=== PATIENT | female | born 1935 | race Caucasian/White ===

== ENCOUNTER 2016-05-24 10:44 | Outpatient (RCR) | payer MEDICARE ==
--- OUTSIDE RECORDS SUMMARY | 2016-04-25 13:09 | XMS REPORT | Continuity of Care Document ---
Author Author [facility] Organization [facility] Address Unknown Phone Unavailable Allergies Active Description Code Type Severity Reaction Onset Reported/Identified Relationship to Patient Clinical Status Yes benazepril HCl [id number] Drug Allergy Unknown COUGH 05/15/2012 Yes Cephalexin Monohydrate [id number] Drug Allergy Unknown RASH 05/15/2012 Yes hydrochlorothiazide [id number] Drug Allergy Unknown ITCHING 05/15/2012 Yes irbesartan [id number] Drug Allergy Unknown RASH 05/15/2012 Yes pantoprazole sodium [id number] Drug Allergy Unknown N/V 05/15/2012 Yes sulfamethoxazole [id number] Drug Allergy Unknown RASH 05/15/2012 Yes trimethoprim [id number] Drug Allergy Unknown RASH 05/15/2012 Medications Problems Date Dx Coded Attending Type Code Diagnosis Diagnosed By 05/20/2012 Ot 244.9 05/20/2012 Ot 250.00 05/20/2012 Ot 272.0 05/20/2012 Ot 300.00 05/20/2012 Ot 311 05/20/2012 Ot 401.9 05/20/2012 Ot 493.90 05/20/2012 Ot 530.81 05/20/2012 Ot 564.1 05/20/2012 Ot 724.3 05/20/2012 Ot 729.1 05/20/2012 Ot 824.8 05/20/2012 Ot E000.8 05/20/2012 Ot E849.0 05/20/2012 Ot E927.0 05/20/2012 Ot V57.1 05/20/2012 Ot V57.21 10/24/2012 ELLI ALMONTE MD Ot 724.3 10/24/2012 ELLI ALMONTE MD Ot V57.1 05/22/2013 IZABELLA MENSAH APRN Ot 599.0 05/22/2013 IZABELLA MENSAH APRN Ot 790.29 05/22/2013 IZAEBLLA MENSAH APRN Ot E849.0 05/22/2013 IZABELLA MENSAH APRN Ot E932.0 09/17/2013 ADONIS MAY Ot 722.4 09/17/2013 ADONIS MAY Ot V57.1 11/12/2014 Ot V76.12 11/12/2014 Ot V76.12 11/12/2014 Ot 824.8 11/12/2014 Ot E000.8 11/12/2014 Ot E849.0 11/12/2014 Ot E888.9 11/12/2014 Ot 824.8 11/12/2014 Ot E000.8 11/12/2014 Ot E928.9 11/12/2014 Ot V72.63 11/12/2014 Ot V72.81 11/12/2014 Ot V74.8 11/12/2014 TROY OSBORN DO Ot 724.02 11/12/2014 TROY OSBORN DO Ot 726.5 12/13/2014 ELLI ALMONTE MD Ot Z12.31 01/04/2015 ELLI ALMONTE MD Ot Z12.31 Procedures Results Encounters ACCT No. Visit Date/Time Discharge Status Pt. Type Provider Facility Loc./Unit Complaint [id number] 12/09/2014 10:32:00 2014 23:59:59 CLS Outpatient ELLI ALMONTE MD [facility] RAD [id number] 08/20/2013 12:56:00 2013 14:41:00 DIS Outpatient ADONIS MAY [facility] REHAB [id number] 05/22/2013 20:30:00 2013 21:55:00 DIS Emergency IZABELLA MENSAH APRN [facility] ER [id number] 05/14/2013 13:29:00 2013 23:59:59 CLS Outpatient TROY OSBORN DO [facility] RAD [id number] 08/26/2012 11:15:00 2012 11:22:00 DIS Outpatient ELLI ALMONTE MD [facility] REHAB [id number] 04/25/2016 14:40:00 PEN Preadmit ELLI ALMONTE MD [facility] REHAB PERIPHERAL NEUROPATHY;DECONDITIONING;FALLS [id number] 11/12/2014 15:26:00 Document Registration [id number] 05/19/2012 08:09:00 Document Registration [id number] 05/15/2012 13:59:00 Document Registration [id number] 06/28/2011 13:49:00 Document Registration [id number] 05/18/2010 10:49:00 Document Registration
[~2016-05-24 10:44] MED LIST: ALBU8.5H2 IH; AMLO5TAB2 PO; ASP81TEC PO; ATEN25TA PO; CETI10TA17 PO; ESCT10T PO; FURO40TA4 PO; GLIM1TAB PO; LOPE2TAB17 PO; LOSA50TA6 PO; LVT.05T PO; METF500T8 PO; NITR-65 PO; OMEG1CAP51 PO; PROBIOTIC1 EACH PO; RABE20TA PO; [UNRECOGNIZED DRUG - OTHER] PO
== END 2016-05-24 11:13 | disposition home or self-care (01) ==
PROVIDERS: ATTEND Internal Medicine
DX: E11.40 Type 2 diabetes mellitus with diabetic neuropathy, unspecified (principal); R27.9 Unspecified lack of coordination; R29.6 Repeated falls

== ENCOUNTER 2016-07-06 12:22 | Emergency (ER) | payer MEDICARE ==
[~2016-07-06] VITALS: Ht 157.5 cm; Wt 86.2 kg
--- NOTE | 2016-07-06 12:40 | ED Cough/URI ---
General Stated Complaint: SOA,COUGH Source: patient Exam Limitations: no limitations History of Present Illness Time seen by provider: 12:39 Initial Comments Brought to ER by hospital staff from the cafeteria where she was noted to be coughing quite dramatically and there was concern for an asthma attack. Patient has a history of asthma but is not on medication for that any longer. She denies feeling short of breath at this time is no longer coughing. She states that she's been having these episodes more frequently over the past few weeks. No fevers or chills. Timing/Duration: just prior to arrival Severity/Quality: dry cough Associated Symptoms: denies symptoms Allergies and Home Medications Allergies Coded Allergies: Cephalexin Monohydrate (Unverified Allergy, RASH, 05/15/12) Sulfamethoxazole (Unverified Allergy, RASH, 05/15/12) benazepril HCl (Unverified Allergy, COUGH, 05/15/12) hydrochlorothiazide (Unverified Allergy, ITCHING, 05/15/12) irbesartan (Unverified Allergy, RASH, 05/15/12) pantoprazole sodium (Unverified Allergy, N/V, 05/15/12) trimethoprim (Unverified Allergy, RASH, 05/15/12) Home Medications Amlodipine Besylate 5 Mg Tablet, 5 MG PO HS, (Reported) Aspirin 81 Mg Tabec, 81 MG PO HS, (Reported) Atenolol 25 Mg Tablet, 25 MG PO DAILY, (Reported) Benzonatate 100 Mg Capsule, 100 MG PO TID PRN for COUGH, #14 Prescribed by: IZABELLA MENSAH on 07/06/16 1331 Escitalopram Oxalate 10 Mg Tablet, 1 EACH PO DAILY, (Reported) Furosemide 40 Mg Tablet, 40 MG PO DAILY, (Reported) Glimepiride 1 Mg Tablet, 0.5 MG PO BID, (Reported) TAKES 1/2 TAB OF 1 MG BEFORE BREAKFAST AND BEFORE SUPPER Lactobacillus Rhamnosus Gg 1 Each Capsule, 1 TAB PO DAILY, (Reported) Levothyroxine Sodium 50 Mcg Tablet, 50 MCG PO DAILY, (Reported) Loperamide Hcl 2 Mg Tablet, 4 MG PO DAILY PRN, (Reported) PRN DIARRHEA Losartan Potassium 50 Mg Tablet, 50 MG PO DAILY, (Reported) Metformin Hcl 500 Mg Tab.sr.24h, 500 MG PO BID WITH MEALS, (Reported) [place]-3 Fatty Acids/Fish Oil 1 Each Capsule, 1,000 MG PO BID, (Reported) Rabeprazole Sodium 20 Mg Tablet.dr, 20 MG PO DAILY, (Reported) [Mult-Betic] , 2 TAB PO DAILY, (Reported) OTC MULTIVITAMIN WITH MINERALS Constitutional: see HPI, No chills, No fever EENTM: see HPI Respiratory: see HPI, cough Cardiovascular: no symptoms reported Genitourinary: no symptoms reported Musculoskeletal: no symptoms reported Skin: no symptoms reported Psychiatric/Neurological: No Symptoms Reported Past Aloxjvy-Cpdffc-Ceuzoc Hx Patient Social History Recent Foreign Travel: No Contact w/Someone Who Travel: No Immunizations Up To Date Date of Pneumonia Vaccine: Nov 18, 2009 Date of Influenza Vaccine: Oct 20, 2011 Surgeries HX Surgeries: Yes Respiratory Hx Respiratory Disorders: Yes Cardiovascular Hx Cardiac Disorders: Yes Neurological Hx Neurological Disorders: Yes (SCIATICA, FIBROMYALGIA) Reproductive System Hx Reproductive Disorders: No Genitourinary Hx Genitourinary Disorders: No Gastrointestinal Hx Gastrointestinal Disorders: Yes Musculoskeletal Hx Musculoskeletal Disorders: Yes (ARTHITIS) Endocrine Hx Endocrine Disorders: Yes HEENT HX ENT Disorders: No Blood Transfusions Hx Blood Disorders: No Physical Exam Vital Signs Vital Sign - Last 12Hours 07/06/16 13:00 Temp 98.2 Pulse 80 Resp 13 B/P (MAP) 180/90 Pulse Ox 95 Capillary Refill : General Appearance: WD/WN, no apparent distress Eyes: Bilateral Eye EOMI, Bilateral Eye Normal Inspection, Bilateral Eye PERRL HEENT: PERRL/EOMI, normal ENT inspection Neck: non-tender, full range of motion Respiratory: normal breath sounds, no respiratory distress, no accessory muscle use, No decreased breath sounds, No accessory muscle use, other (good air movement with no wheezing) Cardiovascular: regular rate, rhythm Gastrointestinal: normal bowel sounds, non tender, soft Extremities: normal range of motion, non-tender Neurologic/Psychiatric: alert, normal mood/affect, oriented x 3 Skin: normal color, warm/dry Progress/Results/Core Measures Results/Orders Lab Results Laboratory Tests Test 07/06/16 13:10 Range/Units White Blood Count 6.8 4.3-11.0 10^3/uL Red Blood Count 4.92 4.35-5.85 10^6/uL Hemoglobin 13.4 11.5-16.0 G/DL Hematocrit 40 35-52 % Mean Corpuscular Volume 82 80-99 FL Mean Corpuscular Hemoglobin 27 25-34 PG Mean Corpuscular Hemoglobin Concent 33 32-36 G/DL Red Cell Distribution Width 13.8 10.0-14.5 % Platelet Count 242 130-400 10^3/uL Mean Platelet Volume 9.9 7.4-10.4 FL Neutrophils (%) (Auto) 71 42-75 % Lymphocytes (%) (Auto) 19 12-44 % Monocytes (%) (Auto) 9 0-12 % Eosinophils (%) (Auto) 2 0-10 % Basophils (%) (Auto) 1 0-10 % Neutrophils # (Auto) 4.8 1.8-7.8 X 10^3 Lymphocytes # (Auto) 1.3 1.0-4.0 X 10^3 Monocytes # (Auto) 0.6 0.0-1.0 X 10^3 Eosinophils # (Auto) 0.1 0.0-0.3 10^3/uL Basophils # (Auto) 0.1 0.0-0.1 10^3/uL Sodium Level 139 135-145 MMOL/L Potassium Level 4.2 3.6-5.0 MMOL/L Chloride Level 107 98-107 MMOL/L Carbon Dioxide Level 22 21-32 MMOL/L Anion Gap 10 5-14 MMOL/L Blood Urea Nitrogen 8 7-18 MG/DL Creatinine 0.81 0.60-1.30 MG/DL Estimat Glomerular Filtration Rate > 60 BUN/Creatinine Ratio 10 Glucose Level 231 H 70-105 MG/DL Calcium Level 9.1 8.5-10.1 MG/DL Total Bilirubin 0.5 0.1-1.0 MG/DL Aspartate Amino Transf (AST/SGOT) 25 5-34 U/L Alanine Aminotransferase (ALT/SGPT) 21 0-55 U/L Alkaline Phosphatase 86 40-136 U/L Total Protein 6.6 6.4-8.2 G/DL Albumin 4.0 3.2-4.5 G/DL My Orders Orders - IZABELLA MENSAH APRN Saline Lock/Iv-Start (07/06/16 12:29) Ekg Tracing (07/06/16 12:29) Cbc With Automated Diff (07/06/16 12:29) Comprehensive Metabolic Panel (07/06/16 12:29) Chest Pa/Lat (2 View) (07/06/16 12:29) Vital Signs/I&O Vital Sign - Last 12Hours 07/06/16 13:00 Temp 98.2 Pulse 80 Resp 13 B/P (MAP) 180/90 Pulse Ox 95 Departure Impression Impression: Primary Impression: Cough Disposition: HOME, SELF-CARE Condition: Stable Departure-Patient Inst. Decision time for Depature: 13:30 Referrals: ELLI ALMONTE MD (PCP/Family) Primary Care Physician Patient Instructions: Cough, Adult (DC) Add. Discharge Instructions: 1. Follow-up with your regular doctor next week 2. Return to ER for any concerns 3. Medication as directed Scripts Benzonatate (Tessalon Perle) 100 Mg Capsule 100 MG PO TID Y for COUGH, #14 CAP Prov: IZABELLA MENSAH APRN 07/06/16 Copy Copies To 1: ELLI ALMONTE MD, PETER J APRN July 06, 2016 12:40
[2016-07-06 13:18] LABS: BASOPHILS # (AUTO) 0.1 10^3/uL (0.0-0.1); BASOPHILS % (AUTO) 1 % (0-10); EOSINOPHILS # (AUTO) 0.1 10^3/uL (0.0-0.3); EOSINOPHILS % (AUTO) 2 % (0-10); LYMPHOCYTES # (AUTO) 1.3 X 10^3 (1.0-4.0); LYMPHOCYTES % (AUTO) 19 % (12-44); MEAN CORPUSCULAR HEMOGLOBIN 27 PG (25-34); MEAN CORPUSCULAR HGB CONC 33 G/DL (32-36); MEAN CORPUSCULAR VOLUME 82 FL (80-99); MEAN PLATELET VOLUME 9.9 FL (7.4-10.4); MONOCYTES # (AUTO) 0.6 X 10^3 (0.0-1.0); MONOCYTES % (AUTO) 9 % (0-12); NEUTROPHILS # (AUTO) 4.8 X 10^3 (1.8-7.8); NEUTROPHILS % (AUTO) 71 % (42-75); PLATELET COUNT 242 10^3/uL (130-400); RED BLOOD COUNT 4.92 10^6/uL (4.35-5.85); RED CELL DISTRIBUTION WIDTH 13.8 % (10.0-14.5); WHITE BLOOD COUNT 6.8 10^3/uL (4.3-11.0)
[2016-07-06] MEDS ORDERED: BENZ-13 PO (13:31)
[2016-07-06 13:35] LABS: ALANINE AMINOTRANSFERASE 21 U/L (0-55); ANION GAP 10 MMOL/L (5-14); ASPARTATE AMINO TRANSFERASE 25 U/L (5-34); BILIRUBIN,TOTAL 0.5 MG/DL (0.1-1.0); BLOOD UREA NITROGEN 8 MG/DL (7-18); BUN/CREATININE RATIO 10; CALCIUM 9.1 MG/DL (8.5-10.1); CARBON DIOXIDE 22 MMOL/L (21-32); CHLORIDE 107 MMOL/L (98-107); CREATININE SERUM 0.81 MG/DL (0.60-1.30); GFR ESTIMATED > 60; GLUCOSE 231 MG/DL (70-105); POTASSIUM 4.2 MMOL/L (3.6-5.0); SODIUM 139 MMOL/L (135-145); TOTAL PROTEIN 6.6 G/DL (6.4-8.2)
--- NOTE | 2016-07-06 13:36 | Diagnostic Imaging Report ---
INDICATION: Coughing fit after eating. FINDINGS: PA and lateral views show the lungs to be well-aerated and clear. No infiltrates to suggest aspiration. No radiopaque foreign bodies. The heart is not enlarged. There is no pulmonary edema. Hilar adenopathy. No pneumothorax or pleural effusion. IMPRESSION: Normal PA and lateral chest. Dictated by: Dictated on workstation # [id number]
[2016-07-06 14:07] VITALS: BP 164/69
== END 2016-07-06 14:10 | disposition home or self-care (01) ==
LOC: EDUNIT# 12:22 → ER 12:24
DX: R05 Cough (principal); E11.9 Type 2 diabetes mellitus without complications; J45.909 Unspecified asthma, uncomplicated; Z79.82 Long term (current) use of aspirin; Z79.899 Other long term (current) drug therapy
CPT/HCPCS: 36415; 71020; 80053; 85025; 93005

== ENCOUNTER 2016-08-15 17:07 | Observation (INO) | payer MEDICARE ==
[~2016-08-15] VITALS: Ht 157.5 cm; Wt 86.2 kg
[~2016-08-15 17:07] MED LIST changes: +BENZ-13 PO
--- OUTSIDE RECORDS SUMMARY | 2016-08-15 17:13 | XMS REPORT | Continuity of Care Document ---
Author Author [facility] Organization [facility] Address Unknown Phone Unavailable Allergies Active Description Code Type Severity Reaction Onset Reported/Identified Relationship to Patient Clinical Status Yes benazepril HCl [id number] Drug Allergy Unknown COUGH 05/15/2012 Yes Cephalexin Monohydrate [id number] Drug Allergy Unknown RASH 05/15/2012 Yes hydrochlorothiazide [id number] Drug Allergy Unknown ITCHING 05/15/2012 Yes irbesartan [id number] Drug Allergy Unknown RASH 05/15/2012 Yes pantoprazole sodium [id number] Drug Allergy Unknown N/V 05/15/2012 Yes sulfamethoxazole [id number] Drug Allergy Unknown RASH 05/15/2012 Yes trimethoprim [id number] Drug Allergy Unknown RASH 05/15/2012 Medications Problems [...] 05/22/2013 IZABELLA MENSAH APRN Ot 790.29 05/22/2013 IZABELLA MENSAH APRN Ot E849.0 05/22/2013 IZABELLA MENSAH APRN Ot E932.0 09/17/2013 ADONIS MAY Ot 722.4 09/17/2013 ADONIS MAY Ot V57.1 11/12/2014 Ot V76.12 11/12/2014 Ot V76.12 11/12/2014 Ot 824.8 11/12/2014 Ot E000.8 11/12/2014 Ot E849.0 11/12/2014 Ot E888.9 11/12/2014 Ot 824.8 11/12/2014 Ot E000.8 11/12/2014 Ot E928.9 11/12/2014 Ot V72.63 11/12/2014 Ot V72.81 11/12/2014 Ot V74.8 11/12/2014 ANURAG DO, TROY F Ot 724.02 11/12/2014 ANURAG DO, TROY F Ot 726.5 12/13/2014 ELLI ALMONTE MD Ot Z12.31 01/04/2015 ELLI ALMONTE MD Ot Z12.31 05/01/2016 ELLI ALMONTE MD Ot E11.40 TYPE 2 DIABETES MELLITUS WITH DIABETIC N 05/01/2016 ELLI ALMONTE MD Ot R27.9 UNSPECIFIED LACK OF COORDINATION 05/01/2016 ELLI ALMONTE MD Ot R29.6 REPEATED FALLS 05/24/2016 ELLI ALMONTE MD Ot E11.40 TYPE 2 DIABETES MELLITUS WITH DIABETIC N 05/24/2016 ELLI ALMONTE MD Ot R27.9 UNSPECIFIED LACK OF COORDINATION 05/24/2016 ELLI ALMONTE MD Ot R29.6 REPEATED FALLS 07/06/2016 IZABELLA MENSAH APRN Ot E11.9 TYPE 2 DIABETES MELLITUS WITHOUT COMPLIC 07/06/2016 IZABELLA MENSAH APRN Ot J45.909 UNSPECIFIED ASTHMA, UNCOMPLICATED 07/06/2016 IZABELLA MENSAH APRN Ot R05 COUGH 07/06/2016 IZABELLA MENSAH APRN Ot Z79.82 [employer] (CURRENT) USE OF ASPIRIN 07/06/2016 IZABELLA MENSAH APRN Ot Z79.899 OTHER ASSISTED (CURRENT) DRUG THERAPY 07/09/2016 IZABELLA MENSAH APRN Ot E11.9 TYPE 2 DIABETES MELLITUS WITHOUT COMPLIC 07/09/2016 IZABELLA MENSAH APRN Ot J45.909 UNSPECIFIED ASTHMA, UNCOMPLICATED 07/09/2016 IZABELLA MENSAH APRN Ot R05 COUGH 07/09/2016 IZABELLA MENSAH APRN Ot Z79.82 [employer] (CURRENT) USE OF ASPIRIN 07/09/2016 IZABELLA MENSAH APRN Ot Z79.899 OTHER EN[employer]ANT (CURRENT) DRUG THERAPY 07/12/2016 IZABELLA MENSAH APRN Ot E11.9 TYPE 2 DIABETES MELLITUS WITHOUT COMPLIC 07/12/2016 IZABELLA MENSAH APRN Ot J45.909 UNSPECIFIED ASTHMA, UNCOMPLICATED 07/12/2016 IZABELLA MENSAH APRN Ot R05 COUGH 07/12/2016 IZABELLA MENSAH APRN Ot Z79.82 ASSISTED (CURRENT) USE OF ASPIRIN 07/12/2016 IZABELLA MENSAH APRN Ot Z79.899 OTHER ASSISTED (CURRENT) DRUG THERAPY Procedures Results Test Result Range Complete blood count (CBC) with automated white blood cell (WBC) differential - 07/06/16 13:10 Blood leukocytes automated count (number/volume) 6.8 10*3/ uL 4.3-11.0 Blood erythrocytes automated count (number/volume) 4.92 10*6 /uL 4.35-5.85 Venous blood hemoglobin measurement (mass/volume) 13.4 g/dL 11.5-16.0 Blood hematocrit (volume fraction) 40 % 35-52 Automated erythrocyte mean corpuscular volume 82 [foz_us] 80-99 Automated erythrocyte mean corpuscular hemoglobin (mass per erythrocyte) 27 pg 25-34 Automated erythrocyte mean corpuscular hemoglobin concentration measurement ( mass/volume) 33 g/dL 32-36 Automated erythrocyte distribution width ratio 13.8 % 10.0-14.5 Automated blood platelet count (count/volume) 242 10*3/uL 130-400 Automated blood platelet mean volume measurement 9.9 [foz_us ] 7.4-10.4 Automated blood neutrophils/100 leukocytes 71 % 42-75 Automated blood lymphocytes/100 leukocytes 19 % 12-44 Blood monocytes/100 leukocytes 9 % 0-12 Automated blood eosinophils/100 leukocytes 2 % 0-10 Automated blood basophils/100 leukocytes 1 % 0-10 Blood neutrophils automated count (number/volume) 4.8 10*3 1.8-7.8 Blood lymphocytes automated count (number/volume) 1.3 10*3 1.0-4.0 Blood monocytes automated count (number/volume) 0.6 10*3 0.0-1.0 Automated eosinophil count 0.1 10*3/uL 0.0-0.3 Automated blood basophil count (count/volume) 0.1 10*3/uL 0.0-0.1 Comprehensive metabolic panel - 07/06/16 13:10 Serum or plasma sodium measurement (moles/volume) 139 mmol/ L 135-145 Serum or plasma potassium measurement (moles/volume) 4.2 mmol/L 3.6-5.0 Serum or plasma chloride measurement (moles/volume) 107 mmol /L 98-107 Carbon dioxide 22 mmol/L 21-32 Serum or plasma anion gap determination (moles/volume) 10 mmol/L 5-14 Serum or plasma urea nitrogen measurement (mass/volume) 8 mg /dL 7-18 Serum or plasma creatinine measurement (mass/volume) 0.81 mg /dL 0.60-1.30 Serum or plasma urea nitrogen/creatinine mass ratio 10 NRG Serum or plasma creatinine measurement with calculation of estimated glomerular filtration rate > NRG Serum or plasma glucose measurement (mass/volume) 231 mg/dL 70-105 Serum or plasma calcium measurement (mass/volume) 9.1 mg/dL 8.5-10.1 Serum or plasma total bilirubin measurement (mass/volume) 0.5 mg/dL 0.1-1.0 Serum or plasma alkaline phosphatase measurement (enzymatic activity/volume) 86 U/L 40-136 Serum or plasma aspartate aminotransferase measurement (enzymatic activity/ volume) 25 U/L 5-34 Serum or plasma alanine aminotransferase measurement (enzymatic activity/volume ) 21 U/L 0-55 Serum or plasma protein measurement (mass/volume) 6.6 g/dL 6.4-8.2 Serum or plasma albumin measurement (mass/volume) 4.0 g/dL 3.2-4.5 Encounters ACCT No. Visit Date/Time Discharge Status Pt. Type Provider Facility Loc./Unit Complaint [id number] 07/06/2016 12:24:00 2016 14:10:00 DIS Emergency IZABELLA MENSAH APRN [facility] ER SOA,COUGH [id number] 05/24/2016 10:44:00 2016 11:13:00 DIS Outpatient ELLI ALMONTE MD [facility] REHAB PERIPHERAL NEUROPATHY;DECONDITIONING; FALLS [id number] 12/09/2014 10:32:00 2014 23:59:59 CLS Outpatient ELLI ALMONTE MD [facility] RAD [id number] 08/20/2013 12:56:00 2013 14:41:00 DIS Outpatient ADONIS MAY [facility] REHAB [id number] 05/22/2013 20:30:00 2013 21:55:00 DIS Emergency IZABELLA MENSAH APRN [facility] ER [id number] 05/14/2013 13:29:00 2013 23:59:59 CLS Outpatient TROY OSBORN DO [facility] RAD [id number] 08/26/2012 11:15:00 2012 11:22:00 DIS Outpatient ELLI ALMONTE MD [facility] REHAB [id number] 11/12/2014 15:26:00 Document Registration [id number] 05/19/2012 08:09:00 Document Registration [id number] 05/15/2012 13:59:00 Document Registration [id number] 06/28/2011 13:49:00 Document Registration [id number] 05/18/2010 10:49:00 Document Registration
[2016-08-15] MEDS ORDERED: INSU100I29 SC (17:17)
[2016-08-15] MEDS ORDERED: SAXA5TAB PO (17:17)
[2016-08-15] MEDS ORDERED: ASPIRIN 81 MG CHEW (CHILDREN'S ASA) PO ONE (17:30)
--- NOTE | 2016-08-15 17:36 | ED Chest Pain ---
General Chief Complaint: Chest Pain Stated Complaint: SOB/UPPER ABD PAIN/JAW PAIN Nursing Triage Note: Patient reports bilateral chest pain starting while she was moving a bicycle. patient reports pain went into bilateral jaw with SOA. patient reports she has had a intermittent cough for the past couple months Nursing Sepsis Screen: No Definite Risk Source: patient Exam Limitations: no limitations (CRISTINE YANCEY MD) History of Present Illness Time seen by provider: 17:22 Initial Comments Here with acute onset of chest discomfort starting at 1630. She describes the discomfort as pain to the lower chest wall upper abdomen as well as pain to the jaw bilaterally. This was associated with dizziness and lightheadedness and sweating. This lasted about 20 minutes and then resolved. Ultimately she came to ER for further evaluation. Overall she states that she feels better now but still has some stomach discomfort. She did have shortness of breath earlier but that has mostly resolved now. 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 NTG SL LOGGING RAFTER LABORER: No Associated Symptoms: abdominal pain, No back pain, diaphoresis, dizziness, No fever/chills, No nausea/vomiting, shortness of breath, weakness (CRISTINE YANCEY MD) Allergies and Home Medications Allergies Coded Allergies: Cephalexin Monohydrate (Unverified Allergy, Unknown, RASH, 08/15/16) benazepril HCl (Unverified Allergy, Unknown, COUGH, 08/15/16) hydrochlorothiazide (Unverified Allergy, Unknown, ITCHING, 08/15/16) irbesartan (Unverified Allergy, Unknown, RASH, 08/15/16) pantoprazole sodium (Unverified Allergy, Unknown, N/V, 08/15/16) sulfamethoxazole (Unverified Allergy, Unknown, RASH, 08/15/16) trimethoprim (Unverified Allergy, Unknown, RASH, 08/15/16) Home Medications Amlodipine Besylate 5 Mg Tablet, 5 MG PO HS, (Reported) Aspirin 81 Mg Tabec, 81 MG PO HS, (Reported) Atenolol 25 Mg Tablet, 25 MG PO DAILY, (Reported) Escitalopram Oxalate 10 Mg Tablet, 1 EACH PO DAILY, (Reported) Furosemide 40 Mg Tablet, 40 MG PO DAILY, (Reported) Glimepiride 1 Mg Tablet, 0.5 MG PO BID, (Reported) TAKES 1/2 TAB OF 1 MG BEFORE BREAKFAST AND BEFORE SUPPER Insulin Detemir 100 Unit/1 Ml Insuln.pen, #15 (Reported) Lactobacillus Rhamnosus Gg 1 Each Capsule, 1 TAB PO DAILY, (Reported) Levothyroxine Sodium 50 Mcg Tablet, 50 MCG PO DAILY, (Reported) Loperamide Hcl 2 Mg Tablet, 4 MG PO DAILY PRN, (Reported) PRN DIARRHEA Losartan Potassium 50 Mg Tablet, 50 MG PO DAILY, (Reported) Metformin Hcl 500 Mg Tab.sr.24h, 500 MG PO BID WITH MEALS, (Reported) Escalon-3 Fatty Acids/Fish Oil 1 Each Capsule, 1,000 MG PO BID, (Reported) Rabeprazole Sodium 20 Mg Tablet.dr, 20 MG PO DAILY, (Reported) Saxagliptin HCl 5 Mg Tablet, #30 (Reported) [Mult-Betic] , 2 TAB PO DAILY, (Reported) OTC MULTIVITAMIN WITH MINERALS Review of Systems Constitutional: see HPI, No chills, No fever EENTM: No Symptoms Reported Respiratory: No Symptoms Reported, Denies Cough, Shortness of Air Cardiovascular: See HPI, Chest Pain, Denies Edema Gastrointestinal: No Symptoms Reported, Denies Abdominal Pain, Denies Nausea, Denies Vomiting Genitourinary: No Symptoms Reported Musculoskeletal: no symptoms reported Skin: no symptoms reported Psychiatric/Neurological: No Symptoms Reported (CRISTINE YANCEY MD) All Other Systems Reviewed Negative Unless Noted: Yes (CRISTINE YANCEY MD) Past Wsmwbsq-Gmxfnm-Swhilj Hx Patient Social History Alcohol Use: Denies Use Recreational Drug Use: No Smoking Status: Never a Smoker Recent Foreign Travel: No Contact w/Someone Who Travel: No Recent Infectious Disease Expo: No Recent Hopitalizations: No (CRISTINE YANCEY MD) Immunizations Up To Date Date of Pneumonia Vaccine: Nov 18, 2009 Date of Influenza Vaccine: Oct 20, 2011 (CRISTINE YANCEY MD) Surgeries HX Surgeries: Yes Surgeries: Appendectomy, Hysterectomy (CRISTINE YANCEY MD) Respiratory Hx Respiratory Disorders: Yes (CRISTINE YANCEY MD) Cardiovascular Hx Cardiac Disorders: Yes Cardiac Disorders: High Cholesterol, Hypertension (CRISTINE YANCEY MD) Neurological Hx Neurological Disorders: Yes (SCIATICA, FIBROMYALGIA) (CRISTINE YANCEY MD) Reproductive System Hx Reproductive Disorders: No (CRISTINE YANCEY MD) Genitourinary Hx Genitourinary Disorders: No (CRISTINE YANCEY MD) Gastrointestinal Hx Gastrointestinal Disorders: Yes Gastrointestinal Disorders: Gastroesophageal Reflux (CRISTINE YANCEY MD) Musculoskeletal Hx Musculoskeletal Disorders: Yes (ARTHITIS) Musculoskeletal Disorders: Arthritis (CRISTINE YANCEY MD) Endocrine Hx Endocrine Disorders: Yes (CRISTINE YANCEY MD) HEENT HX ENT Disorders: No (CRISTINE YANCEY MD) Psychosocial Behavioral Health Disorders: Depression (CRISTINE YANCEY MD) Blood Transfusions Hx Blood Disorders: No (CRISTINE YANCEY MD) Reviewed Nursing Assessment Reviewed/Agree w Nursing PMH: Yes (CRISTINE YANCEY MD) Physical Exam Vital Signs Vital Sign - Last 12Hours (JANETH VILLA MD) Vital Signs Capillary Refill : Less Than 3 Seconds (CRISTINE YANCEY MD) General Appearance: No Apparent Distress, WD/WN HEENT: PERRL/EOMI, Pharynx Normal Neck: Non Tender, Supple Respiratory: Lungs Clear, Normal Breath Sounds Cardiovascular: Regular Rate, Rhythm, No Murmur Gastrointestinal: Non Tender, Soft Extremity: Normal Inspection, Non Tender, No Calf Tenderness Neurologic/Psychiatric: Alert, Oriented x3, No Motor/Sensory Deficits Skin: Normal Color, Warm/Dry (CRISTINE YANCEY MD) Progress/Results/Core Measures Results/Orders Lab Results Laboratory Tests Test 08/15/16 17:20 Range/Units White Blood Count 7.6 4.3-11.0 10^3/uL Red Blood Count 4.67 4.35-5.85 10^6/uL Hemoglobin 12.7 11.5-16.0 G/DL Hematocrit 37 35-52 % Mean Corpuscular Volume 79 L 80-99 FL Mean Corpuscular Hemoglobin 27 25-34 PG Mean Corpuscular Hemoglobin Concent 34 32-36 G/DL Red Cell Distribution Width 13.9 10.0-14.5 % Platelet Count 270 130-400 10^3/uL Mean Platelet Volume 9.9 7.4-10.4 FL Neutrophils (%) (Auto) 65 42-75 % Lymphocytes (%) (Auto) 22 12-44 % Monocytes (%) (Auto) 11 0-12 % Eosinophils (%) (Auto) 2 0-10 % Basophils (%) (Auto) 1 0-10 % Neutrophils # (Auto) 5.0 1.8-7.8 X 10^3 Lymphocytes # (Auto) 1.7 1.0-4.0 X 10^3 Monocytes # (Auto) 0.9 0.0-1.0 X 10^3 Eosinophils # (Auto) 0.1 0.0-0.3 10^3/uL Basophils # (Auto) 0.0 0.0-0.1 10^3/uL Prothrombin Time 12.2 12.2-14.7 SEC INR Comment 0.9 0.8-1.4 Activated Partial Thromboplast Time 24 24-35 SEC D-Dimer 0.82 H 0.00-0.49 UG/ML Sodium Level 141 135-145 MMOL/L Potassium Level 3.4 L 3.6-5.0 MMOL/L Chloride Level 105 98-107 MMOL/L Carbon Dioxide Level 26 21-32 MMOL/L Anion Gap 10 5-14 MMOL/L Blood Urea Nitrogen 13 7-18 MG/DL Creatinine 0.82 0.60-1.30 MG/DL Estimat Glomerular Filtration Rate > 60 BUN/Creatinine Ratio 16 Glucose Level 205 H 70-105 MG/DL Calcium Level 9.1 8.5-10.1 MG/DL Magnesium Level 1.7 L 1.8-2.4 MG/DL Total Bilirubin 0.4 0.1-1.0 MG/DL Aspartate Amino Transf (AST/SGOT) 19 5-34 U/L Alanine Aminotransferase (ALT/SGPT) 21 0-55 U/L Alkaline Phosphatase 88 40-136 U/L Myoglobin 31.9 10.0-92.0 NG/ML Troponin I < 0.30 <0.30 NG/ML B-Type Natriuretic Peptide 106.0 H <100.0 PG/ML Total Protein 6.7 6.4-8.2 GM/DL Albumin 3.9 3.2-4.5 GM/DL Amylase Level 41 25-125 U/L Lipase 41 8-78 U/L (JANETH VILLA MD) My Orders Orders - JANETH VILLA MD Ct Angio Chest W (08/15/16 18:21) Ns Iv 500 Ml (Sodium Chloride 0.9%) (08/15/16 18:22) Iohexol Injection (Omnipaque 350 Mg/Ml 1 (08/15/16 18:45) Ns (Ivpb) (Sodium Chloride 0.9% Ivpb Bag (08/15/16 18:45) Nitroglycerin Ointment (Nitrobid Ointme (08/15/16 20:15) Enoxaparin Injection (Lovenox Injection) (08/15/16 20:15) (JANETH VILLA MD) Medications Given in ED Current Medications Medications Dose Ordered Sig/Alisa Route Start Time Stop Time Status Last Admin Dose Admin Aspirin 324 mg ONCE ONCE PO 08/15/16 17:30 08/15/16 17:31 DC 08/15/16 17:21 324 MG Iohexol 150 ml ONCE ONCE IV 08/15/16 18:45 08/15/16 18:50 DC 08/15/16 18:54 125 ML Sodium Chloride 100 ml ONCE ONCE IV 08/15/16 18:45 08/15/16 18:50 DC 08/15/16 18:54 80 ML Sodium Chloride 500 ml @ 0 mls/hr Q0M ONCE IV 08/15/16 18:22 08/15/16 18:23 DC 08/15/16 19:16 0 MLS/HR (JANETH VILLA MD) Vital Signs/I&O Vital Sign - Last 12Hours 08/15/16 08/15/16 17:14 17:14 Temp 98.2 Pulse 72 Resp 18 B/P (MAP) 156/70 Pulse Ox 96 O2 Delivery Nasal Cannula Room Air O2 Flow Rate 2.00 (JANETH VILLA MD) Blood Pressure Mean: 98 Progress Note : Progress Note Seen and evaluated. IV, labs, EKG and chest x-ray ordered. ASA 324 mg by mouth given. No nitros patient's jaw pain has resolved. She does have some mild stomach achiness but does not describe it as a pain. 1733: I did discuss the case with Dr. Lopez. We will await labs. (CRISTINE YANCEY MD) Progress Note #1: Time: 18:34 Progress Note Care of this patient was assumed from Dr. Yancey at 18:15. Patient denies any further chest pain but does have a little aching in the right jaw. EKG demonstrated new left bundle branch block. D-dimer was mildly elevated and CT angiogram was ordered. Patient was reexamined and found to have lungs clear to auscultation bilaterally. Heart was regular rate and rhythm without murmur. Lower extremities were mildly edematous and tender equal bilaterally. Progress Note #2: Time: 19:34 Progress Note Patient denies any further chest pain since admission to the ER. She does still feel a little short of breath. CT angiogram was negative. She reports some mild recurrence of bilateral jaw pain with exertion that has now gone again. Plan is for admission. This was discussed with patient. CODE STATUS was discussed with patient. She wishes to be a full code at this time but does not want prolonged life support. (JANETH VILLA MD) ECG Initial ECG Impression Date: Aug 15, 2016 Initial ECG Impression Time: 17:13 Initial ECG Rate: 79 Initial ECG Rhythm: Normal Sinus Comment Sinus rhythm with new onset left bundle branch block. Premature a truck complex. Leftward axis. Change from previous of 07/06/16 which was normal sinus rhythm. No evidence of ST elevation NH for concerning for lung bundle branch block. Interpreted by me. (CRISTINE YANCEY MD) Diagnostic Imaging Diagonstic Imaging: Xray Plain Films/CT/US/NM/MRI: chest Comments [facility], [facility]. [place], [place] NAME: BELLA FREEDMAN [facility] REC#: [id number] PT STATUS: REG ER : 1935 PHYSICIAN: CRISTINE YANCEY MD ADMIT DATE: 08/15/16/ER Draft Date of Exam:08/15/16 CHEST 1 VIEW, AP/PA ONLY INDICATION: Chest pain with EKG changes. COMPARISON: 07/06/16. EXAMINATION: Single view of the chest was obtained. FINDINGS: There is minimal atelectasis in the left lung base. Otherwise, visible lungs are clear. Posterior lower lobes are poorly evaluated by portable radiography. No pleural effusion or pneumothorax. Heart is normal in size. Normal pulmonary vasculature. IMPRESSION: No acute cardiopulmonary process by portable radiography. Dictated on workstation # [id number] Dict: 08/15/161734 Trans: 08/15/161736 [facility] [id number] Interpreted by: NOVA AU MD Electronically signed by: (CRISTINE YANCEY MD) Diagonstic Imaging: CT Plain Films/CT/US/NM/MRI: chest Comments CT angiogram of the chest viewed by me and report reviewed. See report below: NAME: BELLA FREEDMAN REC#: [id number] PT STATUS: REG ER : 1935 PHYSICIAN: JANETH VILLA MD ADMIT DATE: 08/15/16/ER Draft Date of Exam:08/15/16 CT ANGIO CHEST W PROCEDURE: CT angiography of the chest with contrast. TECHNIQUE: Multiple contiguous axial images were obtained through the chest after uneventful bolus administration of intravenous contrast. Reconstructed CTA MIP acquisitions were also performed. INDICATION: Chest pain. COMPARISON: Comparison is made with prior radiographs from earlier in the same day. FINDINGS: There is adequate opacification demonstrated of the pulmonary arterial system. There is no filling defect evident within the pulmonary arteries to suggest embolism. There are mild atherosclerotic calcifications within the thoracic aorta. There is no aneurysm or dissection. Heart size is within normal limits. There is no pericardial effusion. No pathologically enlarged mediastinal or hilar lymph nodes are demonstrated. The lungs demonstrate some mild dependent atelectasis and are otherwise clear. There are no focal pulmonary infiltrates. There is no consolidation, effusion or pneumothorax. There is a small nodule within the right middle lobe which measures 8 mm. Soft tissues at the base of the neck unremarkable. There is a small hiatal hernia. The visualized portion of the upper abdomen demonstrates no acute or suspicious process. There are mild multilevel degenerative endplate changes present throughout the thoracic spine. Vertebral body heights are maintained. Alignment is normal. There is no acute or suspicious osseous abnormality. IMPRESSION: 1. No CT angiographic evidence of pulmonary embolism. 2. Aortic atherosclerosis without dissection or aneurysm. 3. No focal pulmonary infiltrate, consolidation or effusion demonstrated. There is no pneumothorax. 4. 8 mm noncalcified right middle lobe pulmonary nodule. 5. No acute process within the upper abdomen. 6. Degenerative features within the spine without suspicious or acute osseous abnormality. Dictated on workstation # [id number] Dict: 08/15/161905 Trans: 08/15/161915 [id number] Interpreted by: LELA ARORA MD (JANETH VILLA MD) Departure Communication Time/Spoke to Admitting Phy: 19:45 Communication This case was reviewed with Dr. Fish. She agrees with admission and cardiac consultation. Per discussion, we will hold medications that could cause hypoglycemia with her being nothing by mouth after midnight. Sliding scale insulin will be ordered as an alternative. Time/Spoke to Consulting Physi: 19:40 Communication/Consulting Case was again reviewed with Dr. Lopez. He would like her to be nothing by mouth after midnight in preparation for studies. He also requested a nitroglycerin patch, Lovenox, and aspirin. (JANETH VILLA MD) Impression Impression: Primary Impression: Chest pain Qualified Codes: R07.9 - Chest pain, unspecified Additional Impression: New onset left bundle branch block (LBBB) Disposition: ADMITTED INPATIENT Condition: Improved Decision to Admit Reason: Admit from ER (General) Decision to Admit/Date: Aug 15, 2016 Time/Decision to Admit Time: 18:00 (JANETH VILLA MD) Departure-Patient Inst. Referrals: ELLI ALMONTE MD (PCP/Family) Primary Care Physician CRISTINE YANCEY MD Aug 15, 2016 17:35 JANETH VILLA MD Aug 15, 2016 18:36
[2016-08-15 17:45] LABS: BASOPHILS % (AUTO) 1 % (0-10); EOSINOPHILS # (AUTO) 0.1 10^3/uL (0.0-0.3); EOSINOPHILS % (AUTO) 2 % (0-10); LYMPHOCYTES # (AUTO) 1.7 X 10^3 (1.0-4.0); LYMPHOCYTES % (AUTO) 22 % (12-44); MEAN CORPUSCULAR HEMOGLOBIN 27 PG (25-34); MEAN CORPUSCULAR HGB CONC 34 G/DL (32-36); MEAN CORPUSCULAR VOLUME 79 FL (80-99); MEAN PLATELET VOLUME 9.9 FL (7.4-10.4); MONOCYTES # (AUTO) 0.9 X 10^3 (0.0-1.0); MONOCYTES % (AUTO) 11 % (0-12); NEUTROPHILS % (AUTO) 65 % (42-75); PLATELET COUNT 270 10^3/uL (130-400); RED BLOOD COUNT 4.67 10^6/uL (4.35-5.85); RED CELL DISTRIBUTION WIDTH 13.9 % (10.0-14.5); WHITE BLOOD COUNT 7.6 10^3/uL (4.3-11.0)
[2016-08-15 17:56] LABS: INR 0.9 (0.8-1.4); PROTHROMBIN TIME PATIENT 12.2 SEC (12.2-14.7)
[2016-08-15 18:04] LABS: ALANINE AMINOTRANSFERASE 21 U/L (0-55); ALBUMIN 3.9 GM/DL (3.2-4.5); AMYLASE 41 U/L (25-125); ANION GAP 10 MMOL/L (5-14); ASPARTATE AMINO TRANSFERASE 19 U/L (5-34); BILIRUBIN,TOTAL 0.4 MG/DL (0.1-1.0); BLOOD UREA NITROGEN 13 MG/DL (7-18); BUN/CREATININE RATIO 16; CALCIUM 9.1 MG/DL (8.5-10.1); CARBON DIOXIDE 26 MMOL/L (21-32); CHLORIDE 105 MMOL/L (98-107); CREATININE SERUM 0.82 MG/DL (0.60-1.30); GFR ESTIMATED > 60; GLUCOSE 205 MG/DL (70-105); LIPASE 41 U/L (8-78); MAGNESIUM 1.7 MG/DL (1.8-2.4); POTASSIUM 3.4 MMOL/L (3.6-5.0); SODIUM 141 MMOL/L (135-145); TOTAL PROTEIN 6.7 GM/DL (6.4-8.2)
[2016-08-15 18:11] LABS: MYOGLOBIN SERUM 31.9 NG/ML (10.0-92.0)
[2016-08-15] MEDS ORDERED: NS IV 500 ML 500 ML IV ONE (18:22)
[2016-08-15] MEDS ORDERED: IOHEXOL 350 MG/ML 150 ML (OMNIPAQUE 350) VIAL IV ONE (18:45)
[2016-08-15] MEDS ORDERED: NS 100 ML (IVPB) BAG IV ONE (18:45)
--- NOTE | 2016-08-15 19:17 | Diagnostic Imaging Report ---
PROCEDURE: CT angiography of the chest with contrast. TECHNIQUE: Multiple contiguous axial images were obtained through the chest after uneventful bolus administration of intravenous contrast. Reconstructed CTA MIP acquisitions were also performed. INDICATION: Chest pain. COMPARISON: Comparison is made with prior radiographs from earlier in the same day. FINDINGS: There is adequate opacification demonstrated of the pulmonary arterial system. There is no filling defect evident within the pulmonary arteries to suggest embolism. There are mild atherosclerotic calcifications within the thoracic aorta. There is no aneurysm or dissection. Heart size is within normal limits. There is no pericardial effusion. No pathologically enlarged mediastinal or hilar lymph nodes are demonstrated. The lungs demonstrate some mild dependent atelectasis and are otherwise clear. There are no focal pulmonary infiltrates. There is no consolidation, effusion or pneumothorax. There is a small nodule within the right middle lobe which measures 8 mm. Soft tissues at the base of the neck unremarkable. There is a small hiatal hernia. The visualized portion of the upper abdomen demonstrates no acute or suspicious process. There are mild multilevel degenerative endplate changes present throughout the thoracic spine. Vertebral body heights are maintained. Alignment is normal. There is no acute or suspicious osseous abnormality. IMPRESSION: 1. No CT angiographic evidence of pulmonary embolism. 2. Aortic atherosclerosis without dissection or aneurysm. 3. No focal pulmonary infiltrate, consolidation or effusion demonstrated. There is no pneumothorax. 4. 8 mm noncalcified right middle lobe pulmonary nodule. 5. No acute process within the upper abdomen. 6. Degenerative features within the spine without suspicious or acute osseous abnormality. Dictated by: Dictated on workstation # [id number]
[2016-08-15] MEDS ORDERED: NITROGLYCERIN 2% OINT 1 GM UNIT DOSE PACKET TOP ONE (20:15)
[2016-08-15] MEDS ORDERED: ENOXAPARIN 80 MG/0.8 ML (LOVENOX) SYR SC ONE (20:15)
[2016-08-15 20:55] VITALS: BP 173/80
[2016-08-15 21:19] VITALS: BP 177/80
[2016-08-15 21:26] VITALS: BP 167/76
[2016-08-15] MEDS ORDERED: NITROGLYCERIN SUBLINGUAL 0.4 MG TAB (NITROSTAT) SL PRN (21:30)
[2016-08-15] MEDS ORDERED: morphine INJ 4 MG/ML 1 ML (VIAL/SYRINGE) IV PRN (21:30)
[2016-08-15] MEDS ORDERED: CATHETER FLUSH 10 ML SYR IV PRN (21:30)
[2016-08-15 22:07] VITALS: BP 176/67
[2016-08-15 22:08] VITALS: BP 167/84
[2016-08-15] MEDS: NITROGLYCERIN 2% OINT 1 GM UNIT DOSE PACKET TOP SCH (22:15)
[2016-08-15] MEDS: CATHETER FLUSH 10 ML SYR IV SCH (22:15)
[2016-08-15 23:15] VITALS: BP 132/73
[2016-08-16] VITALS (9 sets, daily range): BP systolic 127–197; BP diastolic 61–89
[2016-08-16 00:36] LABS: TROPONIN I < 0.30 NG/ML (<0.30)
[2016-08-16] MEDS ORDERED: inSUlin ASPART (NovoLOG) 1 UNIT/0.01 ML (CHARGE PER UNIT) SC SCH (06:00)
[2016-08-16] MEDS: inSUlin ASPART (NovoLOG) 1 UNIT/0.01 ML (CHARGE PER UNIT) SC SCH ×2 (06:03→12:36)
[2016-08-16] MEDS: CATHETER FLUSH 10 ML SYR IV SCH ×2 (06:09→15:50)
[2016-08-16] MEDS: NITROGLYCERIN 2% OINT 1 GM UNIT DOSE PACKET TOP SCH (06:09)
[2016-08-16 06:29] LABS: CHOLESTEROL 240 MG/DL (< 200); DIRECT LDL 176 MG/DL (1-129); TRIGLYCERIDES 207 MG/DL (<150); VLDL CHOLESTEROL 41 MG/DL (5-40)
--- NOTE | 2016-08-16 08:36 | History & Physical-Hospitalist ---
HPI History of Present Illness: Date Seen 08/16/16 Attending Physician Heydi Fish DO PCP Elli Almonte MD Referring Physician Date of Admission Aug 15, 2016 at 20:37 Home Medications & Allergies Home Medications Reviewed patient Home Medication Reconciliation Form Allergies Allergies Coded Allergies Cephalexin Monohydrate (Unverified Allergy, Unknown, RASH, 08/15/16) benazepril HCl (Unverified Allergy, Unknown, COUGH, 08/15/16) hydrochlorothiazide (Unverified Allergy, Unknown, ITCHING, 08/15/16) irbesartan (Unverified Allergy, Unknown, RASH, 08/15/16) pantoprazole sodium (Unverified Allergy, Unknown, N/V, 08/15/16) sulfamethoxazole (Unverified Allergy, Unknown, RASH, 08/15/16) trimethoprim (Unverified Allergy, Unknown, RASH, 08/15/16) Past Akavhjo-Gfgjxo-Fynnfq Hx Patient Social History Alcohol Use: Denies Use Recreational Drug Use: No Smoking Status: Never a Smoker Physical Abuse Screen: No Sexual Abuse: No Recent Foreign Travel: No Contact w/other who traveled: No Recent Hopitalizations: No Recent Infectious Disease Expo: No Immunizations Up To Date Date of Pneumonia Vaccine: Nov 18, 2009 Date of Influenza Vaccine: Oct 20, 2011 Seasonal Allergies Seasonal Allergies: No Surgeries HX Surgeries: Yes Surgeries: Appendectomy, Hysterectomy Respiratory Hx Respiratory Disorders: Yes Cardiovascular Hx Cardiovascular Disorders: Yes Cardiac Disorders: High Cholesterol, Hypertension Neurological Hx Neurological Disorders: Yes (SCIATICA, FIBROMYALGIA) Reproductive System Hx Reproductive Disorders: No Genitourinary Hx Genitourinary Disorders: No Gastrointestinal Hx Gastrointestinal Disorders: Yes Gastrointestinal Disorders: Gastroesophageal Reflux Musculoskeletal Hx Musculoskeletal Disorders: Yes (ARTHITIS) Musculoskeletal Disorders: Arthritis Endocrine Hx Endocrine Disorders: Yes HEENT HX ENT Disorders: No Psychosocial Behavioral Health Disorders: Depression Blood Transfusions Hx Blood Disorders: No Reviewed Nursing Assessment Reviewed/Agree w Nursing PMH: Yes Physical Exam Physical Exam Vital Signs Vital Sign - Last 12Hours Capillary Refill : Less Than 3 Seconds Results Results/Procedures Lab Laboratory Tests 08/15/16 17:20 Assessment/Plan Admission Diagnosis 1. Chest and jaw discomfort with shortness of breath consistent with angina pectoris. Dr. Hernandez consulted and will determine direction further workup. 2. Type II diabetes mellitus insulin requiring hold metformin continuing other medications. 3. Past history of statin intolerance to multiple statins tested secondary to complaints of myopathy with lower extremity weakness with normal CPK levels. 4. Hypertension 5. Lower extremity symptoms consistent with acquired spinal stenosis Clinical Quality Measures AMI/AHF: ASA po Prior to arrival: No DVT/VTE Risk/Contraindication: Risk Factor Score Per Nursin RFS Level Per Nursing on Admit: 3=High ELLI ALMONTE MD Aug 16, 2016 08:36
[2016-08-16] MEDS ORDERED: GLIMEPIRIDE 2 MG (AMARYL) TAB PO NR (08:50)
[2016-08-16] MEDS ORDERED: LOSARTAN 50 MG (COZAAR) TAB PO SCH (09:00)
[2016-08-16] MEDS ORDERED: ASPIRIN E.C. 325 MG (ECOTRIN) TABLET PO SCH (09:00)
[2016-08-16] MEDS ORDERED: FAMOTIDINE 20 MG (PEPCID) TABLET PO SCH (09:00)
[2016-08-16] MEDS ORDERED: ATENOLOL 25 MG (TENORMIN) TAB PO SCH (09:00)
--- OUTSIDE RECORDS SUMMARY | 2016-08-16 09:23 | XMS REPORT | Continuity of Care Document ---
Author Author [facility] Organization [facility] Address Unknown Phone Unavailable Allergies Active Description Code Type Severity Reaction Onset Reported/Identified Relationship to Patient Clinical Status Yes benazepril HCl [id number] Drug Allergy Unknown COUGH 05/15/2012 Yes Cephalexin Monohydrate [id number] Drug Allergy Unknown RASH 05/15/2012 Yes hydrochlorothiazide [id number] Drug Allergy Unknown ITCHING 05/15/2012 Yes irbesartan [id number] Drug Allergy Unknown RASH 05/15/2012 Yes pantoprazole sodium [id number] Drug Allergy Unknown N/V 05/15/2012 Yes sulfamethoxazole [id number] Drug Allergy Unknown RASH 05/15/2012 Yes trimethoprim [id number] Drug Allergy Unknown RASH 05/15/2012 Medications Problems [...] COUGH 07/06/2016 IZABELLA MENSAH APRN Ot Z79.82 COMMERCIAL LITIGATION ATTORNEY (CURRENT) USE OF ASPIRIN 07/06/2016 IZABELLA MENSAH APRN Ot Z79.899 OTHER JAIL (CURRENT) DRUG THERAPY 07/09/2016 IZABELLA MENSAH APRN Ot E11.9 TYPE 2 DIABETES MELLITUS WITHOUT COMPLIC 07/09/2016 IZABELLA MENSAH APRN Ot J45.909 UNSPECIFIED ASTHMA, UNCOMPLICATED 07/09/2016 IZABELLA MENSAH APRN Ot R05 COUGH 07/09/2016 IZABELLA MENSAH APRN Ot Z79.82 COMMERCIAL LITIGATION ATTORNEY (CURRENT) USE OF ASPIRIN 07/09/2016 IZABELLA MENSAH APRN Ot Z79.899 OTHER COMMERCIAL LITIGATION ATTORNEY (CURRENT) DRUG THERAPY 07/12/2016 IZABELLA MENSAH APRN Ot E11.9 TYPE 2 DIABETES MELLITUS WITHOUT COMPLIC 07/12/2016 IZABELLA MENSAH APRN Ot J45.909 UNSPECIFIED ASTHMA, UNCOMPLICATED 07/12/2016 IZABELLA MENSAH APRN Ot R05 COUGH 07/12/2016 IZABELLA MENSAH APRN Ot Z79.82 JAIL (CURRENT) USE OF ASPIRIN 07/12/2016 IZABELLA MENSAH APRN Ot Z79.899 OTHER JAIL (CURRENT) DRUG THERAPY Procedures Results Test Result [...] Status Pt. Type Provider Facility Loc./Unit Complaint [id number] 07/06/2016 12:24:00 2016 14:10:00 DIS Emergency IZABELLA MENSAH APRN [facility] ER SOA,COUGH [id number] 05/24/2016 10:44:00 2016 11:13:00 DIS Outpatient ELLI ALMONTE MD [facility] REHAB PERIPHERAL NEUROPATHY;DECONDITIONING; FALLS [id number] 12/09/2014 10:32:00 2014 23:59:59 CLS Outpatient ELLI ALMONTE MD [facility] RAD [id number] 08/20/2013 12:56:00 2013 14:41:00 DIS Outpatient ADONIS MAY [facility] REHAB [id number] 05/22/2013 20:30:00 2013 21:55:00 DIS Emergency IZABELLA MENSAH APRN [facility] ER [id number] 05/14/2013 13:29:00 2013 23:59:59 CLS Outpatient TROY OSBORN DO [facility] RAD [id number] 08/26/2012 11:15:00 2012 11:22:00 DIS Outpatient ELLI ALMONTE MD [facility] REHAB [id number] 11/12/2014 15:26:00 Document Registration [id number] 05/19/2012 08:09:00 Document Registration [id number] 05/15/2012 13:59:00 Document Registration [id number] 06/28/2011 13:49:00 Document Registration [id number] 05/18/2010 10:49:00 Document Registration
[2016-08-16] MEDS ORDERED: VIT1CAPS14 PO (09:30)
[2016-08-16] MEDS ORDERED: FEXO180T84 PO (09:30)
[2016-08-16] MEDS ORDERED: LEVO1CAP11 PO (09:30)
[2016-08-16] MEDS ORDERED: TR1C15 TOP (09:30)
--- NOTE | 2016-08-16 09:56 | Consultation-Cardiology ---
HPI-Cardiology Cardiology Consultation Date of Consultation 08/16/16 Date of Admission Time Seen by Provider: 08:40 Indication: Chest pain HPI Patient is an 81 y/o female with history of HTN, HLP, DM. Has history of statin intolerance. Presented to the ER yesterday with complaints of chest pain while moving a bicycle. Reports bilat chest pain with radiation to bilateral jaw. Associated dyspnea and diaphoresis. Denies any nausea or vomiting. States episode lasted approx 20min. Denies any active CP at this time. C/o cough with increased shortness of breath over the last week. No other complaints at this time. Mrs. Hughes is 81 years old lady with history of hypertension, hyperlipidemia and diabetes mellitus. Intolerant to statin. Presented to the emergency room with chest pain. Atypical in presentation, by my evaluation in the morning she was feeling better. I proceeded with stress test which showed no ischemia or infarction. Home Medications & Allergies Allergies: Coded Allergies: Cephalexin Monohydrate (Unverified Allergy, Unknown, RASH, 08/15/16) benazepril HCl (Unverified Allergy, Unknown, COUGH, 08/15/16) hydrochlorothiazide (Unverified Allergy, Unknown, ITCHING, 08/15/16) irbesartan (Unverified Allergy, Unknown, RASH, 08/15/16) pantoprazole sodium (Unverified Allergy, Unknown, N/V, 08/15/16) sulfamethoxazole (Unverified Allergy, Unknown, RASH, 08/15/16) trimethoprim (Unverified Allergy, Unknown, RASH, 08/15/16) Home Medication List Reviewed: Yes DPY-Vzgjnx-Ujpfhj Hx Patient Social History Alcohol Use: Denies Use Recreational Drug Use: No Smoking Status: Never a Smoker Recent Foreign Travel: No Recent Infectious Disease Expo: No Recent Hopitalizations: No Physical Abuse Screen: No Sexual Abuse: No Immunizations Up To Date Date of Pneumonia Vaccine: Nov 18, 2009 Date of Influenza Vaccine: Oct 20, 2011 Past Medical History HTN, HLP, DM Family Medical History Significant Family History: No Pertinent Family Hx Constitutional: No chills, No diaphoresis, No dizziness, No fever, No malaise, No weakness EENTM: No hearing loss, No nose pain, No throat pain, No vision loss Respiratory: No cough, dyspnea on exertion Cardiovascular: see HPI, chest pain, No edema, No Hx of Intervention, No palpitations Gastrointestinal: No abdominal pain, No constipation Genitourinary: No dysuria, No frequency Musculoskeletal: No back pain, No neck pain Skin: No lesions Psychiatric/Neurological: Denies Depressed, Denies Emotional Problems Reviewed Test Results Reviewed Test Results Lab Laboratory Tests 08/15/16 17:20: White Blood Count 7.6, Red Blood Count 4.67, Hemoglobin 12.7, Hematocrit 37, Mean Corpuscular Volume 79L, Mean Corpuscular Hemoglobin 27, Mean Corpuscular Hemoglobin Concent 34, Red Cell Distribution Width 13.9, Platelet Count 270, Mean Platelet Volume 9.9, Neutrophils (%) (Auto) 65, Lymphocytes (%) (Auto) 22, Monocytes (%) (Auto) 11, Eosinophils (%) (Auto) 2, Basophils (%) (Auto) 1, Neutrophils # (Auto) 5.0, Lymphocytes # (Auto) 1.7, Monocytes # (Auto) 0.9, Eosinophils # (Auto) 0.1, Basophils # (Auto) 0.0, Prothrombin Time 12.2, INR Comment 0.9, Activated Partial Thromboplast Time 24, D-Dimer 0.82H, Sodium Level 141, Potassium Level 3.4L, Chloride Level 105, Carbon Dioxide Level 26, Anion Gap 10, Blood Urea Nitrogen 13, Creatinine 0.82, Estimat Glomerular Filtration Rate > 60, BUN/Creatinine Ratio 16, Glucose Level 205H, Calcium Level 9.1, Magnesium Level 1.7L, Total Bilirubin 0.4, Aspartate Amino Transf ( AST/SGOT) 19, Alanine Aminotransferase (ALT/SGPT) 21, Alkaline Phosphatase 88, Myoglobin 31.9, Troponin I < 0.30, B-Type Natriuretic Peptide 106.0H, Total Protein 6.7, Albumin 3.9, Amylase Level 41, Lipase 41 08/15/16 23:44: Troponin I < 0.30 08/16/16 05:27: Glucometer 168H 08/16/16 05:31: Triglycerides Level 207H, Cholesterol Level 240H, LDL Cholesterol Direct 176H, VLDL Cholesterol 41H, HDL Cholesterol 30L ECG Impression ECG Initial ECG Rhythm: Normal Sinus Physical Exam Vital Signs Vital Sign - Last 12Hours Capillary Refill : Less Than 3 Seconds General Appearance: No Apparent Distress, WD/WN HEENT: PERRL/EOMI, TMs Normal, Normal ENT Inspection, Pharynx Normal Neck: Non Tender, Supple Respiratory: Chest Non Tender, Lungs Clear, Normal Breath Sounds, No Accessory Muscle Use Cardiovascular: Regular Rate, Rhythm, No Edema, No Gallop, No JVD, No Murmur, Normal Peripheral Pulses Gastrointestinal: No Pulsatile Mass, Non Tender, Soft Rectal: Deferred Back: No CVA Tenderness Neurologic/Psychiatric: Alert, Oriented x3, half backer II-XII Norm as Tested Skin: Normal Color, Warm/Dry A/P-Cardiology Admission Diagnosis CP HTN HLP DM Assessment/Plan CP, nonspecific etiology, atypical in presentation-cardiac enzymes are within normal limits, EKG reveals sinus rhythm with no acute ST changes. Patient has multiple risk factors for underlying coronary artery disease. We will further evaluate with Lexiscan stress test later this afternoon. 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 Continue to monitor. Diabetes mellitus-managed by primary care physician History of chronic back pain, stenosis Thank you for allowing us to participate in the management of Ms. Hughes. This is Alicia Villalba PA-C as a scribe for Dr. Lopez. This is Dr. Lopez, I have seen and evaluated the patient with Alicia, I agree with the current scribe, I interviewed the patient performed physical examination, modified the notes slightly and used Italic Font. In summary she is an 81 years old lady with history of hypertension, hyperlipidemia and diabetes mellitus, she has been intolerance to statin in the past. Admitted with chest pain, described it as jaw pain. On examination lungs were clear to auscultation bilaterally, heart is regular rate and rhythm. 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 I will arrange for follow-up as an outpatient. Clinical Quality Measures AMI/AHF: ASA po Prior to arrival: No DVT/VTE Risk/Contraindication: Risk Factor Score Per Nursin RFS Level Per Nursing on Admit: 3=High ALICIA SMITH Aug 16, 2016 9:56 am BERTRAND LOPEZ MD Aug 16, 2016 3:41 pm
[2016-08-16] MEDS ORDERED: CATHETER FLUSH 10 ML SYR IV PRN (11:00)
[2016-08-16] MEDS ORDERED: REGADENOSON 0.4 MG/5 ML SYR (LEXISCAN) IV ONE ×2 (11:50→12:45)
[2016-08-16] MEDS ORDERED: ATOR10TA PO (15:38)
[2016-08-16] MEDS ORDERED: inSUlin DETERMIR 1 UNIT/0.01 ML (LEVEMIR) CHARGE PER UNIT SQ SCH (21:00)
[2016-08-16] MEDS ORDERED: amLODIPine 5 MG (NORVASC) TAB PO SCH (21:00)
[2016-08-17] MEDS ORDERED: GLIMEPIRIDE 2 MG (AMARYL) TAB PO SCH (06:30)
--- NOTE | 2016-08-17 14:21 | STRESS TEST ---
PROCEDURE PHYSICIAN: BERTRAND KIM DATE OF PROCEDURE: 08/16/2016 LEXISCAN MYOVIEW STRESS TEST REPORT: REFERRING PHYSICIAN: Dr. Zhong BASELINE HEART RATE: 67 BASELINE BLOOD PRESSURE: 173/68 BASELINE EKG: Sinus rhythm with no ischemic changes. IN SUMMARY: The patient was injected with 10.27 mCi of technetium 99 Myoview and the resting images were obtained. Then the patient received 0.4 mg of Lexiscan followed by 31.2 mCi of technetium 99 Myoview. Throughout the test, there were no EKG changes. The resting and stress images were reviewed and compared in the short axis, horizontal long axis, and vertical long axis views. Review of the images showed breast attenuation with mild decreased uptake at the anteroapical segment, with subtle reversibility. No significant ischemia or infarction was noted. SSS is 4, SDS 1, TID value 0.98. On the gated images, the left ventricle is normal in size with normal contractility. Calculated ejection fraction 71%. IN CONCLUSION: 1. The patient tolerated Lexiscan well. 2. Baseline left bundle branch block, persisted throughout test. 3. Breast attenuation with typical female pattern. No significant ischemia or infarction on SPECT images. 4. Normal left ventricular size with normal contractility. Calculated ejection fraction 71%. Job ID: [id number] Dictated Date: 08/17/2016 10:29:32 Machine Cloth Examiner Date: 08/17/2016 14:17:43 / pinky
== END 2016-08-16 18:15 | disposition home or self-care (01) ==
LOC: EDUNIT# 17:07 → ER 17:09 → 4TH 20:37
PROVIDERS: ADMIT Internal Medicine; ATTEND Internal Medicine
DX: R07.9 Chest pain, unspecified (principal); I44.7 Left bundle-branch block, unspecified; I70.0 Atherosclerosis of aorta; I10 Essential (primary) hypertension; E11.9 Type 2 diabetes mellitus without complications; E78.5 Hyperlipidemia, unspecified; M54.5 Low back pain; R91.1 Solitary pulmonary nodule; M47.814 Spondylosis without myelopathy or radiculopathy, thoracic region; Z79.82 Long term (current) use of aspirin; Z79.899 Other long term (current) drug therapy; Z79.84 Long term (current) use of oral hypoglycemic drugs
CPT/HCPCS: 36415; 71010; 71275; 78452; 80053; 80061; 82150; 82962; 83690; 83735; 83874; 83880; 84484; 85025; 85379; 85610; 85730; 93005; 93017; 93041; 96360; 96372; G0378

== ENCOUNTER → 2018-12-16 | Outpatient (CLI) | payer MEDICARE ==
[~2018-12-16] MED LIST changes: +ATOR10TA PO; -BENZ-13 PO; +BENZ100C18 PO; +FEXO180T84 PO; +INSU100I29 SC; +LEVO1CAP11 PO; +SAXA5TAB PO; +TR1C15 TOP; +VIT1CAPS14 PO
== END ==
LOC: CARD 10:50
PROVIDERS: ATTEND Physician Assistant
DX: I07.1 Rheumatic tricuspid insufficiency (principal); I65.29 Occlusion and stenosis of unspecified carotid artery; E11.9 Type 2 diabetes mellitus without complications; K92.9 Disease of digestive system, unspecified; I10 Essential (primary) hypertension
CPT/HCPCS: 93306

== ENCOUNTER → 2019-06-19 | Outpatient (CLI) | payer MEDICARE ==
[~2019-06-19] MED LIST changes: +GADOBUTROL 15 MMOL/15 ML (GADAVIST) VIAL IV ONE
--- NOTE | 2019-06-19 15:41 | Diagnostic Imaging Report ---
PROCEDURE: MR angiography of the brain without the use of contrast. TECHNIQUE: 3D [id number] non contrast enhanced MR angiography of the head was performed. A source data was reformatted into rotating MIP projections. INDICATION: Vertigo with double vision. TIA. FINDINGS: There is rather marked atherosclerotic disease with multi segmental stenosis of the left middle cerebral artery along the M1 segment and extending into the first bifurcation. Stenosis is estimated 70-80%. The basilar artery is widely patent and supplied by both vertebral arteries. The cerebellar arteries are patent. No evidence of aneurysm. IMPRESSION: There is significant stenosis of the left middle cerebral artery involving the M1 segment and extending into the first bifurcation. Mild narrowing of the right middle cerebral artery. Posterior cerebral arteries are widely patent as are the anterior cerebral arteries. Dictated by: Dictated on workstation # [id number]
--- NOTE | 2019-06-19 15:46 | Diagnostic Imaging Report ---
PROCEDURE: MR angiography neck with and without contrast. TECHNIQUE: Pre and post contrast-enhanced MR angiography of the neck was performed. Source data was reformatted into rotating MIP projections. INDICATION: Vertigo. FINDINGS: Good enhancement is demonstrated of the carotid and vertebral arteries. The right vertebral artery is dominant. Both vertebral arteries supply the basilar artery. There is hemodynamic stenosis noted within the left internal and external carotid arteries at the bifurcation estimated 70%. The right carotid artery shows approximately 50% stenosis of the internal carotid artery with 70% stenosis of the proximal external carotid artery. The right vertebral artery is dominant and widely patent to the basilar artery. Left vertebral artery does show narrowing intracranially in a rather beaded appearance. IMPRESSION: 1. Diffuse atherosclerotic changes. There is hemodynamic stenosis at the origin of the left internal and external carotid artery estimated 70% to 80%. 2. The right external carotid artery shows stenosis estimated 70-80%. The right internal carotid artery shows stenosis estimated at 50%. 3. There is beaded high-grade stenosis of the atherosclerotic change within the left vertebral artery along the intracranial portion. The right vertebral artery is dominant and widely patent to the basilar artery. Dictated by: Dictated on workstation # [id number]
== END ==
LOC: RAD 13:09
PROVIDERS: ATTEND Internal Medicine
DX: G45.9 Transient cerebral ischemic attack, unspecified (principal); R47.01 Aphasia; H54.7 Unspecified visual loss; E11.9 Type 2 diabetes mellitus without complications; I65.23 Occlusion and stenosis of bilateral carotid arteries; I67.2 Cerebral atherosclerosis
CPT/HCPCS: 70544; 70549

== ENCOUNTER 2020-01-15 11:17 | Emergency (ER) | payer MEDICARE ==
[~2020-01-15] VITALS: Ht 160 cm; Wt 67.5 kg
[~2020-01-15 11:17] MED LIST changes: -GADOBUTROL 15 MMOL/15 ML (GADAVIST) VIAL IV ONE
--- NOTE | 2020-01-15 11:51 | ED Back Pain ---
General Chief Complaint: Trauma-Non Activation Stated Complaint: LOWER BACK PAIN Source of Information: Patient Exam Limitations: No Limitations History of Present Illness Date Seen by Provider: Jan 15, 2020 Time Seen by Provider: 11:49 Initial Comments To ER by private vehicle and ambulatory to room 3 with reports of midline low back pain after she fell while trying to get in her chair this morning. She landed on her buttock and did not hit her head. She was able to walk after this event. Location: Lumbar Spine, Paraspinous Muscles, Other (Sacrum) Timing/Duration: 1 Hour Severity: Moderate Pain/Injury Location: Back Method of Injury: Fall Modifying Factors: Worse With Movement Associated Symptoms: lower back pain Allergies and Home Medications Allergies Coded Allergies: Cephalexin Monohydrate (Unverified Allergy, Unknown, RASH, 08/15/16) benazepril HCl (Unverified Allergy, Unknown, COUGH, 08/15/16) hydrochlorothiazide (Unverified Allergy, Unknown, ITCHING, 08/15/16) irbesartan (Unverified Allergy, Unknown, RASH, 08/15/16) pantoprazole sodium (Unverified Allergy, Unknown, N/V, 08/15/16) sulfamethoxazole (Unverified Allergy, Unknown, RASH, 08/15/16) trimethoprim (Unverified Allergy, Unknown, RASH, 08/15/16) Home Medications Amlodipine Besylate 5 Mg Tablet, 5 MG PO HS, (Reported) LAST FILLED 01-13-16 Atenolol 25 Mg Tablet, 25 MG PO DAILY, (Reported) Escitalopram Oxalate 10 Mg Tablet, 10 MG PO DAILY, (Reported) Fexofenadine HCl 180 Mg Tablet, 180 MG PO HS, (Reported) Furosemide 40 Mg Tablet, 40 MG PO [id number], (Reported) Glimepiride 1 Mg Tablet, 1 MG PO DAILY, (Reported) Insulin Detemir 100 Unit/1 Ml Insuln.pen, 28 UNITS SC HS, (Reported) Lactobacillus Rhamnosus Gg 1 Each Capsule, 1 TAB PO DAILY, (Reported) Levomefolate/B6/B12/Algal Oil 1 Each Capsule, 1 CAP PO DAILY, (Reported) Levothyroxine Sodium 50 Mcg Tablet, 50 MCG PO DAILY, (Reported) Loperamide Hcl 2 Mg Tablet, PO UD PRN for DIARRHEA, (Reported) Losartan Potassium 50 Mg Tablet, 50 MG PO DAILY, (Reported) Rabeprazole Sodium 20 Mg Tablet.dr, 20 MG PO DAILY, (Reported) Saxagliptin HCl 5 Mg Tablet, 5 MG PO 1800, (Reported) Triamcinolone Acet 15 Gm Cr, TOP BID PRN for RASH, (Reported) Vit C/Arnulfo AC/Lut/Copper/Znox 1 Each Capsule, 1 CAP PO BID, (Reported) Patient Home Medication List Home Medication List Reviewed: Yes Review of Systems Constitutional: see HPI EENTM: see HPI Respiratory: no symptoms reported Cardiovascular: no symptoms reported Genitourinary: no symptoms reported Musculoskeletal: see HPI, back pain Skin: no symptoms reported Psychiatric/Neurological: No Symptoms Reported Past Qrnpiou-Czdtty-Etjanx Hx Patient Social History Recent Foreign Travel: No Contact w/Someone Who Travel: No Recent Hopitalizations: No Immunizations Up To Date Date of Pneumonia Vaccine: Nov 18, 2009 Date of Influenza Vaccine: Oct 20, 2011 Seasonal Allergies Seasonal Allergies: No Past Medical History Surgeries: Yes Appendectomy, Hysterectomy Respiratory: Yes Sleep Apnea Cardiac: Yes High Cholesterol, Hypertension Neurological: Yes (SCIATICA, FIBROMYALGIA) Reproductive Disorders: No Genitourinary: No Gastrointestinal: Yes Gastroesophageal Reflux Musculoskeletal: Yes Arthritis Endocrine: Yes HEENT: No Cancer: No Psychosocial: Yes Depression Integumentary: No Blood Disorders: No Family Medical History No Pertinent Family Hx Physical Exam Vital Signs Vital Signs - First Documented 01/15/20 11:49 Temp 36.8 Pulse 82 Resp 20 B/P (MAP) 181/68 (105) Pulse Ox 99 O2 Delivery Room Air Capillary Refill : Height, Weight, BMI Height: 5'2.00" Weight: 190lbs. 0.0oz. 86.426160mt; 34.8 BMI Method:Stated General Appearance: No Apparent Distress, WD/WN Neck: Full Range of Motion, Normal Inspection Respiratory: No Accessory Muscle Use, No Respiratory Distress Gastrointestinal: Normal Bowel Sounds, Non Tender, Soft Back: Normal Inspection, Other (Tenderness over the sacroiliac joint) Extremity: Normal Capillary Refill, Normal Inspection Neurologic/Psychiatric: Alert, Oriented x3 Skin: Normal Color, Warm/Dry Progress/Results/Core Measures Results/Orders Lab Results Laboratory Tests Test 01/15/20 13:05 Range/Units Glucometer 67 L 70-110 MG/DL My Orders Orders - IZABELLA MENSAH APRN Ct Lumbar Spine Wo (01/15/20 11:44) Pelvis (01/15/20 11:44) Vital Signs/I&O 01/15/20 11:49 Temp 36.8 Pulse 82 Resp 20 B/P (MAP) 181/68 (105) Pulse Ox 99 O2 Delivery Room Air Departure Impression Primary Impression: Fall Additional Impressions: Contusion Compression fracture of L2 Disposition: 01 HOME, SELF-CARE Condition: Stable Departure-Patient Inst. Decision time for Depature: 13:12 Referrals: ELLI ALMONTE MD (PCP/Family) Primary Care Physician Patient Instructions: Vertebral Compression Fracture (DC) Add. Discharge Instructions: 1. Pain medication as directed 2. Follow-up with Dr. Almonte next week 3. The pain medication can be constipating so if you do not already, then you should start taking a stool softener [id number] such as Colace (docusate sodium) All discharge instructions reviewed with patient and/or family. Voiced understanding. IZABELLA MENSAH APRN Jan 15, 2020 11:51
--- NOTE | 2020-01-15 12:30 | NUR ---
REPEAT TROP SENT TO LAB
--- NOTE | 2020-01-15 12:43 | Diagnostic Imaging Report ---
EXAMINATION: CT lumbar spine without contrast. TECHNIQUE: Multiple contiguous axial images were obtained through the lumbar spine without the use of intravenous contrast. Sagittal and coronal reformations were then performed. All CT scans use one or more of the following dose optimizing techniques: automated exposure control, MA and/or KvP adjustment based on a patient size and exam type, or iterative reconstruction. HISTORY: Fall COMPARISON: None available. FINDINGS: The alignment of the lumbar spine is normal. There is an acute appearing mild compression fracture of L2. No retropulsion is seen. Remaining vertebral body heights are normal. There is moderate facet arthropathy most pronounced at L4-L5 and L3-L4. There is disc height loss at L3-L4 and L5-S1. There is no spinal canal stenosis. Limited views of the abdomen and pelvis show no soft tissue abnormality. The aorta is normal. IMPRESSION: 1. Acute appearing mild compression fracture of L2 without retropulsion. Dictated by: Dictated on workstation # [id number]
--- NOTE | 2020-01-15 12:43 | Diagnostic Imaging Report ---
INDICATION: Pain, status post injury COMPARISON: None FINDINGS: A single AP view of the pelvis was performed. There is no radiographic evidence of acute fracture or dislocation. Pubic symphysis is within normal limits. SI joints are symmetric. Proximal femurs are intact, bilaterally. The femoro-acetabular joint spaces appear maintained on this single frontal view. Remainder of the bony pelvis is intact as well. No unexpected radiopaque foreign bodies are seen. Included small bowel loops are nondistended. Impression: 1. No radiographic evidence of acute fracture or dislocation of the bony pelvis. Dictated by: Dictated on workstation # [id number]
--- NOTE | 2020-01-15 13:05 | NUR ---
PTS BLOOD SUGAR 67 ON FINGER STICK. PT GIVEN JUICE, CRACKERS, AND SANDWHICH TRAY
[2020-01-15] MEDS ORDERED: TRAM-42 PO (13:13)
[2020-01-15] MEDS ORDERED: KETOROLAC 30 MG/ML VIAL IM ONE (13:15)
[2020-01-15 13:50] VITALS: BP 173/91
== END 2020-01-15 13:50 | disposition home or self-care (01) ==
LOC: EDUNIT# 11:17 → ER 11:18
DX: S32.020A Wedge compression fracture of second lumbar vertebra, initial encounter for closed fracture (principal); F32.9 Major depressive disorder, single episode, unspecified; I10 Essential (primary) hypertension; Z88.1 Allergy status to other antibiotic agents; Z88.2 Allergy status to sulfonamides; Z88.8 Allergy status to other drugs, medicaments and biological substances; W07.XXXA Fall from chair, initial encounter
CPT/HCPCS: 72131; 72170; 82962

== ENCOUNTER 2020-01-19 14:48 | Inpatient (IN) | payer MEDICARE ==
[~2020-01-19] VITALS: Ht 160 cm; Wt 67.8 kg
[~2020-01-19 14:48] MED LIST changes: +TRAM-42 PO
--- NOTE | 2020-01-19 15:01 | ED General ---
General Stated Complaint: UTI Source of Information: Patient Exam Limitations: No Limitations History of Present Illness Date Seen by Provider: Jan 19, 2020 Time Seen by Provider: 15:00 Initial Comments To ER with reports of concern for urinary tract infection. She was seen here recently for a fall while carrying out a box of cans. She landed on her buttock and complained of some low back pain. CT imaging revealed a compression deformity of L2 without retropulsion. She was sent home with Ultram which she has taken for, each time resulting in nausea. She has had some urinary incontinence and progressive general weakness with recurrent falls since discharge. Timing/Duration: 3-4 Days Severity: Moderate Associated Systoms: Nausea/Vomiting, Weakness Allergies and Home Medications Allergies Coded Allergies: Cephalexin Monohydrate (Unverified Allergy, Unknown, RASH, 08/15/16) benazepril HCl (Unverified Allergy, Unknown, COUGH, 08/15/16) hydrochlorothiazide (Unverified Allergy, Unknown, ITCHING, 08/15/16) irbesartan (Unverified Allergy, Unknown, RASH, 08/15/16) pantoprazole sodium (Unverified Allergy, Unknown, N/V, 08/15/16) sulfamethoxazole (Unverified Allergy, Unknown, RASH, 08/15/16) trimethoprim (Unverified Allergy, Unknown, RASH, 08/15/16) Home Medications Amlodipine Besylate 5 Mg Tablet, 5 MG PO HS, (Reported) LAST FILLED 01-13-16 Atenolol 25 Mg Tablet, 25 MG PO DAILY, (Reported) Escitalopram Oxalate 10 Mg Tablet, 10 MG PO DAILY, (Reported) Fexofenadine HCl 180 Mg Tablet, 180 MG PO HS, (Reported) Furosemide 40 Mg Tablet, 40 MG PO [id number], (Reported) Glimepiride 1 Mg Tablet, 1 MG PO DAILY, (Reported) Insulin Detemir 100 Unit/1 Ml Insuln.pen, 28 UNITS SC HS, (Reported) Lactobacillus Rhamnosus Gg 1 Each Capsule, 1 TAB PO DAILY, (Reported) Levomefolate/B6/B12/Algal Oil 1 Each Capsule, 1 CAP PO DAILY, (Reported) Levothyroxine Sodium 50 Mcg Tablet, 50 MCG PO DAILY, (Reported) Loperamide Hcl 2 Mg Tablet, PO UD PRN for DIARRHEA, (Reported) Losartan Potassium 50 Mg Tablet, 50 MG PO DAILY, (Reported) Rabeprazole Sodium 20 Mg Tablet.dr, 20 MG PO DAILY, (Reported) Saxagliptin HCl 5 Mg Tablet, 5 MG PO 1800, (Reported) Tramadol HCl 50 Mg Tablet, 50 MG PO Q6H PRN for PAIN-MODERATE (5-7) Prescribed by: IZABELLA MENSAH on 01/15/20 1314 Triamcinolone Acet 15 Gm Cr, TOP BID PRN for RASH, (Reported) Vit C/Arnulfo AC/Lut/Copper/Znox 1 Each Capsule, 1 CAP PO BID, (Reported) Patient Home Medication List Home Medication List Reviewed: Yes Review of Systems Review of Systems Constitutional: see HPI, malaise, weakness EENTM: see HPI Respiratory: no symptoms reported; No cough Cardiovascular: no symptoms reported Genitourinary: no symptoms reported Musculoskeletal: no symptoms reported Skin: no symptoms reported Psychiatric/Neurological: No Symptoms Reported Hematologic/Lymphatic: No Symptoms Reported Immunological/Allergic: no symptoms reported Past Cpvugkz-Ofzfqi-Jsjtat Hx Patient Social History Recent Hopitalizations: No Immunizations Up To Date Tetanus Booster (TDap): Unknown PED Vaccines UTD: Yes Date of Pneumonia Vaccine: Nov 18, 2009 Date of Influenza Vaccine: Oct 20, 2011 Seasonal Allergies Seasonal Allergies: No Past Medical History Surgeries: Yes Appendectomy, Hysterectomy, Orthopedic Respiratory: Yes Sleep Apnea Cardiac: Yes High Cholesterol, Hypertension Neurological: Yes (SCIATICA, FIBROMYALGIA) Reproductive Disorders: No Genitourinary: No Gastrointestinal: Yes Gastroesophageal Reflux Musculoskeletal: Yes Arthritis Endocrine: Yes HEENT: No Cancer: No Psychosocial: Yes Depression Integumentary: No Blood Disorders: No Family Medical History No Pertinent Family Hx Physical Exam Vital Signs Vital Signs - First Documented 01/19/20 15:00 Temp 36.1 Pulse 86 Resp 20 B/P (MAP) 136/85 (102) Pulse Ox 99 O2 Delivery Room Air Capillary Refill : Height, Weight, BMI Height: 5'2.00" Weight: 190lbs. 0.0oz. 86.350411ib; 26.00 BMI Method:Stated General Appearance: No Apparent Distress, WD/WN Eyes: Bilateral Eye Normal Inspection, Bilateral Eye PERRL, Bilateral Eye EOMI Respiratory: Normal Breath Sounds, No Accessory Muscle Use, No Respiratory Distress Cardiovascular: Regular Rate, Rhythm, Normal Peripheral Pulses Gastrointestinal: Normal Bowel Sounds, Non Tender, Soft Extremity: Normal Capillary Refill, Normal Inspection Neurologic/Psychiatric: Alert, Oriented x3 Skin: Normal Color, Warm/Dry Progress/Results/Core Measures Suspected Sepsis SIRS Temperature: Pulse: Respiratory Rate: Laboratory Tests 01/19/20 15:15: White Blood Count 9.9 Blood Pressure / Mean: Laboratory Tests 01/19/20 15:15: Creatinine 0.89, Platelet Count 283, Total Bilirubin 0.7 Results/Orders Lab Results Laboratory Tests Test 01/19/20 15:05 01/19/20 15:15 Range/Units Urine Color YELLOW Urine Clarity TURBID Urine pH 6.0 5-9 Urine Specific [place] 1.025 H 1.016-1.022 Urine Protein 2+ H NEGATIVE Urine Glucose (UA) TRACE H NEGATIVE Urine Ketones TRACE H NEGATIVE Urine Nitrite POSITIVE H NEGATIVE Urine Bilirubin NEGATIVE NEGATIVE Urine Urobilinogen 1.0 < = 1.0 MG/DL Urine Leukocyte Esterase 2+ H NEGATIVE Urine RBC (Auto) TRACE-I NEGATIVE Urine RBC 2-5 H /HPF Urine WBC 25-50 H /HPF Urine Crystals PRESENT H /LPF Urine Amorphous Sediment FEW BEL URATES H /LPF Urine Bacteria LARGE H /HPF Urine Casts NONE /LPF Urine Mucus NEGATIVE /LPF Urine Culture Indicated YES White Blood Count 9.9 4.3-11.0 10^3/uL Red Blood Count 4.82 3.80-5.11 10^6/uL Hemoglobin 13.7 11.5-16.0 g/dL Hematocrit 41 35-52 % Mean Corpuscular Volume 86 80-99 fL Mean Corpuscular Hemoglobin 28 25-34 pg Mean Corpuscular Hemoglobin Concent 33 32-36 g/dL Red Cell Distribution Width 11.9 10.0-14.5 % Platelet Count 283 130-400 10^3/uL Mean Platelet Volume 9.5 9.0-12.2 fL Immature Granulocyte % (Auto) 0 % Neutrophils (%) (Auto) 72 42-75 % Lymphocytes (%) (Auto) 15 12-44 % Monocytes (%) (Auto) 12 0-12 % Eosinophils (%) (Auto) 0 0-10 % Basophils (%) (Auto) 1 0-10 % Neutrophils # (Auto) 7.1 1.8-7.8 10^3/uL Lymphocytes # (Auto) 1.5 1.0-4.0 10^3/uL Monocytes # (Auto) 1.1 H 0.0-1.0 10^3/uL Eosinophils # (Auto) 0.0 0.0-0.3 10^3/uL Basophils # (Auto) 0.1 0.0-0.1 10^3/uL Immature Granulocyte # (Auto) 0.0 0.0-0.1 10^3/uL Sodium Level 138 135-145 MMOL/L Potassium Level 3.8 3.6-5.0 MMOL/L Chloride Level 100 98-107 MMOL/L Carbon Dioxide Level 28 21-32 MMOL/L Anion Gap 10 5-14 MMOL/L Blood Urea Nitrogen 13 7-18 MG/DL Creatinine 0.89 0.60-1.30 MG/DL Estimat Glomerular Filtration Rate 60 BUN/Creatinine Ratio 15 Glucose Level 188 H 70-105 MG/DL Calcium Level 9.3 8.5-10.1 MG/DL Corrected Calcium 9.1 8.5-10.1 MG/DL Total Bilirubin 0.7 0.1-1.0 MG/DL Aspartate Amino Transf (AST/SGOT) 15 5-34 U/L Alanine Aminotransferase (ALT/SGPT) 11 0-55 U/L Alkaline Phosphatase 79 40-136 U/L Total Protein 7.3 6.4-8.2 GM/DL Albumin 4.2 3.2-4.5 GM/DL My Orders Orders - IZABELLA MENSAH APRN Ua Culture If Indicated (01/19/20 14:51) Cbc With Automated Diff (01/19/20 14:51) Comprehensive Metabolic Panel (01/19/20 14:51) Ed Iv/Invasive Line Start (01/19/20 14:51) Ct Head Wo (01/19/20 15:21) Chest 1 View, Ap/Pa Only (01/19/20 15:21) Urine Culture (01/19/20 15:05) Ceftriaxone For Iv Use (Rocephin For I (01/19/20 16:00) Vital Signs/I&O 01/19/20 15:00 Temp 36.1 Pulse 86 Resp 20 B/P (MAP) 136/85 (102) Pulse Ox 99 O2 Delivery Room Air Capillary Refill : Departure Communication (Admissions) Time/Spoke to Admitting Phy: 16:03 Impression Primary Impression: Compression fracture of L2 Additional Impression: Urinary tract infection Disposition: ADMITTED INPATIENT Condition: Stable Admissions Decision to Admit Reason: Admit from ER (General) Decision to Admit/Date: Jan 19, 2020 Time/Decision to Admit Time: 15:57 Departure-Patient Inst. Referrals: ELLI ALMONTE MD (PCP/Family) Primary Care Physician IZABELLA MENSAH APRN Jan 19, 2020 15:01
[2020-01-19 15:22] LABS: BILIRUBIN,URINE NEGATIVE (NEGATIVE); CLARITY,URINE TURBID; COLOR,URINE YELLOW; GLUCOSE, URINE (UA) TRACE (NEGATIVE); KETONES,URINE TRACE (NEGATIVE); LEUKOCYTE ESTERASE ,URINE 2+ (NEGATIVE); NITRITE,URINE POSITIVE (NEGATIVE); PROTEIN,URINE 2+ (NEGATIVE)
[2020-01-19 15:27] LABS: BASOPHILS # (AUTO) 0.1 10^3/uL (0.0-0.1); BASOPHILS % (AUTO) 1 % (0-10); EOSINOPHILS % (AUTO) 0 % (0-10); HEMATOCRIT 41 % (35-52); HEMOGLOBIN 13.7 g/dL (11.5-16.0); LYMPHOCYTES # (AUTO) 1.5 10^3/uL (1.0-4.0); LYMPHOCYTES % (AUTO) 15 % (12-44); MEAN CORPUSCULAR HEMOGLOBIN 28 pg (25-34); MEAN CORPUSCULAR HGB CONC 33 g/dL (32-36); MEAN CORPUSCULAR VOLUME 86 fL (80-99); MEAN PLATELET VOLUME 9.5 fL (9.0-12.2); MONOCYTES # (AUTO) 1.1 10^3/uL (0.0-1.0); MONOCYTES % (AUTO) 12 % (0-12); NEUTROPHILS # (AUTO) 7.1 10^3/uL (1.8-7.8); NEUTROPHILS % (AUTO) 72 % (42-75); PLATELET COUNT 283 10^3/uL (130-400); WHITE BLOOD COUNT 9.9 10^3/uL (4.3-11.0)
[2020-01-19 15:39] LABS: ALBUMIN 4.2 GM/DL (3.2-4.5)
[2020-01-19 15:40] LABS: POTASSIUM 3.8 MMOL/L (3.6-5.0)
[2020-01-19 15:41] LABS: CALCIUM 9.3 MG/DL (8.5-10.1)
[2020-01-19 15:42] LABS: TOTAL PROTEIN 7.3 GM/DL (6.4-8.2)
[2020-01-19 15:44] LABS: BILIRUBIN,TOTAL 0.7 MG/DL (0.1-1.0)
--- NOTE | 2020-01-19 15:45 | Diagnostic Imaging Report ---
PROCEDURE: CT head without contrast. TECHNIQUE: Multiple contiguous axial images were obtained through the brain without the use of intravenous contrast. Auto Exposure Controls were utilized during the CT exam to meet ALARA standards for radiation dose reduction. INDICATION: Weakness. COMPARISON: 04/11/2007. FINDINGS: Noncontrasted CT head shows mild cortical atrophy. There is no intracranial hemorrhage. There is no mass effect. Ventricles are not dilated. No extra-axial fluid collection. Basal cisterns are clear. Mastoid air cells are well aerated and clear. No evidence of calvarial fractures. IMPRESSION: No acute abnormalities compared with previous exam. Dictated by: Dictated on workstation # [id number]
[2020-01-19 15:46] LABS: CREATININE SERUM 0.89 MG/DL (0.60-1.30)
[2020-01-19 15:47] LABS: BACTERIA,URINE LARGE /HPF; WBC,URINE 25-50 /HPF
[2020-01-19 15:48] LABS: AMORPHOUS SEDIMENT,UR FEW AMOR URATES /LPF
--- NOTE | 2020-01-19 15:53 | Diagnostic Imaging Report ---
INDICATION: Recent fall with weakness and urinary urgency. FINDINGS: Portable chest. The lungs are well aerated and clear. The heart is not enlarged. No pulmonary edema or hilar adenopathy. No pneumothorax or pleural effusion. No bony abnormalities. IMPRESSION: Normal portable chest. Dictated by: Dictated on workstation # [id number]
[2020-01-19] MEDS ORDERED: cefTRIAXone FOR IV USE 1,000 MG in WATER (STERILE) FOR INJECTION 10 ML IV ONE (16:00)
[2020-01-19 18:34] VITALS: BP 132/61
[2020-01-19 18:41] VITALS: BP 132/61
[2020-01-19] MEDS ORDERED: ONDANSETRON 4 MG/2 ML (SDV) Z0FRAN IV PRN (18:45)
[2020-01-19] MEDS ORDERED: CATHETER FLUSH 10 ML SYR IV PRN (19:00)
[2020-01-19] MEDS: LACTATED RINGERS 1,000 ML IV SCH (19:02)
[2020-01-19 20:00] VITALS: BP 153/77
[2020-01-20 00:53] VITALS: BP 163/75
[2020-01-20] MEDS ORDERED: ACETAMINOPHEN 325 MG TABLET ONE (01:12)
[2020-01-20] MEDS: ACETAMINOPHEN 325 MG TABLET PO PRN (01:21)
[2020-01-20] MEDS: LACTATED RINGERS 1,000 ML IV SCH ×2 (03:00→16:43)
[2020-01-20 04:50] VITALS: BP 176/75
[2020-01-20 07:07] LABS: BASOPHILS # (AUTO) 0.1 10^3/uL (0.0-0.1); BASOPHILS % (AUTO) 1 % (0-10); EOSINOPHILS # (AUTO) 0.2 10^3/uL (0.0-0.3); EOSINOPHILS % (AUTO) 2 % (0-10); HEMATOCRIT 36 % (35-52); HEMOGLOBIN 11.8 g/dL (11.5-16.0); LYMPHOCYTES # (AUTO) 1.4 10^3/uL (1.0-4.0); LYMPHOCYTES % (AUTO) 16 % (12-44); MEAN CORPUSCULAR HEMOGLOBIN 28 pg (25-34); MEAN CORPUSCULAR HGB CONC 33 g/dL (32-36); MEAN CORPUSCULAR VOLUME 85 fL (80-99); MEAN PLATELET VOLUME 9.8 fL (9.0-12.2); MONOCYTES % (AUTO) 12 % (0-12); NEUTROPHILS # (AUTO) 5.8 10^3/uL (1.8-7.8); NEUTROPHILS % (AUTO) 69 % (42-75); PLATELET COUNT 256 10^3/uL (130-400); WHITE BLOOD COUNT 8.4 10^3/uL (4.3-11.0)
[2020-01-20 07:19] LABS: ALBUMIN 3.5 GM/DL (3.2-4.5)
[2020-01-20 07:20] LABS: CHLORIDE 104 MMOL/L (98-107); POTASSIUM 3.7 MMOL/L (3.6-5.0); SODIUM 141 MMOL/L (135-145)
[2020-01-20 07:21] LABS: CALCIUM 8.3 MG/DL (8.5-10.1)
[2020-01-20 07:22] LABS: GLUCOSE 159 MG/DL (70-105); TOTAL PROTEIN 5.8 GM/DL (6.4-8.2)
[2020-01-20 07:23] LABS: CARBON DIOXIDE 26 MMOL/L (21-32)
[2020-01-20 07:24] LABS: BILIRUBIN,TOTAL 0.8 MG/DL (0.1-1.0)
[2020-01-20 07:25] LABS: ALKALINE PHOSPHATASE 63 U/L (40-136)
[2020-01-20 07:26] LABS: CREATININE SERUM 0.75 MG/DL (0.60-1.30); GFR ESTIMATED > 60
[2020-01-20 07:27] LABS: BUN/CREATININE RATIO 15
[2020-01-20 07:29] LABS: ALANINE AMINOTRANSFERASE 9 U/L (0-55)
[2020-01-20 08:51] VITALS: BP 154/70
--- NOTE | 2020-01-20 09:17 | History & Physical-Hospitalist ---
History of Present Illness HPI/Chief Complaint Pt is an 85yoCF with a PMH of HTN, NIDDMII, hypothyroidism who presented to the ER due to nausea and weakness. She was seen in the ER a couple of days ago due to a fall and was discharged home with tramadol. She was taking this but it made her very nauseated and she was unable to keep anything down. She decided to seek evaluation in the ER because she thought she had a UTI as well. She was found to have a UTI and was admitted for weakness and IV abx. Source: patient Exam Limitations: no limitations Date Seen 01/20/20 Time Seen by a Provider: 09:12 Attending Physician Amita Yap MD PCP Melquiades Zhong MD Referring Physician Date of Admission Jan 19, 2020 at 17:21 Home Medications & Allergies Home Medications Reviewed patient Home Medication Reconciliation performed by pharmacy medication reconciliations burner technician and/or nursing. Patients Allergies have been reviewed. Allergies Allergies Coded Allergies Cephalexin Monohydrate (Unverified Allergy, Unknown, RASH, 08/15/16) benazepril HCl (Unverified Allergy, Unknown, COUGH, 08/15/16) hydrochlorothiazide (Unverified Allergy, Unknown, ITCHING, 08/15/16) irbesartan (Unverified Allergy, Unknown, RASH, 08/15/16) pantoprazole sodium (Unverified Allergy, Unknown, N/V, 08/15/16) sulfamethoxazole (Unverified Allergy, Unknown, RASH, 08/15/16) trimethoprim (Unverified Allergy, Unknown, RASH, 08/15/16) Past Kokzmpn-Zkhmrh-Euboxq Hx Past Med/Social Hx: Reviewed Nursing Past Med/Soc Hx Patient Social History Employed/Student: retired Alcohol Use: Denies Use Recreational Drug Use: No 2nd Hand Smoke Exposure: No Recent Foreign Travel: No Contact w/other who traveled: No Recent Hopitalizations: No Recent Infectious Disease Expo: No Immunizations Up To Date Tetanus Booster (TDap): Unknown Pediatric: Yes Date of Pneumonia Vaccine: Nov 19, 2019 Date of Influenza Vaccine: Nov 19, 2019 Seasonal Allergies Seasonal Allergies: No Past Medical History Surgeries: Appendectomy, Hysterectomy, Orthopedic Cardiac: High Cholesterol, Hypertension Reproductive: No Gastrointestinal: Gastroesophageal Reflux Musculoskeletal: Arthritis Psychosocial: Depression History of Blood Disorders: No Family History Reviewed Nursing Family Hx Patient reports no known family medical history. No Pertinent Family Hx Review of Systems Constitutional: No fever; weakness EENTM: no symptoms reported Respiratory: no symptoms reported Cardiovascular: no symptoms reported Gastrointestinal: see HPI, nausea Genitourinary: dysuria, frequency Musculoskeletal: see HPI Skin: no symptoms reported Psychiatric/Neurological: No Symptoms Reported Physical Exam Physical Exam Vital Signs Vital Signs - First Documented 01/19/20 15:00 Temp 36.1 Pulse 86 Resp 20 B/P (MAP) 136/85 (102) Pulse Ox 99 O2 Delivery Room Air Capillary Refill : Less Than 3 Seconds Height, Weight, BMI Height: 5'2.00" Weight: 190lbs. 0.0oz. 86.325287vd; 26.48 BMI Method:Stated General Appearance: No Apparent Distress, WD/WN HEENT: PERRL/EOMI, Moist Mucous Membranes; No Scleral Icterus (L), No Scleral Icterus (R) Neck: Normal Inspection, Supple Respiratory: Lungs Clear, No Respiratory Distress Cardiovascular: Regular Rate, Rhythm, No Murmur Gastrointestinal: Normal Bowel Sounds, Non Tender, Soft Extremity: Normal Capillary Refill, No Calf Tenderness, No Pedal Edema Neurologic/Psychiatric: Alert, Oriented x3, Normal Mood/Affect Results Results/Procedures Labs Laboratory Tests 01/19/20 15:15 01/20/20 06:24 Patient resulted labs reviewed. Imaging: Reviewed Imaging Report Imaging [facility], [place] NAME: BELLA FREEDMAN REC#: [id number] PT STATUS: REG ER : 1935 PHYSICIAN: IZABELLA MENSAH APRN ADMIT DATE: 01/19/20/ER Signed Date of Exam:01/19/20 CT HEAD WO PROCEDURE: CT head without contrast. TECHNIQUE: Multiple contiguous axial images were obtained through the brain without the use of intravenous contrast. Auto Exposure Controls were utilized during the CT exam to meet ALARA standards for radiation dose reduction. INDICATION: Weakness. COMPARISON: 04/11/2007. FINDINGS: Noncontrasted CT head shows mild cortical atrophy. There is no intracranial hemorrhage. There is no mass effect. Ventricles are not dilated. No extra-axial fluid collection. Basal cisterns are clear. Mastoid air cells are well aerated and clear. No evidence of calvarial fractures. IMPRESSION: No acute abnormalities compared with previous exam. Dictated by: Dictated on workstation # [id number] Dict: 01/19/20 1541 Trans: 01/19/201703 AS6 [id number] Interpreted by: JAYDE AU MD Electronically signed by: JAYDE AU MD 01/19/201703 [facility], [place] NAME: BELLA FREEDMAN [facility] REC#: [id number] PT STATUS: REG ER : 1935 PHYSICIAN: IZABELLA MENSAH APRN ADMIT DATE: 01/19/20/ER Signed Date of Exam:01/19/20 CHEST 1 VIEW, AP/PA ONLY INDICATION: Recent fall with weakness and urinary urgency. FINDINGS: Portable chest. The lungs are well aerated and clear. The heart is not enlarged. No pulmonary edema or hilar adenopathy. No pneumothorax or pleural effusion. No bony abnormalities. IMPRESSION: Normal portable chest. Dictated by: Dictated on workstation # [id number] Dict: 01/19/20 1550 Trans: 01/19/201702 AS6 [id number] Interpreted by: JAYDE AU MD Electronically signed by: JAYDE AU MD 01/19/201702 Assessment/Plan Admission Diagnosis UTI Admission Status: Inpatient Order (span 2 midnights) Reason for Inpatient Admission: see below Assessment and Plan UTI Continue on IV abx Await cultures and sensitivities No evidence of sepsis Generalized Weakness L2 Compression fracture PT/OT Pain well controlled currently IDDMII Resume home meds SSI HTN Resume home meds but hold Lasix due to dehydration on arrival Hypothyroidism Resume home synthroid DVT ppx: SCDs Clinical Quality Measures DVT/VTE Risk/Contraindication: Risk Factor Score Per Nursin RFS Level Per Nursing on Admit: 4+=Very High AMITA YAP MD Jan 20, 2020 09:17
--- NOTE | 2020-01-20 09:51 | Physical Therapy Evaluation ---
PT Evaluation-General Medical Diagnosis Admission Date Jan 19, 2020 at 17:21 Medical Diagnosis: fall, weakness Onset Date: Jan 19, 2020 Therapy Diagnosis Therapy Diagnosis: impaired mobility, strength, endurance Height/Weight Height (Feet): 5 Height (Inches): 2.00 Weight (Pounds): 190 Weight (Ounces): 0.0 Precautions Precautions/Isolations: Fall Prevention, Standard Precautions Referral Physician: Frac[place] Reason for Referral: Evaluation/Treatment Medical History Additional Medical History Past Medical History Surgeries: Appendectomy, Hysterectomy, Orthopedic Cardiac: High Cholesterol, Hypertension Reproductive: No Gastrointestinal: Gastroesophageal Reflux Musculoskeletal: Arthritis Psychosocial: Depression Reviewed History: Yes Social History Home: [facility] Current Living Status: Alone Entry Into Home: Stairs With Railing PT Steps Into Home: 5 Patient states she has some family staying with her Prior Prior Level of Function SCALE: Activities may be completed with or without assistive devices. 8-Begxtsbkwc-xebhqfe completes the activity by him/herself with no assistance from a helper. 5-Set-up or Clean-up Assistance-helper sets up or cleans up; patient completes activity. King assists only prior to or following the activity. 4-Supervision or Touching Assistance-helper provides verbal cues and/or touching/steadying and/or contact guard assistance as patient completes activity. Assistance may be provided throughout the activity or intermittently. 3-Partial/Moderate Assistance-helper does LESS THAN HALF the effort. King lifts, holds or supports trunk or limbs, but provides less than half the effort. 2-Substantial/Maximal Assistance-helper does MORE THAN HALF the effort. King lifts or holds trunk or limbs and provides more than half the effort. 3-Pdurmxlus-hfzoqu does ALL the effort. Patient does none of the effort to complete the activity. Or, the assistance of 2 or more helpers is required for the patient to complete the activity. If activity was not attempted, code reason: 7-Patient Refused. 9-Not Applicable-not attempted and the patient did not perform the activity before the current illness, exacerbation or injury. 10-Not Attempted due to Environmental Limitations-(lack of equipment, weather restraints, etc.). 88-Not Attempted due to Medical Conditions or Safety Concerns. Bed Mobility: 6 Transfers (B,C,W/C): 6 Gait: 6 Stairs: 6 Indoor Mobility (Ambulation): Independent Stairs: Independent Prior Devices Use: Walker Patient states she was getting to the point where she should be using a walker PT Evaluation-Current Subjective Patient in recliner pre tx, agrees to PT, has some minor pain in right side/hip area. Pt/Family Goals "to go home" Objective Patient Orientation: Person, Place, Situation Attachments: IV ROM/Strength ROM Lower Extremities WNL Strength Lower Extremities 4+/5 gross BLE Sensory Vision: Wears Glasses Hearing: Functional Sensation Right Lower Extremit: Intact Sensation Left Lower Extremity: Intact Transfers Sit to Stand (QC): 4 Chair/Wka-oq-Dqorw Xfer(QC): 4 CGA Gait Does the Patient Walk?: Yes Mode of Locomotion: Walk Anticipated Mode of Locomotion: Walk Walk 10 feet (QC): 4 Walk 50 ft with 2 Turns(QC): 4 Walk 150 ft (QC): 4 Distance: 160' Gait Assistive Device: FWW Comments/Gait Description CGA, slow ambulation, occasional unsteadiness but no LOB Balance Sitting Static: Normal Sitting Dynamic: Normal Standing Static: Good Standing Dynamic: Fair Treatment BLE seated exercises x20 (AP, LAQ) Assessment/Needs Patient has impaired mobility, strength, endurance, balance. She needs to be using a rolling walker with ambulation and have somebody with her. Rehab Potential: Fair PT Vulcan Crewmember Goals Vulcan Crewmember Goals PT Vulcan Crewmember Goals Time Frame: Jan 27, 2020 Roll Left & Right (QC): 6 Sit to Lying (QC): 6 Lying-Sitting on Side/Bed(QC): 6 Sit to Stand (QC): 6 Chair/Urj-tv-Ujzfv Xfer(QC): 5 Walk 10 feet (QC): 5 Walk 50ft with 2 Turns (QC): 5 Walk 150 ft (QC): 5 PT Plan Problem List Problem List: Activity Tolerance, Functional Strength, Safety, Balance, Gait, Transfer, Bed Mobility, ROM Treatment/Plan Treatment Plan: Continue Plan of Care Treatment Plan: Bed Mobility, Education, Functional Activity Kaylin, Functional Strength, Gait, Safety, Therapeutic Exercise, Transfers Treatment Duration: Jan 27, 2020 Frequency: 6 times per week Estimated Hrs Per Day: .25 hour per day Patient and/or Family Agrees t: Yes Safety Risks/Education Patient Education: Gait Training, Transfer Techniques, Correct Positioning, Safety Issues Teaching Recipient: Patient Teaching Methods: Demonstration, Discussion Response to Teaching: Reinforcement Needed Discharge Recommendations Plan Patient will perform bed mobility and transfer training, balance and endurance training, functional strengthening, stair training, gait training, and education, to improve functional mobility and independence at home. Therapy Discharge Recommendati: Scheduled Assistance, Home & Family, Post Acute PT Time/GCodes Time In: 904 Time Out: 920 Total Billed Treatment Time: 16 Total Billed Treatment 1 visit ALFREDO 16' DARRYL NEVES PT Jan 20, 2020 09:50
[2020-01-20 11:55] VITALS: BP 177/76
[2020-01-20] MEDS ORDERED: RABE20TA27 PO (15:17)
[2020-01-20] MEDS ORDERED: LOSA100T57 PO (15:17)
[2020-01-20] MEDS ORDERED: DONE5TAB30 PO (15:17)
[2020-01-20] MEDS ORDERED: ATEN25TA PO (15:17)
[2020-01-20] MEDS ORDERED: POTA20TA15 PO (15:17)
[2020-01-20] MEDS ORDERED: FURO40TA4 PO (15:17)
[2020-01-20] MEDS ORDERED: CLOP75TA28 PO (15:17)
[2020-01-20] MEDS ORDERED: ESCI20TA45 PO (15:17)
[2020-01-20] MEDS ORDERED: LEVO50TA6 PO (15:17)
--- NOTE | 2020-01-20 15:17 | Occupational Therapy Eval ---
OT Evaluation-General/PLF Medical Diagnosis Admission Date Jan 19, 2020 at 17:21 Medical Diagnosis: UTI, Compression fx L2 Onset Date: Jan 19, 2020 Therapy Diagnosis Therapy Diagnosis: Weakness Height/Weight Height (Feet): 5 Height (Inches): 2.00 Weight (Pounds): 190 Weight (Ounces): 0.0 Precautions Precautions/Isolations: Fall Prevention, Standard Precautions Weight Bear Status Weight Bearing Restriction: Weight Bearing/Tolerated Referral Physician: Fracisco Referral Reason: Activity Tolerance, Self Care, Evaluation/Treatment, Strengthening/ROM Medical History Pertinent Medical History: HTN Additional Medical History Hysterectomy, low back pain Current History Pt. states that she fell several days ago. She has been using a walker since. Reviewed History: Yes Social History Home: [facility] Current Living Status: Alone Entry Into Home: Stairs With Railing Steps Into Home: 7 ADL-Prior Level of Function SCALE: Activities may be completed with or without assistive devices. 4-Imxydhjgrj-iroepvb completes the activity by him/herself with no assistance from a helper. 5-Set-up or Clean-up Assistance-helper sets up or cleans up; patient completes activity. [place] assists only prior to or following the activity. 4-Supervision or Touching Assistance-helper provides verbal cues and/or touching/steadying and/or contact guard assistance as patient completes activity. Assistance may be provided throughout the activity or intermittently. 3-Partial/Moderate Assistance-helper does LESS THAN HALF the effort. [place] lifts, holds or supports trunk or limbs, but provides less than half the effort. 2-Substantial/Maximal Assistance-helper does MORE THAN HALF the effort. [place] lifts or holds trunk or limbs and provides more than half the effort. 3-Uwwkmbsyp-qbdyfg does ALL the effort. Patient does none of the effort to complete the activity. Or, the assistance of 2 or more helpers is required for the patient to complete the activity. If activity was not attempted, code reason: 7-Patient Refused. 9-Not Applicable-not attempted and the patient did not perform the activity before the current illness, exacerbation or injury. 10-Not Attempted due to Environmental Limitations-(lack of equipment, weather restraints, etc.). 88-Not Attempted due to Medical Conditions or Safety Concerns. ADL PLOF Comments Pt. states that she was independent with daily skills. She states that she has a caregiver 3-4 x/week. They do laundry and grocery shopping for her. Self Care: Independent (per pt.) Functional Cognition: Unknown DME/Equipment: Bath Chair, Tub/Shower DME/Equipment Comments Pt. has a walker and shower chair. Drive Self: No OT Current Status Subjective No pain reported. Mental Status/Objective Patient Orientation: Person, Place ADL-Treatment On/Off Footwear (QC): 2 Other Treatments Pt. stands from chair with min assist. Takes several steps to bed with min assist, and transfers to bed with min assist to get left LE into bed. All needs met. Subject Scientific Research in to talk with pt. Bed alarm set. Education OT Patient Education: Correct positioning, Modified ADL techniques, Progress toward Goal/Update tx plan, Purpose of tx/functional activities, Reviewed precautions, Rehab process, Transfer techniques Teaching Recipient: Patient Teaching Methods: Demonstration, Discussion Response to Teaching: Verbalize Understanding, Return Demonstration, Reinforcement Needed OT Short Term Goals Short Term Goals Time Frame: Jan 27, 2020 Eatin Oral hygiene: 4 Toileting hygiene: 3 Shower/bathe self: 3 Upper body dressin Lower body dressin Putting on/taking off footwear: 3 OT Skilled Nursing Goals Skilled Nursing Goals Time Frame: Feb 03, 2020 Eating (QC): 6 Oral Hygiene (QC): 4 Toileting Hygiene (QC): 6 Shower/Bathe Self (QC): 4 Upper Body Dressing (QC): 5 Lower Body Dressing (QC): 5 On/Off Footwear (QC): 5 Additional Goals: 1-Demonstrate ADL Tasks, 2-Verbalize Understanding, 3- ImproveStrength/Kaylin 1=Demonstrate adherence to instructed precautions during ADL tasks. 2=Patient will verbalize/demonstrate understanding of assistive devices/modifications for ADL. 3=Patient will improve strength/tolerance for activity to enable patient to perform ADL's. OT Education/Plan Problem List/Assessment Assessment: Decreased Activ Tolerance, Dependent Transfers, Impaired Bed Mobility, Impaired I ADL's, Impaired Self-Care Skills Discharge Recommendations Plan/Recommendations: Continue POC Therapy Discharge Recommendati: Post Acute OT Treatment Plan/Plan of Care Treatment,Training & Education: Yes Patient would benefit from OT for education, treatment and training to promote independence in ADL's, mobility, safety and/or upper extremity function for ADL's. Plan of Care: ADL Retraining, Functional Mobility, UE Funct Exercise/Act Treatment Duration: Feb 03, 2020 Frequency: 5 times per week Estimated Hrs Per Day: .25 hour per day Agreement: Yes Rehab Potential: Fair Time/GCodes Start Time: 14:00 Stop Time: 14:15 Total Time Billed (hr/min): 15 Billed Treatment Time 1, RUBIO TAYLOR OT Jan 20, 2020 15:17
[2020-01-20] MEDS ORDERED: ACET325C7 PO (15:18)
[2020-01-20] MEDS ORDERED: OMG1KC PO (15:18)
[2020-01-20] MEDS ORDERED: BETA1TAB15 PO (15:18)
--- NOTE | 2020-01-20 15:23 | NUR ---
SPOKE WITH THE PT AND CALLED [facility] TO COMPLETE THE MED REC ACCORDING TO THE PT SHE USES [facility] FOR HER MEDICATIONS AND THEY PACK HER MEDICATIONS FOR HER. I SPOKE WITH MIGEL LEAD COOK AT [facility] AND SHE VERIFIED THAT THEY PREPACK HER MEDS AND SENT ME A MED LIST. I WENT OVER THE MED LIST WITH THE PT AND SHE SAYS IT SOUNDS RIGHT, BUT SINCE THEY PACK HER MEDS SHE ISNT 100% SURE. PT WANTED ME TO DOCUMENT THAT SHE IS NO LONGER TAKING PRALUENT OTC MEDS: TYLENOL OCUVITE FISH OIL
--- NOTE | 2020-01-20 15:52 | NUR ---
"RD ASSESSMENT PMHx: HTN; DM; hypercholesterolemia; GERD; PT INTERACTION: Pt was awake and pleasant during consult for MST score. Pt states current appetite is not good, and has been this way for the last 6mon. Note PO intake 50% x1meal, per chart review. Pt states following a regular diet at home, and has no issues with chewing/swallowing food. Pt states recent issues with n/v, and that her last BM was 01/16. Note pt not currently on bowel regimen per chart review. Pt states current DM management is good, and that her last HbA1c was 6.1, taken 4mon ago. Note unable to determine recent HbA1c, per chart review. Pt states recent 40# wt loss x6mon. Note unable to determine recent wt hx, per chart review. Upon visual assessment, pt appears adequately nourished with no visible signs of muscle/fat wasting and a BMI of 26.5 (Normal BMI for age). Given wt hx, PO intake, and visual assessment, pt does not meet criteria for malnutrition per ASPEN guidelines. ABNORMAL NUTRITION-RELATED LAB VALUES LOW: Ca 8.3; Pro 5.8; HIGH: glu 159; Est. kcal needs: 4540-8200 kcal | 25-30 kcal/kg Est. Pro needs: 54-68 g Pro | 0.8-1.0 g Pro/kg PES STATEMENT: Inadequate oral intake (NI-2.1) related to loss of appetite, nausea, and vomiting, as evidenced by pt interview, and avg PO intake 50% x1meal. INTERVENTION: Continue with current diet order of CHO 75g/m 0snack diet. Switch current supplementation order from Ensure Enlive with meals to Glucerna with meals TID, for better glucose control. Glucerna provides 220 kcal and 10 g Pro per serving. Offered diet education on DM management, but pt declined at this time. Will attempt to offer again prior to discharge. Will continue to follow and reassess as pt needs, intake, and status change. Kourtney Dyer, MS RD LD [phone] cell"
[2020-01-20 16:10] VITALS: BP 192/79
[2020-01-20] MEDS: cefTRIAXone 1,000 MG/SWFI 10 ML IV PUSH IV SCH ×2 (16:43)
--- NOTE | 2020-01-20 17:06 | NUR ---
Pt states she lives alone but has a "Clinical Resource Manager " that assists her 3-4 times a week. She depends on a vlggkfnh-fm-mxy who lives in [place], [place] and will transport her home at time of discharge. Pt feels she can be discharged tomorrow and has managed arrangements for her care. In reviewing therapy notes, pt may benefit from home health care therapies Will follow and assist with any post-discharge needs.
--- NOTE | 2020-01-20 17:23 | NUR ---
Contacted pt's daughter in law Bernadette Hughes who lives in [place] and is her primary caregiver. Pt's son lives in [place] and a daughter also lives out of state. Bernadette states family has real concerns about pt going home alone but they know she won't accept any other plan. When discharged they will stay with her through the week-end. Also they would welcome Home Health Therapies on Saturday and as they have private caregiver on Saturday and Saturday. Would recommend Home Health Care to follow.
[2020-01-20] MEDS: ATENOLOL 25 MG (TENORMIN) TAB PO SCH (17:40)
[2020-01-20] MEDS: LOSARTAN 100 MG (COZAAR) TABLET PO SCH (17:40)
[2020-01-20 19:35] VITALS: BP 169/70
[2020-01-20] MEDS: DONEPEZIL 5 MG (ARICEPT) TAB PO SCH (19:59)
[2020-01-20] MEDS ORDERED: NON-FORMULARY MEDICATION 1 EA EA (Insulin Detemir (Levemir Flextouch) 10 UNITS) SC SCH (21:00)
[2020-01-21 00:34] VITALS: BP 179/74
[2020-01-21 04:00] VITALS: BP 180/78
[2020-01-21] MEDS: MULTIVIT W/MINERALS TAB (THERAGRAN M) PO SCH (07:20)
[2020-01-21] MEDS: KCL 20 MEQ TAB (K-DUR) PO SCH (07:20)
[2020-01-21] MEDS: LEVOTHYROXINE 50 MCG (LEVOTHROID) TAB PO SCH (07:20)
[2020-01-21] MEDS ORDERED: CEFD300C3 PO (07:44)
--- NOTE | 2020-01-21 07:45 | Discharge Inst-Simple/Standard ---
Discharge Inst-Standard Patient Instructions/Follow Up Plan of Care/Instructions/FU: Please continue to take your medications as written. Please follow up with your primary care doctor to follow up this hospital stay. Activity as Tolerated: Yes Discharge Diet: Cardiac Diet Return to The Hospital For: Chest pain, shortness of breath, abdominal pain, fever, confusion, weakness, cough, if you feel you are getting worse. AMITA HUA MD Jan 21, 2020 07:45
[2020-01-21 08:00] VITALS: BP 166/90
[2020-01-21] MEDS: OMEGA 3 (FISH OIL) 1000 MG CAP PO SCH (08:41)
[2020-01-21] MEDS: LOSARTAN 100 MG (COZAAR) TABLET PO SCH (08:41)
[2020-01-21] MEDS: ATENOLOL 25 MG (TENORMIN) TAB PO SCH (08:41)
[2020-01-21] MEDS: CLOPIDOGREL 75 MG (PLAVIX) TABLET PO SCH (08:41)
[2020-01-21] MEDS ORDERED: NON-FORMULARY MEDICATION 1 EA EA (Escitalopram Oxalate 10 MG) PO SCH (09:00)
[2020-01-21] MEDS ORDERED: RABEPRAZOLE SODIUM 20 MG PO SCH (09:00)
[2020-01-21] MEDS ORDERED: NON-FORMULARY MEDICATION 1 EA EA (Vit A/Vit C/Vit E/Zinc/Copper (Preservision Areds Tablet PO SCH (09:00)
--- NOTE | 2020-01-21 09:22 | Discharge Summary ---
Diagnosis/Chief Complaint Date of Admission Jan 19, 2020 at 17:21 Date of Discharge Discharge Date: Jan 21, 2020 Admission Diagnosis UTI Primary Care Elli Almonte MD Discharge Summary Discharge Physical Exam Allergies: Coded Allergies: Cephalexin Monohydrate (Unverified Allergy, Unknown, RASH- tolerates Rocephin, 01/21/20) benazepril HCl (Unverified Allergy, Unknown, COUGH, 08/15/16) hydrochlorothiazide (Unverified Allergy, Unknown, ITCHING, 08/15/16) irbesartan (Unverified Allergy, Unknown, RASH, 08/15/16) pantoprazole sodium (Unverified Allergy, Unknown, N/V, 08/15/16) sulfamethoxazole (Unverified Allergy, Unknown, RASH, 08/15/16) trimethoprim (Unverified Allergy, Unknown, RASH, 08/15/16) Vitals & I&Os Vital Signs Date Time Temp Pulse Resp B/P (MAP) Pulse Ox O2 Delivery O2 Flow Rate FiO2 01/22/20 11:17 36.8 54 18 166/73 (104) 97 Room Air General Appearance: No Apparent Distress, WD/WN Respiratory: Lungs Clear, No Respiratory Distress Cardiovascular: Regular Rate, Rhythm, No Murmur Neurologic/Psychiatric: Alert, Oriented x3 Hospital Course Pt was admitted due to generalized weakness and UTI. She was treated with IV Rocephin and did well. She worked with PT/OT and did very well. She was discharged home in stable condition to follow up with her primary care Dr Almonte. Labs (last 24 hrs) Laboratory Tests 01/21/20 20:39: Glucometer 151H 01/22/20 05:56: Glucometer 79 01/22/20 11:16: Glucometer 124H Microbiology 01/19/20 Urine Culture - Final, Complete Escherichia coli Patient resulted labs reviewed. Pending Labs Laboratory Tests 01/22/20 05:56: Glucometer 79 01/22/20 11:16: Glucometer 124 Imaging: Reviewed Imaging Report Discussion & Recommendations Discharge Planning: >30 minutes discharge planning Discharge Home Medications: Active Scripts Active Reported Fish Oil 1,000 mg Capsule ([place] 3 Polyunsat Fatty Acids) 1,000 Mg Cap 1,000 Mg PO DAILY Tylenol (Acetaminophen) 325 Mg Capsule 325-650 Mg PO Q8H PRN Preservision Areds Tablet (Vit A/Vit C/Vit E/Zinc/Copper) 1 Each Tablet 1 Each PO DAILY Escitalopram Oxalate 20 Mg Tablet 10 Mg PO DAILY TAKES (20MG) TABS Rabeprazole Sodium 20 Mg Tablet.dr 20 Mg PO DAILY Losartan Potassium 100 Mg Tablet 100 Mg PO DAILY Clopidogrel (Clopidogrel Bisulfate) 75 Mg Tablet 75 Mg PO DAILY Donepezil HCl 5 Mg Tablet 5 Mg PO HS Potassium Chloride 20 Meq Tab.er.prt 20 Meq PO DAILY Atenolol 25 Mg Tablet 25 Mg PO DAILY Furosemide 40 Mg Tablet 40 Mg PO DAILY Levothyroxine Sodium 50 Mcg Tablet 50 Mcg PO DAILY Levemir Flextouch (Insulin Detemir) 100 Unit/1 Ml Insuln.pen 30 Units SC HS Instructions to patient/family Please see electronic discharge instructions given to patient. Clinical Quality Measures DVT/VTE Risk/Contraindication: Risk Factor Score Per Nursin RFS Level Per Nursing on Admit: 4+=Very High Copy Copies To 1: ELLI ALMONTE MD, KATELYN M MD Jan 21, 2020 09:22
[2020-01-21] MEDS: LOPERAMIDE 2 MG (IMODIUM) TABLET PO PRN (11:52)
[2020-01-21 12:00] VITALS: BP 160/75
--- NOTE | 2020-01-21 14:33 | Physical Therapy Daily Note ---
PT Daily Note-Current Subjective Patient report her family refuses to take care of her. Agrees to PT with OT nba. Pain Numeric Pain Scale: 0-No Pain Location: No Pain Reported Mental Status Patient Orientation: Normal For Age Transfers SCALE: Activities may be completed with or without assistive devices. 5-Fwfrjhvotp-ltauhrf completes the activity by him/herself with no assistance from a helper. 5-Set-up or Clean-up Assistance-helper sets up or cleans up; patient completes activity. [place] assists only prior to or following the activity. 4-Supervision or Touching Assistance-helper provides verbal cues and/or touching/steadying and/or contact guard assistance as patient completes activity. Assistance may be provided throughout the activity or intermittently. 3-Partial/Moderate Assistance-helper does LESS THAN HALF the effort. [place] lifts, holds or supports trunk or limbs, but provides less than half the effort. 2-Substantial/Maximal Assistance-helper does MORE THAN HALF the effort. [place] lifts or holds trunk or limbs and provides more than half the effort. 1-Uhifphfna-djmluc does ALL the effort. Patient does none of the effort to complete the activity. Or, the assistance of 2 or more helpers is required for the patient to complete the activity. If activity was not attempted, code reason: 7-Patient Refused. 9-Not Applicable-not attempted and the patient did not perform the activity before the current illness, exacerbation or injury. 10-Not Attempted due to Environmental Limitations-(lack of equipment, weather restraints, etc.). 88-Not Attempted due to Medical Conditions or Safety Concerns. Sit to Stand (QC): 4 (patient dons shoes with set up in chair) Gait Training Does the Patient Walk?: Yes Distance: 400' Walk 10 feet (QC): 4 Walk 50 ft with 2 Turns(QC): 4 Walk 150 ft (QC): 4 Gait Assistive Device: FWW NBOS with shuffle gait sequence with 3 episodes of slight LOB with PT correct Stair Training Stair Training: Handrails/: 2 handrails #of Steps: 6 1 Step (curb) (QC): 4 4 Steps (QC): 4 12 Steps (QC): 88 Stairs: Pattern: Step to [facility] for safety due to slight LOB backward during ascending Assessment Discussed with patient PT's concern with safety in home without assistance and need to have 24/7 supervision to assist patient with ADL's and to ensure safety with mobility due to shuffle gait sequence and patient having carpet in home. Patient voices understand. physician and SW notified of PT/patient conservation. PT Jail Goals Furnace Mechanic Helper Goals PT Furnace Mechanic Helper Goals Time Frame: Jan 27, 2020 Roll Left & Right (QC): 6 Sit to Lying (QC): 6 Lying-Sitting on Side/Bed(QC): 6 Sit to Stand (QC): 6 Chair/Zuj-ym-Maezc Xfer(QC): 5 Walk 10 feet (QC): 5 Walk 50ft with 2 Turns (QC): 5 Walk 150 ft (QC): 5 PT Plan Treatment/Plan Treatment Plan: Continue Plan of Care Treatment Plan: Bed Mobility, Education, Functional Activity Kaylin, Functional Strength, Gait, Safety, Therapeutic Exercise, Transfers Treatment Duration: Jan 27, 2020 Frequency: 6 times per week Estimated Hrs Per Day: .25 hour per day Patient and/or Family Agrees t: Yes Time/GCodes Time In: 1350 Time Out: 1406 Total Billed Treatment Time: 16 Total Billed Treatment 1 visit FA 16 min JAYLIN GUERRA PT Jan 21, 2020 14:33
--- NOTE | 2020-01-21 14:42 | Occupational Ther Daily Note ---
OT Current Status-Daily Note Subjective Pt alert, sitting in recliner. Pt agrees to therapy. No c/o pain. PT discussing about safety with pt at home and due to gait patterns pt is a safety concern being at home by self. Mental Status/Objective Patient Orientation: Person, Place, Time, Situation Attachments: IV ADL-Treatment Pt able to don shoes by self after set up. Pt able to ambulate manipulating FWW around hospital hallways with close SBA to CGA due to shuffling narrow gait pattern. PT working with pt on stairs. After session, pt sitting in recliner with call light/phone in reach. All needs met in room. Therapy Code Descriptions/Definitions Functional [place] Measure: 0=Not Assessed/NA 4=Minimal Assistance 1=Total Assistance 5=Supervision or Setup 2=Maximal Assistance 6=Modified [place] 3=Moderate Assistance 7=Complete IndependenceSCALE: Activities may be completed with or without assistive devices. 2-Uthkfvivil-dydnkvu completes the activity by him/herself with no assistance from a helper. 5-Set-up or Clean-up Assistance-helper sets up or cleans up; patient completes activity. [place] assists only prior to or following the activity. 4-Supervision or Touching Assistance-helper provides verbal cues and/or touching/steadying and/or contact guard assistance as patient completes acti vity. Assistance may be provided throughout the activity or intermittently. 3-Partial/Moderate Assistance-helper does LESS THAN HALF the effort. [place] lifts, holds or supports trunk or limbs, but provides less than half the effort. 2-Substantial/Maximal Assistance-helper does MORE THAN HALF the effort. [place] lifts or holds trunk or limbs and provides more than half the effort. 9-Xzpdzgvxc-geqbim does ALL the effort. Patient does none of the effort to complete the activity. Or, the assistance of 2 or more helpers is required for the patient to complete the activity. If activity was not attempted, code reason: 7-Patient Refused. 9-Not Applicable-not attempted and the patient did not perform the activity before the current illness, exacerbation or injury. 10-Not Attempted due to Environmental Limitations-(lack of equipment, weather restraints, etc.). 88-Not Attempted due to Medical Conditions or Safety Concerns. OT Short Term Goals Short Term Goals Time Frame: Jan 27, 2020 Eatin Oral hygiene: 4 Toileting hygiene: 3 Shower/bathe self: 3 Upper body dressin Lower body dressin Putting on/taking off footwear: 3 OT Halfway Goals Hose Tender Goals Time Frame: Feb 03, 2020 Eating (QC): 6 Oral Hygiene (QC): 4 Toileting Hygiene (QC): 6 Shower/Bathe Self (QC): 4 Upper Body Dressing (QC): 5 Lower Body Dressing (QC): 5 On/Off Footwear (QC): 5 Additional Goals: 1-Demonstrate ADL Tasks, 2-Verbalize Understanding, 3- ImproveStrength/Kaylin 1=Demonstrate adherence to instructed precautions during ADL tasks. 2=Patient will verbalize/demonstrate understanding of assistive devices/modifications for ADL. 3=Patient will improve strength/tolerance for activity to enable patient to perform ADL's. OT Education/Plan Problem List/Assessment Assessment: Decreased Activ Tolerance, Decreased Safety Aware, Impaired Self- Care Skills Discharge Recommendations Plan/Recommendations: Continue POC Treatment Plan/Plan of Care Patient would benefit from OT for education, treatment and training to promote independence in ADL's, mobility, safety and/or upper extremity function for ADL's. Plan of Care: ADL Retraining, Functional Mobility, UE Funct Exercise/Act Treatment Duration: Feb 03, 2020 Frequency: 5 times per week Estimated Hrs Per Day: .25 hour per day Agreement: Yes Rehab Potential: Fair Time/GCodes Start Time: 13:57 Stop Time: 14:10 Total Time Billed (hr/min): 13 Billed Treatment Time 1 visit-FA 1 (13 min) DENVER HAGER Jan 21, 2020 14:42
[2020-01-21] MEDS: cefTRIAXone 1,000 MG/SWFI 10 ML IV PUSH IV SCH ×2 (15:29)
[2020-01-21 16:00] VITALS: BP 169/71
--- NOTE | 2020-01-21 17:22 | NUR ---
Received phone call from pt's daughter in-law who stated she didn't feel comfortable taking pt home today and was asking her son to get involved and determine continued care plan. Pt's son Shamar Hughes did call and held conference with pt and Shamar. Pt doesn't want to seek halfway placement but would like Home Health Care to provide services including Nursing Physical and Occupational Therapies. Physical Therapy felt pt was ambulating but tentative and would need someone in the home initially to be available to assist, Pt's son will be here tomorrow at 2:00 to accompany her home and will remain until he can feel comfortable with her remaining in the home. Pt currently has a homemaker 3 days a week and will try to arrange further in-home care. If he finds she isn't safe at home he will encourage her to seek short-term placement in a snf facility. Pt states she has trouble hearing as her hearing aids don't work and she has new ones ordered. 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 Pt initially upset about the tentative continued care plans but after talking with son seemed much calmer. Will follow
--- NOTE | 2020-01-21 18:52 | Progress Note - Hospitalist ---
Subjective HPI/CC On Admission Date Seen by Provider: Jan 21, 2020 Time Seen by Provider: 09:30 Pt is an 85yoCF with a PMH of HTN, NIDDMII, hypothyroidism who presented to the ER due to nausea and weakness. She was seen in the ER a couple of days ago due to a fall and was discharged home with tramadol. She was taking this but it made her very nauseated and she was unable to keep anything down. She decided to seek evaluation in the ER because she thought she had a UTI as well. She was found to have a UTI and was admitted for weakness and IV abx. Subjective/Events-last exam Pt reports feeling better and getting around better but had some diarrhea and was worried about going home because of that. We decided to wait and see how the day goes before coming up with a plan for discharge. I returned to her room in the afternoon when she was on the phone with her daughter in law and social media campaign manager via speakerphone. I was unable to talk to with her daughter in law because the phone call ended as I was walking in. Roopa was quite upset and tearful so Norma and I comforted her and ensured her we would not discharge her prior to having a safe plan she was comfortable with in place. I offered to call her daughter in law but she requested that I not do that at this time. I offered to call her son Shamar but he is currently unavailable at work. Objective Exam Vital Signs Vital Signs Date Time Temp Pulse Resp B/P (MAP) Pulse Ox O2 Delivery O2 Flow Rate FiO2 01/22/20 11:17 36.8 54 18 166/73 (104) 97 Room Air Capillary Refill : Less Than 3 Seconds General Appearance: Anxious, Other (tearful and upset) Respiratory: Lungs Clear, No Respiratory Distress Cardiovascular: Regular Rate, Rhythm, No Murmur Neurologic/Psychiatric: Alert, Oriented x3 Results/Procedures Lab Patient resulted labs reviewed. Assessment/Plan Assessment and Plan Assess & Plan/Chief Complaint UTI Continue on IV abx E coli that is pansensitive culture No evidence of sepsis Generalized Weakness L2 Compression fracturea PT/OT Pain well controlled currently May need home health, will continue assessment for home care need or placement IDDMII Resume home meds SSI HTN Cont home meds Hypothyroidism Cont home synthroid DVT ppx: SCDs Clinical Quality Measures DVT/VTE Risk/Contraindication: Risk Factor Score Per Nursin RFS Level Per Nursing on Admit: 4+=Very High AMITA HUA MD Jan 21, 2020 18:52
[2020-01-21 19:50] VITALS: BP 156/64
[2020-01-21] MEDS: DONEPEZIL 5 MG (ARICEPT) TAB PO SCH (20:33)
[2020-01-21] MEDS: ACETAMINOPHEN 325 MG TABLET PO PRN (22:39)
[2020-01-22] VITALS: BP 152/67
[2020-01-22 04:00] VITALS: BP 149/67
[2020-01-22] MEDS: LEVOTHYROXINE 50 MCG (LEVOTHROID) TAB PO SCH (05:59)
[2020-01-22] MEDS: MULTIVIT W/MINERALS TAB (THERAGRAN M) PO SCH (05:59)
[2020-01-22] MEDS: KCL 20 MEQ TAB (K-DUR) PO SCH (05:59)
[2020-01-22 07:53] VITALS: BP 183/77
[2020-01-22] MEDS: LOPERAMIDE 2 MG (IMODIUM) TABLET PO PRN (08:17)
[2020-01-22] MEDS: LOSARTAN 100 MG (COZAAR) TABLET PO SCH (08:17)
[2020-01-22] MEDS: CLOPIDOGREL 75 MG (PLAVIX) TABLET PO SCH (08:18)
[2020-01-22] MEDS: ATENOLOL 25 MG (TENORMIN) TAB PO SCH (08:18)
[2020-01-22] MEDS: ACETAMINOPHEN 325 MG TABLET PO PRN (08:18)
[2020-01-22] MEDS: OMEGA 3 (FISH OIL) 1000 MG CAP PO SCH (08:18)
--- NOTE | 2020-01-22 09:05 | NUR ---
Pt's son contacted social insurance specialist after further discussions with his mother. He states she now is wanting to pursue short-term therapies and placement at a half-way home. Pt's son doesn't know which facility but states he will be available to assist his mother and still plans on arriving here at 2:00pm. Have discussed pt's decision to pursue skilled placement and unsure of where she would like to go Have sent pt's evaluations to 3 local facilities to see which ones have bed availability and would accept. Have discussed pt's change of plans with Dr. Yap and she plans to further discuss with pt. Will follow.
[2020-01-22 09:57] VITALS: BP 186/86
--- NOTE | 2020-01-22 10:11 | NUR ---
Pastoral Referral for signs of spiritual distress: This Neck Band Setter has served the patients and her significant other (now ) during their hospital stays over the past 6 years. The patient demonstrated trust by confiding that she was diagnosed with dementia in the past year, and also struggles with her eyesight and hearing. The patient expressed she is reserved about sharing this diagnosis. She expressed concerns about burdening her children with caring for her at home. The resident acknowledged she would need 24 hour care, and that she was leaning toward senior care. The patient shared she lives in a two story house exclusively on the first floor and states she does not drive or leave the house alone. Throughout the visit, the patient expressed feeling embarrassed when she forgot words or felt like she was rambling. She stated "I know it's the dementia, but it still bothers me." Neck Band Setter offered empathy, normalized experience, and validated the patient's personhood, intelligence and personal kendra which grounds her in the unique struggles of her diagnosis. Neck Band Setter was present for Dr. Yap's visit. Patient welcomed Neck Band Setter to stay. Patient asked the doctor if she was making the right choice by pursuing skilled care in a nursing facility rather than discharging with home health. Dr. Yap affirmed the patient's leanings, and the patient expressed feeling relief and validation. Following the doctor's visit, the patient shared that her friend, Kenia Arce, checks in on her at home 3 times weekly. The patient requested Neck Band Setter contact Rubia so they could discuss Kenia Thomas recommendations for senior care facilitates. The patient requested contact be made to two of her taoist elders and her roll sheeting cutter. Neck Band Setter made all contacts while present with the patient and relayed the information she requested. Also provided the room phone number to Kenia Luis, Gnosticism Elders Benradette and Silva, and Detasseler Ava Haynes per patient's request. Neck Band Setter ensured the phone volume was turned up after the patient said she could not hear on her last phone call. The patient said she did not bring her hearing aids or cellphone. Neck Band Setter offered prayer for guidance, peace and the forging of new and supportive relationships in the next steps of the patient's journey.
--- NOTE | 2020-01-22 10:50 | Physical Therapy Daily Note ---
PT Daily Note-Current Subjective Patient agrees to PT. No c/o. Mental Status Patient Orientation: Person, Time, Situation Transfers SCALE: Activities may be completed with or without assistive devices. 8-Hbkqxtfbyp-mspwlad completes the activity by him/herself with no assistance fr om a helper. 5-Set-up or Clean-up Assistance-helper sets up or cleans up; patient completes activity. [place] assists only prior to or following the activity. 4-Supervision or Touching Assistance-helper provides verbal cues and/or touching/steadying and/or contact guard assistance as patient completes activity. Assistance may be provided throughout the activity or intermittently. 3-Partial/Moderate Assistance-helper does LESS THAN HALF the effort. [place] lifts, holds or supports trunk or limbs, but provides less than half the effort. 2-Substantial/Maximal Assistance-helper does MORE THAN HALF the effort. [place] lifts or holds trunk or limbs and provides more than half the effort. 8-Uqtlpfizp-qxqnkg does ALL the effort. Patient does none of the effort to complete the activity. Or, the assistance of 2 or more helpers is required for the patient to complete the activity. If activity was not attempted, code reason: 7-Patient Refused. 9-Not Applicable-not attempted and the patient did not perform the activity before the current illness, exacerbation or injury. 10-Not Attempted due to Environmental Limitations-(lack of equipment, weather restraints, etc.). 88-Not Attempted due to Medical Conditions or Safety Concerns. Lying to Sitting/Side of Bed(Q: 5 Sit to Stand (QC): 4 Chair/Zxl-vt-Eptkx Xfer(QC): 4 CGA for safety Gait Training Does the Patient Walk?: Yes Distance: 325' Walk 10 feet (QC): 4 Walk 50 ft with 2 Turns(QC): 4 Walk 150 ft (QC): 4 Gait Assistive Device: FWW NBOS/shuffle gait sequence Exercises Seated Therapy Exercises: Ankle pumps, Long arc quads Seated Reps: 15 Assessment Patient tolerated treatment well and is up in recliner with chair alarm activated. Plan dismissal to CT. 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 PT Mcc Goals Time Frame: Jan 27, 2020 Roll Left & Right (QC): 6 Sit to Lying (QC): 6 Lying-Sitting on Side/Bed(QC): 6 Sit to Stand (QC): 6 Chair/Qjs-vz-Kxjdf Xfer(QC): 5 Walk 10 feet (QC): 5 Walk 50ft with 2 Turns (QC): 5 Walk 150 ft (QC): 5 PT Plan Treatment/Plan Treatment Plan: Continue Plan of Care Treatment Plan: Bed Mobility, Education, Functional Activity Kaylin, Functional Strength, Gait, Safety, Therapeutic Exercise, Transfers Treatment Duration: Jan 27, 2020 Frequency: 6 times per week Estimated Hrs Per Day: .25 hour per day Patient and/or Family Agrees t: Yes Time/GCodes Time In: 1012 Time Out: 1027 Total Billed Treatment Time: 15 Total Billed Treatment 1 visit FA 15 min JAYLIN GUERRA PT Jan 22, 2020 10:50
[2020-01-22 11:17] VITALS: BP 166/73
--- NOTE | 2020-01-22 13:40 | NUR ---
THIS RN ATTEMPTED TO CALL [facility] FOR REPORT ON PT. THE NURSE TAKING THIS PT WAS UNAVAILABLE. THIS RN'S NUMBER WAS LEFT AND WILL BE EXPECTING A CALL SHORTLY FROM [facility] [employer] [facility] TO GIVE REPORT.
--- NOTE | 2020-01-22 13:54 | Discharge Summary ---
Diagnosis/Chief Complaint Date of Admission Jan 19, 2020 at 17:21 Date of Discharge Discharge Date: Jan 22, 2020 Admission Diagnosis UTI Primary Care Melquiades Zhong MD Discharge Summary Discharge Physical Exam Allergies: Coded Allergies: Cephalexin Monohydrate (Unverified Allergy, Unknown, RASH- tolerates Rocephin, 01/21/20) benazepril HCl (Unverified Allergy, Unknown, COUGH, 08/15/16) hydrochlorothiazide (Unverified Allergy, Unknown, ITCHING, 08/15/16) irbesartan (Unverified Allergy, Unknown, RASH, 08/15/16) pantoprazole sodium (Unverified Allergy, Unknown, N/V, 08/15/16) sulfamethoxazole (Unverified Allergy, Unknown, RASH, 08/15/16) trimethoprim (Unverified Allergy, Unknown, RASH, 08/15/16) Vitals & I&Os Vital Signs Date Time Temp Pulse Resp B/P (MAP) Pulse Ox O2 Delivery O2 Flow Rate FiO2 01/22/20 11:17 36.8 54 18 166/73 (104) 97 Room Air General Appearance: No Apparent Distress, Chronically ill Cardiovascular: Regular Rate, Rhythm, No Murmur Gastrointestinal: Normal Bowel Sounds, Non Tender, Soft Neurologic/Psychiatric: Alert, Oriented x3 Hospital Course Pt was admitted due to UTI and generalized weakness. She was treated with Rocephin and did well and completed the course here in the hospital. PT/OT was consulted and with their recommendations and discussions with family and patient it was deemed in her best interest to discharge to a SNF for continued therapy and strengthening before discharging home where she lives alone. I called and spoke with her son regarding this plan per patient request and he was in agreement with this plan. She was discharged to [facility] in stable and improved condition. Labs (last 24 hrs) Laboratory Tests 01/21/20 20:39: Glucometer 151H 01/22/20 05:56: Glucometer 79 01/22/20 11:16: Glucometer 124H Microbiology 01/19/20 Urine Culture - Final, Complete Escherichia coli Patient resulted labs reviewed. Pending Labs Laboratory Tests 01/22/20 05:56: Glucometer 79 01/22/20 11:16: Glucometer 124 Imaging: Reviewed Imaging Report Discussion & Recommendations Discharge Planning: >30 minutes discharge planning Discharge Home Medications: Active Scripts Active Reported Fish Oil 1,000 mg Capsule ([place] 3 Polyunsat Fatty Acids) 1,000 Mg Cap 1,000 Mg PO DAILY Tylenol (Acetaminophen) 325 Mg Capsule 325-650 Mg PO Q8H PRN Preservision Areds Tablet (Vit A/Vit C/Vit E/Zinc/Copper) 1 Each Tablet 1 Each PO DAILY Escitalopram Oxalate 20 Mg Tablet 10 Mg PO DAILY TAKES (20MG) TABS Rabeprazole Sodium 20 Mg Tablet.dr 20 Mg PO DAILY Losartan Potassium 100 Mg Tablet 100 Mg PO DAILY Clopidogrel (Clopidogrel Bisulfate) 75 Mg Tablet 75 Mg PO DAILY Donepezil HCl 5 Mg Tablet 5 Mg PO HS Potassium Chloride 20 Meq Tab.er.prt 20 Meq PO DAILY Atenolol 25 Mg Tablet 25 Mg PO DAILY Furosemide 40 Mg Tablet 40 Mg PO DAILY Levothyroxine Sodium 50 Mcg Tablet 50 Mcg PO DAILY Levemir Flextouch (Insulin Detemir) 100 Unit/1 Ml Insuln.pen 30 Units SC HS Instructions to patient/family Please see electronic discharge instructions given to patient. Clinical Quality Measures DVT/VTE Risk/Contraindication: Risk Factor Score Per Nursin RFS Level Per Nursing on Admit: 4+=Very High AMITA HUA MD Jan 22, 2020 13:54
--- NOTE | 2020-01-22 15:20 | Occupational Ther Daily Note ---
OT Current Status-Daily Note Subjective Pt alert, sitting in recliner. Pt agrees to therapy. Pt to be discharge sometime today to SNF in [place]. Mental Status/Objective Patient Orientation: Person, Place, Time, Situation Attachments: IV ADL-Treatment Pt required assistance to sequence donning/doffing clothing. When pt had difficulty with donning clothing pt unable to problem solve how to manipulate clothing to finish. Min A for donning/doffing lower/upper body clothing. Mod A for donning/doffing socks. Able to don/doff shoes by self. Pt able to stand with CGA to hike pants over hips. After therapy, pt sitting in recliner with call light/phone in reach. Safety measures in place. All needs met in room. Therapy Code Descriptions/Definitions Functional [place] Measure: 0=Not Assessed/NA 4=Minimal Assistance 1=Total Assistance 5=Supervision or Setup 2=Maximal Assistance 6=Modified [place] 3=Moderate Assistance 7=Complete IndependenceSCALE: Activities may be completed with or without assistive devices. 4-Jxcuscihgu-cuxmzyi completes the activity by him/herself with no assistance from a helper. 5-Set-up or Clean-up Assistance-helper sets up or cleans up; patient completes activity. [place] assists only prior to or following the activity. 4-Supervision or Touching Assistance-helper provides verbal cues and/or touching/steadying and/or contact guard assistance as patient completes activity. Assistance may be provided throughout the activity or intermittently. 3-Partial/Moderate Assistance-helper does LESS THAN HALF the effort. [place] lifts, holds or supports trunk or limbs, but provides less than half the effort. 2-Substantial/Maximal Assistance-helper does MORE THAN HALF the effort. [place] lifts or holds trunk or limbs and provides more than half the effort. 0-Jnrouwzev-jouowc does ALL the effort. Patient does none of the effort to complete the activity. Or, the assistance of 2 or more helpers is required for the patient to complete the activity. If activity was not attempted, code reason: 7-Patient Refused. 9-Not Applicable-not attempted and the patient did not perform the activity before the current illness, exacerbation or injury. 10-Not Attempted due to Environmental Limitations-(lack of equipment, weather restraints, etc.). 88-Not Attempted due to Medical Conditions or Safety Concerns. OT Short Term Goals Short Term Goals Time Frame: Jan 27, 2020 Eatin Oral hygiene: 4 Toileting hygiene: 3 Shower/bathe self: 3 Upper body dressin Lower body dressin Putting on/taking off footwear: 3 OT Product Development Director Goals Care Home Goals Time Frame: Feb 03, 2020 Eating (QC): 6 Oral Hygiene (QC): 4 Toileting Hygiene (QC): 6 Shower/Bathe Self (QC): 4 Upper Body Dressing (QC): 5 Lower Body Dressing (QC): 5 On/Off Footwear (QC): 5 Additional Goals: 1-Demonstrate ADL Tasks, 2-Verbalize Understanding, 3- ImproveStrength/Kaylin 1=Demonstrate adherence to instructed precautions during ADL tasks. 2=Patient will verbalize/demonstrate understanding of assistive devices/modifications for ADL. 3=Patient will improve strength/tolerance for activity to enable patient to perform ADL's. OT Education/Plan Problem List/Assessment Assessment: Decreased Activ Tolerance, Decreased Safety Aware, Impaired Cognition, Impaired Self-Care Skills Discharge Recommendations Plan/Recommendations: Continue POC Treatment Plan/Plan of Care Patient would benefit from OT for education, treatment and training to promote independence in ADL's, mobility, safety and/or upper extremity function for ADL's. Plan of Care: ADL Retraining, Functional Mobility, UE Funct Exercise/Act Treatment Duration: Feb 03, 2020 Frequency: 5 times per week Estimated Hrs Per Day: .25 hour per day Agreement: Yes Rehab Potential: Fair Time/GCodes Start Time: 15:00 Stop Time: 15:15 Total Time Billed (hr/min): 15 Billed Treatment Time 1 visit-ADL 1 (15 min) DENVER HAGER Jan 22, 2020 15:20
--- NOTE | 2020-01-22 15:45 | NUR ---
PT AND FAMILY CANCELED PLANS OF GOING TO [facility] AT THIS TIME. THEY WOULD RATHER D/C HOME AND ATTEMPT TO FIND PLACEMENT ON THEIR OWN. THIS RN RESPECTS PT'S WISHES AND PT WILL DISCHARGE HOME WITH SON.
--- NOTE | 2020-01-22 16:10 | NUR ---
THIS RN ESCORTED PT VIA WHEELCHAIR AND PT'S SON TO PRIVATE AUTOMOBILE AT THIS TIME. ALL BELONGINGS ARE PRESENT WITH PT. ALL QUESTIONS/CONCERNS HAVE BEEN ANSWERED AT THIS TIME.
--- NOTE | 2020-01-22 16:41 | NUR ---
As noted by RN, at time of discharge with plans for pt be transferred to [facility] by pt's son Shamar a conference call was held with [id number] and several other members who decided to refuse placement at [facility]. They are interested in [facility] so plans were made for Shamar to accompany pt to her home until arrangements could be made with their preferred facility. Pt and family were advised that pt should not be alone in her home as she needs assistance in activities of daily living and for her safety when walking. Shamar and Bernadette,pt's daughter -in law stated they understood and would make plans for her to have someone in the the home assisting her. Medical records were faxed to [facility] for their review upon request from pt and family. They will be working with pt and facility for further continued care plans.
== END 2020-01-22 16:10 | DRG 690 ==
LOC: EDUNIT# 14:48 → ER 14:49 → 4TH 17:21
PROVIDERS: ADMIT Family Medicine; ATTEND Family Medicine
DX: N39.0 Urinary tract infection, site not specified (principal); E11.9 Type 2 diabetes mellitus without complications; I10 Essential (primary) hypertension; E03.9 Hypothyroidism, unspecified; R53.1 Weakness; S32.029D Unspecified fracture of second lumbar vertebra, subsequent encounter for fracture with routine healing; Z88.2 Allergy status to sulfonamides; Z88.1 Allergy status to other antibiotic agents; Z88.8 Allergy status to other drugs, medicaments and biological substances
CPT/HCPCS: 36415; 70450; 71045; 76937; 80053; 81000; 82962; 85025; 87077; 87088; 87186

== ENCOUNTER 2020-07-09 10:38 | Observation (INO) | payer MEDICARE ==
[~2020-07-09] VITALS: Ht 160 cm; Wt 58.3 kg
[~2020-07-09 10:38] MED LIST changes: +ACET325C7 PO; +BETA1TAB15 PO; +CEFD300C3 PO; +CLOP75TA28 PO; +DONE5TAB30 PO; +ESCI20TA39 PO; +LEVO50TA6 PO; +LOSA100T57 PO; +OMG1KC PO; +POTA20TA15 PO; +RABE20TA30 PO
[2020-07-09 11:09] LABS: BASOPHILS # (AUTO) 0.1 10^3/uL (0.0-0.1); BASOPHILS % (AUTO) 1 % (0-10); EOSINOPHILS # (AUTO) 0.1 10^3/uL (0.0-0.3); EOSINOPHILS % (AUTO) 1 % (0-10); HEMATOCRIT 39 % (35-52); HEMOGLOBIN 12.8 g/dL (11.5-16.0); LYMPHOCYTES # (AUTO) 1.1 10^3/uL (1.0-4.0); LYMPHOCYTES % (AUTO) 15 % (12-44); MEAN CORPUSCULAR HEMOGLOBIN 28 pg (25-34); MEAN CORPUSCULAR HGB CONC 33 g/dL (32-36); MEAN CORPUSCULAR VOLUME 86 fL (80-99); MEAN PLATELET VOLUME 9.6 fL (9.0-12.2); MONOCYTES # (AUTO) 0.6 10^3/uL (0.0-1.0); MONOCYTES % (AUTO) 9 % (0-12); NEUTROPHILS # (AUTO) 5.4 10^3/uL (1.8-7.8); NEUTROPHILS % (AUTO) 75 % (42-75); PLATELET COUNT 249 10^3/uL (130-400); WHITE BLOOD COUNT 7.2 10^3/uL (4.3-11.0)
[2020-07-09 11:22] LABS: CHLORIDE 103 MMOL/L (98-107); POTASSIUM 4.2 MMOL/L (3.6-5.0); SODIUM 140 MMOL/L (135-145)
[2020-07-09 11:23] LABS: CALCIUM 9.3 MG/DL (8.5-10.1)
[2020-07-09 11:24] LABS: GLUCOSE 162 MG/DL (70-105); TOTAL PROTEIN 6.3 GM/DL (6.4-8.2)
--- NOTE | 2020-07-09 11:24 | ED Neurological Problem ---
General Stated Complaint: POSS UTI,DEHYDRATION Source: patient Exam Limitations: no limitations History of Present Illness Date Seen by Provider: July 09, 2020 Time Seen by Provider: 10:59 Initial Comments Here with complaint of right-sided blurred vision and right sided decreased sensation. Concerned about possibility of stroke. Onset yesterday afternoon. She did have a period of dizziness in which she turned and lost her balance and fell against a cabinet. She did not hurt herself and did not fall to the floor as she caught her self. Does have history of urinary tract infection that was treated with 5 days of nitrofurantoin and was reportedly clear 3 days ago. She does not eat or drink well. She lives at home with home health aide help. Does have supportive family. Denies fever chills, nausea, vomiting, chest pain or breathing problems. Does report weakness. Timing/Duration: 24 hours Severity: mild, moderate Associated Symptoms: No fever/chills; numbness in legs/feet; No seizures, No slurred speech; vision changes, weakness Allergies and Home Medications Allergies Coded Allergies: Cephalexin Monohydrate (Unverified Allergy, Unknown, RASH- tolerates Rocephin, 01/21/20) benazepril HCl (Unverified Allergy, Unknown, COUGH, 08/15/16) hydrochlorothiazide (Unverified Allergy, Unknown, ITCHING, 08/15/16) irbesartan (Unverified Allergy, Unknown, RASH, 08/15/16) pantoprazole sodium (Unverified Allergy, Unknown, N/V, 08/15/16) sulfamethoxazole (Unverified Allergy, Unknown, RASH, 08/15/16) trimethoprim (Unverified Allergy, Unknown, RASH, 08/15/16) Home Medications Acetaminophen 325 Mg Capsule, 325-650 MG PO Q8H PRN for PAIN-MILD (1-4), (Reported) Atenolol 25 Mg Tablet, 25 MG PO DAILY, (Reported) Clopidogrel Bisulfate 75 Mg Tablet, 75 MG PO DAILY, (Reported) Donepezil HCl 5 Mg Tablet, 5 MG PO HS, (Reported) Escitalopram Oxalate 20 Mg Tablet, 10 MG PO DAILY, (Reported) TAKES (20MG) TABS Furosemide 40 Mg Tablet, 40 MG PO DAILY, (Reported) Insulin Detemir 100 Unit/1 Ml Insuln.pen, 30 UNITS SC HS, (Reported) Levothyroxine Sodium 50 Mcg Tablet, 50 MCG PO DAILY, (Reported) Losartan Potassium 100 Mg Tablet, 100 MG PO DAILY, (Reported) [place] 3 Polyunsat Fatty Acids 1,000 Mg Cap, 1,000 MG PO DAILY, (Reported) Potassium Chloride 20 Meq Tab.er.prt, 20 MEQ PO DAILY, (Reported) Rabeprazole Sodium 20 Mg Tablet.dr, 20 MG PO DAILY, (Reported) Vit A/Vit C/Vit E/Zinc/Copper 1 Each Tablet, 1 EACH PO DAILY, (Reported) Patient Home Medication List Home Medication List Reviewed: Yes Review of Systems Review of Systems Constitutional: see HPI; No chills, No fever Eyes: Blurred Vision; Denies Pain Ears, Nose, Mouth, Throat: no symptoms reported Respiratory: no symptoms reported Cardiovascular: No chest pain, No edema Gastrointestinal: No abdominal pain, No nausea, No vomiting Genitourinary: see HPI Musculoskeletal: No back pain, No muscle pain Skin: no symptoms reported Psychiatric/Neurological: See HPI All Other Systems Reviewed Negative Unless Noted: Yes Past Mfwbefc-Ckgopf-Sqgxkm Hx Past Med/Social Hx: Reviewed Nursing Past Med/Soc Hx Patient Social History Alcohol Use: Denies Use Smoking Status: Never a Smoker 2nd Hand Smoke Exposure: No Recent Hopitalizations: No Immunizations Up To Date Tetanus Booster (TDap): Unknown PED Vaccines UTD: Yes Date of Pneumonia Vaccine: Nov 19, 2019 Date of Influenza Vaccine: Nov 19, 2019 Seasonal Allergies Seasonal Allergies: No Past Medical History Surgeries: Yes Appendectomy, Hysterectomy, Orthopedic Respiratory: Yes Sleep Apnea Cardiac: Yes High Cholesterol, Hypertension Neurological: Yes (SCIATICA, FIBROMYALGIA) Reproductive Disorders: No Genitourinary: No Gastrointestinal: Yes Gastroesophageal Reflux Musculoskeletal: Yes Arthritis Endocrine: Yes HEENT: No Cancer: No Psychosocial: Yes Depression Integumentary: No Blood Disorders: No Family Medical History Reviewed Nursing Family Hx Patient reports no known family medical history. No Pertinent Family Hx Physical Exam Vital Signs Capillary Refill : Height, Weight, BMI Height: 5'2.00" Weight: 190lbs. 0.0oz. [id number]; 26.48 BMI Method:Stated General Appearance: WD/WN, no apparent distress HEENT: PERRL/EOMI, pharynx normal Neck: full range of motion, supple Respiratory: lungs clear, normal breath sounds Cardiovascular: regular rate, rhythm, no murmur Peripheral Pulses: 2+ Dorsalis Pedis (R), 2+ Left Dors-Pedis (L), 2+ Radial Pulses (R), 2+ Radial Pulses (L) Gastrointestinal: non tender, soft Back: normal inspection, no CVA tenderness, no vertebral tenderness Extremities: non-tender, normal inspection Neurologic/Psychiatric: alert, oriented x 3 () Crainal Nerves: normal hearing, normal speech, PERRL Coordination/Gait: other (Fxnozq-iw-bjsv slightly discoordinated bilateral) Motor/Sensory: no motor deficit, no pronator drift, sensory deficit (Reports slightly decreased sensation to the right face, right arm and right leg) Skin: normal color, warm/dry Progress/Results/Core Measures Results/Orders Lab Results Laboratory Tests Test 07/09/20 10:59 07/09/20 11:03 07/09/20 11:56 Range/Units Glucometer 148 H 70-110 MG/DL White Blood Count 7.2 4.3-11.0 10^3/uL Red Blood Count 4.55 3.80-5.11 10^6/uL Hemoglobin 12.8 11.5-16.0 g/dL Hematocrit 39 35-52 % Mean Corpuscular Volume 86 80-99 fL Mean Corpuscular Hemoglobin 28 25-34 pg Mean Corpuscular Hemoglobin Concent 33 32-36 g/dL Red Cell Distribution Width 12.4 10.0-14.5 % Platelet Count 249 130-400 10^3/uL Mean Platelet Volume 9.6 9.0-12.2 fL Immature Granulocyte % (Auto) 0 % Neutrophils (%) (Auto) 75 42-75 % Lymphocytes (%) (Auto) 15 12-44 % Monocytes (%) (Auto) 9 0-12 % Eosinophils (%) (Auto) 1 0-10 % Basophils (%) (Auto) 1 0-10 % Neutrophils # (Auto) 5.4 1.8-7.8 10^3/uL Lymphocytes # (Auto) 1.1 1.0-4.0 10^3/uL Monocytes # (Auto) 0.6 0.0-1.0 10^3/uL Eosinophils # (Auto) 0.1 0.0-0.3 10^3/uL Basophils # (Auto) 0.1 0.0-0.1 10^3/uL Immature Granulocyte # (Auto) 0.0 0.0-0.1 10^3/uL Prothrombin Time 13.3 12.2-14.7 SEC INR Comment 1.0 0.8-1.4 Activated Partial Thromboplast Time 26 24-35 SEC D-Dimer 0.62 H 0.00-0.49 UG/ML Sodium Level 140 135-145 MMOL/L Potassium Level 4.2 3.6-5.0 MMOL/L Chloride Level 103 98-107 MMOL/L Carbon Dioxide Level 29 21-32 MMOL/L Anion Gap 8 5-14 MMOL/L Blood Urea Nitrogen 14 7-18 MG/DL Creatinine 0.95 0.60-1.30 MG/DL Estimat Glomerular Filtration Rate 56 BUN/Creatinine Ratio 15 Glucose Level 162 H 70-105 MG/DL Calcium Level 9.3 8.5-10.1 MG/DL Corrected Calcium 9.3 8.5-10.1 MG/DL Total Bilirubin 0.7 0.1-1.0 MG/DL Aspartate Amino Transf (AST/SGOT) 12 5-34 U/L Alanine Aminotransferase (ALT/SGPT) 10 0-55 U/L Alkaline Phosphatase 65 40-136 U/L Troponin I < 0.028 <0.028 NG/ML Total Protein 6.3 L 6.4-8.2 GM/DL Albumin 4.0 3.2-4.5 GM/DL Urine Color YELLOW Urine Clarity CLEAR Urine pH 6.0 5-9 Urine Specific [place] 1.010 L 1.016-1.022 Urine Protein NEGATIVE NEGATIVE Urine Glucose (UA) NEGATIVE NEGATIVE Urine Ketones NEGATIVE NEGATIVE Urine Nitrite NEGATIVE NEGATIVE Urine Bilirubin NEGATIVE NEGATIVE Urine Urobilinogen 0.2 < = 1.0 MG/DL Urine Leukocyte Esterase TRACE H NEGATIVE Urine RBC (Auto) NEGATIVE NEGATIVE Urine RBC NONE /HPF Urine WBC 0-2 /HPF Urine Squamous Epithelial Cells 0-2 /HPF Urine Crystals NONE /LPF Urine Bacteria NEGATIVE /HPF Urine Casts NONE /LPF Urine Mucus NEGATIVE /LPF Urine Culture Indicated NO My Orders Orders - CRISTINE YANCEY MD Cbc With Automated Diff (07/09/20 10:58) Protime With Inr (07/09/20 10:58) Partial Thromboplastin Time (07/09/20 10:58) Comprehensive Metabolic Panel (07/09/20 10:58) Fibrin Degradation Products (07/09/20 10:58) Troponin I (07/09/20 10:58) Ua Culture If Indicated (07/09/20 10:58) Chest 1 View, Ap/Pa Only (07/09/20 10:58) Ekg Tracing (07/09/20 10:58) Nothing By Mouth (07/09/20 Lunch) Accucheck Stat ONCE (07/09/20 10:58) Ed Iv/Invasive Line Start (07/09/20 10:58) Vital Signs Stroke Patient Q15M (07/09/20 10:58) Ct Head Wo-R/O Stroke (07/09/20 10:58) O2 (07/09/20 10:58) Intake & Output 06,14,22 (07/09/20 10:58) Monitor-Rhythm Ecg Trace Only (07/09/20 10:58) Dysphagia Screening Tool (07/09/20 10:58) Post Thrombolytic Adminstratio (07/09/20 10:58) Lipid Panel (07/10/20 06:00) Straight Cath For Spec.-Adult (07/09/20 11:16) Ed Iv/Invasive Line Start (07/09/20 13:23) Ns Iv 500 Ml (Sodium Chloride 0.9%) (07/09/20 13:30) Ns Iv 500 Ml (Sodium Chloride 0.9%) (07/09/20 13:15) Meclizine Tablet (Antivert Tablet) (07/09/20 14:45) Medications Given in ED Current Medications Medications Dose Ordered Sig/Alisa Route Start Time Stop Time Status Last Admin Dose Admin Meclizine HCl 25 mg ONCE ONCE PO 07/09/20 14:45 07/09/20 14:47 DC 07/09/20 15:31 25 MG Sodium Chloride 500 ml @ 0 mls/hr Q0M ONCE IV 07/09/20 13:30 07/09/20 13:31 DC 07/09/20 13:50 0 MLS/HR FSBG Bedside Testing Finger Stick Blood Glucose: 148 Progress Progress Note : Progress Note Seen and evaluated. Stroke protocol initiated. We will get straight cath UA. Monitor patient. 1315: Patient has no significant abnormalities noted on labs or CT. We will give normal saline 500 mL bolus and evaluate for continued dizziness. I did discuss with the patient and family regarding findings and they are reassured but still concerned about the dizziness and vision changes. Monitor patient. 1445: Meclizine 25 mg p.o. I did have long discussion with patient and family regarding disposition. Family is worried about her with respect to safety at home. Patient seems to be a little worried as well. She does have the right facial and body numbness with the right vision problems. Unsure about the longevity of the vision problems but it seems like that has been there for a while but the numbness is new as well as dizziness. She is not significantly better after the fluid bolus. I did discuss the case with Dr. Chakraborty and she accepts patient for admission, observation status with consideration for inpatient rehab on Saturday after MRI. This was discussed with the patient and family who agree. Initial ECG Impression Date: July 09, 2020 Initial ECG Impression Time: 10:52 Initial ECG Rate: 54 Initial ECG Rhythm: Normal Sinus Comment Sinus rhythm with atrial premature complex. Left bundle branch block. Left axis deviation. No evidence of ST elevation CA. Similar to previous of 15 August 2016. Interpreted by me. Diagnostic Imaging Diagonstic Imaging: Xray Plain Films/CT/US/NM/MRI: chest Comments [facility], [place] NAME: BELLA FREEDMAN [facility] REC#: [id number] PT STATUS: REG ER : 1935 PHYSICIAN: CRISTINE YANCEY MD ADMIT DATE: 07/09/20/ER Draft Date of Exam:07/09/20 CHEST 1 VIEW, AP/PA ONLY INDICATION: Weakness. Comparison made with prior study from January 182019. FINDINGS: There are chronic interstitial changes within the lungs which are likely age-related. There is no focal infiltrate or consolidation. There is no effusion. There is no pneumothorax. Heart size and mediastinal contours appear appropriate. Pulmonary vascularity normal without evidence of failure. IMPRESSION: Stable radiographic appearance of the chest. No acute cardiopulmonary process demonstrated. Dictated on workstation # [id number] Dict: 07/09/20 1132 Trans: 07/09/20 1145 [facility] [id number] Interpreted by: LELA ARORA MD Electronically signed by: Diagonstic Imaging: CT Plain Films/CT/US/NM/MRI: head Comments [facility] [place] NAME: BELLA FREEDMAN REC#: [id number] PT STATUS: REG ER : 1935 PHYSICIAN: CRSITINE YANCEY MD ADMIT DATE: 07/09/20/ER Draft Date of Exam:07/09/20 CT HEAD WO-R/O STROKE PROCEDURE: CT head wo r/o stroke. TECHNIQUE: Multiple contiguous axial images were obtained through the brain without the use of intravenous contrast. Auto Exposure Controls were utilized during the CT exam to meet ALARA standards for radiation dose reduction. INDICATION: Suspected stroke. Neurological deficits. Comparison is made with the prior CT examination from January 182019. FINDINGS: Age-related global volume loss is again demonstrated. By CT imaging there are no findings of new territorial loss of sanchez-white differentiation or evidence of abnormal low density in the basal ganglia or sandra. There is no evidence of hemorrhage. There is no intracranial mass effect or shift. There is no hydrocephalus. There is no abnormal extra-axial fluid collection. The basilar cisterns appear patent. There are advanced atherosclerotic calcifications present at the skull base particularly within the carotid siphons. There are no findings of an asymmetric focal hyperdense blood vessel demonstrated. The mastoids appear clear. The paranasal sinuses demonstrate some minimal mucosal thickening in the ethmoids without air-fluid level. Orbital contents unremarkable. IMPRESSION: 1. Age-related global volume loss without CT evidence of new loss of sacnhez-white differentiation. 2. No findings of hemorrhage, mass effect or hydrocephalus. 3. Atherosclerosis without evidence of a focal hyperdense blood vessel. Dictated on workstation # [id number] Dict: 07/09/20 1130 Trans: 07/09/20 1142 [facility] [id number] Interpreted by: LELA ARORA MD Electronically signed by: Departure Communication (Admissions) Time/Spoke to Admitting Phy: 14:45 Impression Primary Impression: Dizziness Additional Impression: Right sided numbness Disposition: ADMITTED INPATIENT Condition: Stable Admissions Decision to Admit Reason: Admit from ER (General) Decision to Admit/Date: July 09, 2020 Time/Decision to Admit Time: 14:45 Departure-Patient Inst. Referrals: ELLI ALMONTE MD (PCP/Family) Primary Care Physician CRISTINE YANCEY MD July 09, 2020 11:24
[2020-07-09 11:25] LABS: CARBON DIOXIDE 29 MMOL/L (21-32); FIBRIN DEGRADATION PRODUCTS 0.62 UG/ML (0.00-0.49); PROTHROMBIN TIME PATIENT 13.3 SEC (12.2-14.7)
[2020-07-09 11:26] LABS: BILIRUBIN,TOTAL 0.7 MG/DL (0.1-1.0)
[2020-07-09 11:27] LABS: ALKALINE PHOSPHATASE 65 U/L (40-136)
[2020-07-09 11:28] LABS: CREATININE SERUM 0.95 MG/DL (0.60-1.30); GFR ESTIMATED 56
[2020-07-09 11:29] LABS: BUN/CREATININE RATIO 15
[2020-07-09 11:31] LABS: ALANINE AMINOTRANSFERASE 10 U/L (0-55)
--- NOTE | 2020-07-09 11:42 | Diagnostic Imaging Report ---
PROCEDURE: CT head wo r/o stroke. TECHNIQUE: Multiple contiguous axial images were obtained through the brain without the use of intravenous contrast. Auto Exposure Controls were utilized during the CT exam to meet ALARA standards for radiation dose reduction. INDICATION: Suspected stroke. Neurological deficits. Comparison is made with the prior CT examination from January 182019. FINDINGS: Age-related global volume loss is again demonstrated. By CT imaging there are no findings of new territorial loss of sanchez-white differentiation or evidence of abnormal low density in the basal ganglia or sandra. There is no evidence of hemorrhage. There is no intracranial mass effect or shift. There is no hydrocephalus. There is no abnormal extra-axial fluid collection. The basilar cisterns appear patent. There are advanced atherosclerotic calcifications present at the skull base particularly within the carotid siphons. There are no findings of an asymmetric focal hyperdense blood vessel demonstrated. The mastoids appear clear. The paranasal sinuses demonstrate some minimal mucosal thickening in the ethmoids without air-fluid level. Orbital contents unremarkable. IMPRESSION: 1. Age-related global volume loss without CT evidence of new loss of sanchez-white differentiation. 2. No findings of hemorrhage, mass effect or hydrocephalus. 3. Atherosclerosis without evidence of a focal hyperdense blood vessel. Dictated by: Dictated on workstation # [id number]
--- NOTE | 2020-07-09 11:45 | Diagnostic Imaging Report ---
INDICATION: Weakness. Comparison made with prior study from January 182019. FINDINGS: There are chronic interstitial changes within the lungs which are likely age-related. There is no focal infiltrate or consolidation. There is no effusion. There is no pneumothorax. Heart size and mediastinal contours appear appropriate. Pulmonary vascularity normal without evidence of failure. IMPRESSION: Stable radiographic appearance of the chest. No acute cardiopulmonary process demonstrated. Dictated by: Dictated on workstation # [id number]
[2020-07-09 12:01] LABS: BILIRUBIN,URINE NEGATIVE (NEGATIVE); CLARITY,URINE CLEAR; COLOR,URINE YELLOW; GLUCOSE, URINE (UA) NEGATIVE (NEGATIVE); KETONES,URINE NEGATIVE (NEGATIVE); LEUKOCYTE ESTERASE ,URINE TRACE (NEGATIVE); NITRITE,URINE NEGATIVE (NEGATIVE); PROTEIN,URINE NEGATIVE (NEGATIVE)
[2020-07-09 12:07] LABS: BACTERIA,URINE NEGATIVE /HPF; SQUAMOUS EPITHELIAL CELL,UR 0-2 /HPF; WBC,URINE 0-2 /HPF
[2020-07-09] MEDS ORDERED: NS IV 500 ML 500 ML ONE (13:15)
[2020-07-09] MEDS ORDERED: NS IV 500 ML 500 ML IV ONE (13:30)
[2020-07-09] MEDS ORDERED: MECLIZINE 25 MG (ANTIVERT) TAB PO ONE (14:45)
[2020-07-09] MEDS ORDERED: CATHETER FLUSH 10 ML SYR IV PRN (16:15)
[2020-07-09] MEDS ORDERED: MECLIZINE 25 MG (ANTIVERT) TAB PO PRN (16:15)
[2020-07-09] MEDS ORDERED: ONDANSETRON 4 MG/2 ML (SDV) Z0FRAN IV PRN (16:15)
[2020-07-09] MEDS: NS IV 1000 ML 1,000 ML IV SCH (17:19)
[2020-07-09 19:13] VITALS: BP 135/60
[2020-07-09 19:25] VITALS: BP 135/60
[2020-07-09] MEDS ORDERED: RT-ALBUTEROL/IPRATROPIUM 3 ML (DUONEB) VIAL INH PRN (19:30)
[2020-07-09] MEDS ORDERED: ACETAMINOPHEN 500 MG PO PRN (20:30)
[2020-07-09 23:18] VITALS: BP 138/59
[2020-07-10 03:45] VITALS: BP 138/64
[2020-07-10 04:57] LABS: BASOPHILS % (AUTO) 1 % (0-10); EOSINOPHILS # (AUTO) 0.2 10^3/uL (0.0-0.3); EOSINOPHILS % (AUTO) 2 % (0-10); HEMATOCRIT 36 % (35-52); HEMOGLOBIN 11.7 g/dL (11.5-16.0); LYMPHOCYTES # (AUTO) 1.6 10^3/uL (1.0-4.0); LYMPHOCYTES % (AUTO) 21 % (12-44); MEAN CORPUSCULAR HEMOGLOBIN 28 pg (25-34); MEAN CORPUSCULAR HGB CONC 32 g/dL (32-36); MEAN CORPUSCULAR VOLUME 88 fL (80-99); MEAN PLATELET VOLUME 10.1 fL (9.0-12.2); MONOCYTES # (AUTO) 0.8 10^3/uL (0.0-1.0); MONOCYTES % (AUTO) 11 % (0-12); NEUTROPHILS # (AUTO) 4.8 10^3/uL (1.8-7.8); NEUTROPHILS % (AUTO) 65 % (42-75); PLATELET COUNT 223 10^3/uL (130-400); WHITE BLOOD COUNT 7.4 10^3/uL (4.3-11.0)
[2020-07-10 05:20] LABS: BUN/CREATININE RATIO 18; CALCIUM 8.3 MG/DL (8.5-10.1); CARBON DIOXIDE 27 MMOL/L (21-32); CHLORIDE 107 MMOL/L (98-107); CHOLESTEROL 231 MG/DL (< 200); CREATININE SERUM 0.85 MG/DL (0.60-1.30); GFR ESTIMATED > 60; GLUCOSE 114 MG/DL (70-105); HDL CHOLESTEROL 30 MG/DL (40-60); POTASSIUM 3.8 MMOL/L (3.6-5.0); SODIUM 140 MMOL/L (135-145); TRIGLYCERIDES 138 MG/DL (<150); VLDL CHOLESTEROL 28 MG/DL (5-40)
[2020-07-10] MEDS: LEVOTHYROXINE 50 MCG (LEVOTHROID) TAB PO SCH (05:40)
[2020-07-10] MEDS: NS IV 1000 ML 1,000 ML IV SCH (05:40)
[2020-07-10] MEDS: KCL 20 MEQ TAB (K-DUR) PO SCH (08:45)
[2020-07-10] MEDS: PANTOPRAZOLE 20 MG TABLET (PROTONIX) PO SCH (08:45)
[2020-07-10] MEDS: ACETAMINOPHEN 325 MG TABLET PO PRN ×2 (08:45→23:30)
[2020-07-10] MEDS: CLOPIDOGREL 75 MG (PLAVIX) TABLET PO SCH (08:45)
[2020-07-10] MEDS: FUROSEMIDE 40 MG (LASIX) TAB PO SCH (08:45)
[2020-07-10 08:47] VITALS: BP 180/70
--- NOTE | 2020-07-10 10:31 | History & Physical ---
History of Present Illness HPI/Chief Complaint Pt is an 85yoCF with a PMH of dementia, HTN, IDDMII, hypothyroidism who presented to the ER due to dizziness and fall. She states that she was at home after having recently been discharged from a SNF in [place] and felt dizzy and almost fell but caught herself on her furniture. Her daughter in law checked on her and brought in her in for evaluation. CT head was down to rule out stroke in the ER and was negative and despite IVF her dizziness persistent so she was admitted for observation. This morning she reports she is feeling well and her weakness has resolved completely. She states her dizziness is mostly gone as well but she has not yet ambulated and she would like to. Her only other concern is that she has some right leg pain that is chronic where she had a previous orthopedic surgery. Source: patient Date Seen 07/10/20 Attending Physician Amita Yap MD PCP Meluqiades Zhong MD Referring Physician Date of Admission July 09, 2020 at 15:23 Home Medications & Allergies Home Medications Reviewed patient Home Medication Reconciliation performed by pharmacy medication reconciliations oxygen therapy technician and/or nursing. Patients Allergies have been reviewed. Allergies Allergies Coded Allergies Cephalexin Monohydrate (Unverified Allergy, Unknown, RASH- tolerates Rocephin, 01/21/20) benazepril HCl (Unverified Allergy, Unknown, COUGH, 08/15/16) hydrochlorothiazide (Unverified Allergy, Unknown, ITCHING, 08/15/16) irbesartan (Unverified Allergy, Unknown, RASH, 08/15/16) pantoprazole sodium (Unverified Allergy, Unknown, N/V, 08/15/16) sulfamethoxazole (Unverified Allergy, Unknown, RASH, 08/15/16) trimethoprim (Unverified Allergy, Unknown, RASH, 08/15/16) Past Zcpgiyi-Tmhpka-Fdjpiw Hx Past Med/Social Hx: Reviewed Nursing Past Med/Soc Hx Patient Social History Alcohol Use: Denies Use Recreational Drug Use: No Smoking Status: Never a Smoker 2nd Hand Smoke Exposure: No Recent Foreign Travel: No Contact w/other who traveled: No Recent Hopitalizations: No Recent Infectious Disease Expo: No Immunizations Up To Date Tetanus Booster (TDap): Unknown Pediatric: Yes Date of Pneumonia Vaccine: Nov 19, 2019 Date of Influenza Vaccine: Nov 19, 2019 Seasonal Allergies Seasonal Allergies: No Past Medical History Surgeries: Appendectomy, Hysterectomy, Orthopedic Cardiac: High Cholesterol, Hypertension Reproductive: No Gastrointestinal: Gastroesophageal Reflux Musculoskeletal: Arthritis Psychosocial: Depression History of Blood Disorders: No Family History Reviewed Nursing Family Hx Patient reports no known family medical history. No Pertinent Family Hx Review of Systems Constitutional: No chills, No fever, No malaise EENTM: No blurred vision, No double vision, No eye pain Respiratory: No cough, No short of breath Cardiovascular: No chest pain, No edema, No palpitations Gastrointestinal: No abdominal pain, No constipation, No diarrhea, No nausea, No vomiting Genitourinary: No dysuria, No frequency Musculoskeletal: no symptoms reported Skin: no symptoms reported Psychiatric/Neurological: See HPI, Other Physical Exam Physical Exam Vital Signs Vital Signs - First Documented 07/09/20 10:52 Temp 36.4 Pulse 86 Resp 16 B/P (MAP) 126/87 (100) Pulse Ox 98 O2 Delivery Room Air Capillary Refill : Less Than 3 Seconds Height, Weight, BMI Height: 5'2.00" Weight: 190lbs. 0.0oz. 86.331588ff; 22.77 BMI Method:Stated General Appearance: No Apparent Distress, WD/WN HEENT: PERRL/EOMI, Moist Mucous Membranes; No Scleral Icterus (L), No Scleral Icterus (R) Neck: Normal Inspection, Supple Respiratory: Lungs Clear, No Respiratory Distress Cardiovascular: Regular Rate, Rhythm, No Murmur Gastrointestinal: Normal Bowel Sounds, Non Tender, Soft Extremity: No Calf Tenderness, No Pedal Edema Neurologic/Psychiatric: Alert, Oriented x3, Normal Mood/Affect; No Aphasia, No Facial Droop, No Motor Weakness Skin: Normal Color, Warm/Dry Results Results/Procedures Labs Laboratory Tests 07/09/20 11:03 07/10/20 04:18 Patient resulted labs reviewed. Imaging: Reviewed Imaging Report Imaging [facility], [place] NAME: BELLA FREEDMAN [facility] REC#: [id number] PT STATUS: REG ER : 1935 PHYSICIAN: CRISTINE YANCEY MD ADMIT DATE: 07/09/20/ER Signed Date of Exam:07/09/20 CT HEAD WO-R/O STROKE PROCEDURE: CT head wo r/o stroke. TECHNIQUE: Multiple contiguous axial images were obtained through the brain without the use of intravenous contrast. Auto Exposure Controls were utilized during the CT exam to meet ALARA standards for radiation dose reduction. INDICATION: Suspected stroke. Neurological deficits. Comparison is made with the prior CT examination from January 182019. FINDINGS: Age-related global volume loss is again demonstrated. By CT imaging there are no findings of new territorial loss of sanchez-white differentiation or evidence of abnormal low density in the basal ganglia or sandra. There is no evidence of hemorrhage. There is no intracranial mass effect or shift. There is no hydrocephalus. There is no abnormal extra-axial fluid collection. The basilar cisterns appear patent. There are advanced atherosclerotic calcifications present at the skull base particularly within the carotid siphons. There are no findings of an asymmetric focal hyperdense blood vessel demonstrated. The mastoids appear clear. The paranasal sinuses demonstrate some minimal mucosal thickening in the ethmoids without air-fluid level. Orbital contents unremarkable. IMPRESSION: 1. Age-related global volume loss without CT evidence of new loss of sanchez-white differentiation. 2. No findings of hemorrhage, mass effect or hydrocephalus. 3. Atherosclerosis without evidence of a focal hyperdense blood vessel. Dictated by: Dictated on workstation # [id number] Dict: 07/09/20 1130 Trans: 07/09/20 1348 [facility] [id number] Interpreted by: LELA ARORA MD Electronically signed by: LELA ARORA MD 07/09/20 1348 [facility], [place] NAME: BELLA FREEDMAN [facility] REC#: [id number] PT STATUS: REG ER : 1935 PHYSICIAN: CRISTINE YANCEY MD ADMIT DATE: 07/09/20/ER Signed Date of Exam:07/09/20 CHEST 1 VIEW, AP/PA ONLY INDICATION: Weakness. Comparison made with prior study from January 182019. FINDINGS: There are chronic interstitial changes within the lungs which are likely age-related. There is no focal infiltrate or consolidation. There is no effusion. There is no pneumothorax. Heart size and mediastinal contours appear appropriate. Pulmonary vascularity normal without evidence of failure. IMPRESSION: Stable radiographic appearance of the chest. No acute cardiopulmonary process demonstrated. Dictated by: Dictated on workstation # [id number] Dict: 07/09/20 1132 Trans: 07/09/20 1346 [facility] [id number] Interpreted by: LELA ARORA MD Electronically signed by: LELA ARORA MD 07/09/20 2372 Assessment/Plan Admission Diagnosis Dizziness Admission Status: Observation Assessment and Plan Dizziness Transient right sided weakness Symptoms mostly resolved now, likely TIA MRI ordered for AM PT/OT Pt and family request IRF eval right leg pain Chronic, has request XR before but was told she is not a surgical candidate so never got XR Requesting XR again today so will get just to evaluate hardware placement HTN Hypothyroidism Dementia No acute needs, continue home meds Diagnosis/Problems Diagnosis/Problems (1) Essential (primary) hypertension (2) Depression (3) Dementia (4) Insulin dependent diabetes mellitus (5) Hypothyroidism (6) HLD (hyperlipidemia) (7) Dizziness Status: Acute (8) Right sided numbness Status: Acute (9) Compression fracture of L2 Status: Acute AMITA YAP MD July 10, 2020 10:31
--- NOTE | 2020-07-10 11:22 | Diagnostic Imaging Report ---
INDICATION: Right leg pain. FINDINGS: The patient is status post a plate and screw fixation of the distal right fibula. Alignment of the fibula anatomic. The tibia demonstrates no cortical disruption or acute process. Ankle alignment unremarkable. Alignment of the knee appears appropriate. There are advanced background features of right knee osteoarthritis. IMPRESSION: 1. Status post previous distal right fibular open reduction internal fixation. There is no hardware complication. Alignment of the right lower extremity is normal. There are arthritic changes at the knee and ankle but alignment appear appropriate. No acute abnormalities evident. Dictated by: Dictated on workstation # [id number]
[2020-07-10 15:22] VITALS: BP 127/57
[2020-07-11 00:01] VITALS: BP 148/82
[2020-07-11] MEDS: LEVOTHYROXINE 50 MCG (LEVOTHROID) TAB PO SCH (06:34)
[2020-07-11 07:40] VITALS: BP 178/74
[2020-07-11] MEDS: FUROSEMIDE 40 MG (LASIX) TAB PO SCH (08:52)
[2020-07-11] MEDS: KCL 20 MEQ TAB (K-DUR) PO SCH (08:52)
[2020-07-11] MEDS: PANTOPRAZOLE 20 MG TABLET (PROTONIX) PO SCH (08:52)
[2020-07-11] MEDS: CLOPIDOGREL 75 MG (PLAVIX) TABLET PO SCH (08:52)
[2020-07-11] MEDS ORDERED: INSU100V5 SQ (09:46)
[2020-07-11] MEDS ORDERED: BETA1TAB15 PO (09:46)
--- NOTE | 2020-07-11 12:30 | Diagnostic Imaging Report ---
PROCEDURE: MR imaging of the brain without contrast. TECHNIQUE: Multiplanar, multisequence MR imaging of the brain was performed without contrast. INDICATION: Right-sided weakness. Vision loss. Numbness. Evaluate for stroke. COMPARISON: 07/09/2020. Findings: No acute ischemia, mass, or hemorrhage. Scattered chronic microvascular disease in the periventricular and subcortical white matter. The ventricles and cortical sulci are mildly prominent. The basilar cisterns are symmetric and unremarkable. The sellar and suprasellar regions have a normal appearance. The brainstem and posterior fossa are unremarkable. Mild mucosal thickening seen in the paranasal sinuses. The mastoid air cells demonstrate normal signal characteristics. The globes and orbits are symmetric and unremarkable. The scalp and calvarium have a normal appearance. Impression: 1. No acute ischemia, mass, or hemorrhage. 2. Scattered chronic microvessel disease and generalized parenchymal volume loss. Dictated by: Dictated on workstation # [id number]
--- NOTE | 2020-07-11 12:57 | Progress Note - Hospitalist ---
Subjective HPI/CC On Admission Date Seen by Provider: July 11, 2020 Time Seen by Provider: 09:25 Pt is an 85yoCF with a PMH of dementia, HTN, IDDMII, hypothyroidism who presented to the ER due to dizziness and fall. She states that she was at home after having recently been discharged from a SNF in [place] and felt dizzy and almost fell but caught herself on her furniture. Her daughter in law checked on her and brought in her in for evaluation. CT head was down to rule out stroke in the ER and was negative and despite IVF her dizziness persistent so she was admitted for observation. This morning she reports she is feeling well and her weakness has resolved completely. She states her dizziness is mostly gone as well but she has not yet ambulated and she would like to. Her only other concern is that she has some right leg pain that is chronic where she had a previous orthopedic surgery. Subjective/Events-last exam She is feeling better today. She has no complaints or concerns. Objective Exam Vital Signs Vital Signs Date Time Temp Pulse Resp B/P (MAP) Pulse Ox O2 Delivery O2 Flow Rate FiO2 07/11/20 11:37 96 Room Air 07/11/20 07:40 36.8 65 18 178/74 (108) Capillary Refill : Less Than 3 Seconds General Appearance: No Apparent Distress, WD/WN Respiratory: Lungs Clear, Normal Breath Sounds, No Respiratory Distress Cardiovascular: Regular Rate, Rhythm, No Edema, No Murmur Gastrointestinal: Normal Bowel Sounds, Non Tender, Soft Extremity: Normal Inspection, Non Tender, No Pedal Edema Neurologic/Psychiatric: Alert, Oriented x3, No Motor/Sensory Deficits, Normal Mood/Affect Skin: Normal Color, Warm/Dry Results/Procedures Lab Patient resulted labs reviewed. Imaging: Reviewed Imaging Report Assessment/Plan Assessment and Plan Assess & Plan/Chief Complaint Dizziness Transient right sided weakness Possible TIA Symptoms mostly resolved now, likely TIA MRI with no acute abnormalities PT/OT IRU evaluation Continue Plavix Add statin Right leg pain XR showed no acute abnormalities HTN Hypothyroidism Dementia No acute needs, continue home meds DVT prophylaxis: Lovenox Diagnosis/Problems Diagnosis/Problems (1) Debility Status: Acute (2) Dizziness Status: Acute (3) Right sided numbness Status: Acute (4) Fall Status: Acute (5) Dementia Status: Chronic SHANTA REDDY MD July 11, 2020 12:57
[2020-07-11 15:25] VITALS: BP 152/67
[2020-07-12 00:53] VITALS: BP 110/55
[2020-07-12] MEDS: LEVOTHYROXINE 50 MCG (LEVOTHROID) TAB PO SCH (06:03)
[2020-07-12 08:00] VITALS: BP 130/60
[2020-07-12] MEDS: CLOPIDOGREL 75 MG (PLAVIX) TABLET PO SCH (08:37)
[2020-07-12] MEDS: ACETAMINOPHEN 325 MG TABLET PO PRN (08:37)
[2020-07-12] MEDS: KCL 20 MEQ TAB (K-DUR) PO SCH (08:37)
[2020-07-12] MEDS: FUROSEMIDE 40 MG (LASIX) TAB PO SCH (08:37)
[2020-07-12] MEDS: PANTOPRAZOLE 20 MG TABLET (PROTONIX) PO SCH (08:37)
--- NOTE | 2020-07-12 10:00 | Physical Therapy Evaluation ---
PT Evaluation-General Medical Diagnosis Admission Date July 09, 2020 at 15:23 Medical Diagnosis: dehydration/dizziness Onset Date: July 09, 2020 Therapy Diagnosis Therapy Diagnosis: debility/weakness Height/Weight Height (Feet): 5 Height (Inches): 2.00 Weight (Pounds): 190 Weight (Ounces): 0.0 Precautions Precautions/Isolations: Fall Prevention, Standard Precautions Referral Physician: Karthik Reason for Referral: Evaluation/Treatment Referral Comments verbal and written Medical History Pertinent Medical History: Arthritis, DM, Dementia, HTN Additional Medical History Recent SNF stay in [place] Current History ER secondary to right blurred vision and decreased right side sensation Reviewed History: Yes Social History Home: Single Level Current Living Status: Alone (with health aide) Entry Into Home: Stairs With Railing PT Steps Into Home: 7 Prior Prior Level of Function SCALE: Activities may be completed with or without assistive devices. 0-Govqydhklr-nzwamaf completes the activity by him/herself with no assistance from a helper. 5-Set-up or Clean-up Assistance-helper sets up or cleans up; patient completes activity. [place] assists only prior to or following the activity. 4-Supervision or Touching Assistance-helper provides verbal cues and/or touching/steadying and/or contact guard assistance as patient completes activit y. Assistance may be provided throughout the activity or intermittently. 3-Partial/Moderate Assistance-helper does LESS THAN HALF the effort. [place] lifts, holds or supports trunk or limbs, but provides less than half the effort. 2-Substantial/Maximal Assistance-helper does MORE THAN HALF the effort. [place] lifts or holds trunk or limbs and provides more than half the effort. 5-Bthktrhkq-cabodj does ALL the effort. Patient does none of the effort to complete the activity. Or, the assistance of 2 or more helpers is required for the patient to complete the activity. If activity was not attempted, code reason: 7-Patient Refused. 9-Not Applicable-not attempted and the patient did not perform the activity before the current illness, exacerbation or injury. 10-Not Attempted due to Environmental Limitations-(lack of equipment, weather restraints, etc.). 88-Not Attempted due to Medical Conditions or Safety Concerns. Bed Mobility: 6 Transfers (B,C,W/C): 6 Gait: 6 Stairs: 6 Indoor Mobility (Ambulation): Independent Stairs: Independent Prior Devices Use: Walker (PRN per patient report) PT Evaluation-Current Subjective Patient states she is going home with home health. Agrees to PT. Objective Patient Orientation: Person, Time, Situation ROM/Strength ROM Lower Extremities bilateral LE WFL Strength Lower Extremities 4-/5 grossly bilateral LE Integumentary/Posture Integumentary refer to nursing notes Bowel Incontinence: No Bladder Incontinence: No Posture WFL Neuromuscular (Tone, Coordination, Reflexes) grossly intact Sensory Vision: Wears Glasses Hearing: Functional Sensation Right Lower Extremit: Intact Sensation Left Lower Extremity: Intact Transfers Roll Left to Right (QC): 6 Sit to Lying (QC): 6 Lying to Sitting/Side of Bed(Q: 6 Sit to Stand (QC): 6 Chair/Kkz-kx-Jogxz Xfer(QC): 6 Gait Does the Patient Walk?: Yes Mode of Locomotion: Walk Anticipated Mode of Locomotion: Walk Walk 10 feet (QC): 5 Walk 50 ft with 2 Turns(QC): 5 Walk 150 ft (QC): 5 Walking 10ft/uneven surface-QC: 5 Distance: 300' x 2 Gait Assistive Device: FWW Comments/Gait Description NBOS with functional gait sequence with no focal deficit Wheelchair Training Does the Pt Use a Wheelchair?: No Stairs #of Steps: 12 1 Step (curb) (QC): 4 (SBA) 4 Steps (QC): 4 (SBA) 12 Steps (QC): 4 (SBA) Balance Sitting Static: Normal Sitting Dynamic: Normal Standing Static: Good Standing Dynamic: Good Picking up an Object (QC): 6 (seated position) Assessment/Needs 85 y.o. female, is currently at [facility] independent to independent [facility] with all gross motor skills. Per patient and physician, patient will dismiss to home with home health. Rehab Potential: Fair PT Plan Treatment/Plan Treatment Plan: Discontinue PT Treatment Duration: July 12, 2020 Frequency: 1 time per week Estimated Hrs Per Day: .25 hour per day Patient and/or Family Agrees t: Yes Time/GCodes Time In: 920 Time Out: 930 Total Billed Treatment Time: 10 Total Billed Treatment 1 visit EVModC 10 min JAYLIN GUERRA PT July 12, 2020 10:00
--- NOTE | 2020-07-12 10:33 | Occupational Therapy Eval ---
OT Evaluation-General/PLF Medical Diagnosis Admission Date July 09, 2020 at 15:23 Medical Diagnosis: dehydration/dizziness Onset Date: July 09, 2020 Therapy Diagnosis Therapy Diagnosis: weakness Height/Weight Height (Feet): 5 Height (Inches): 2.00 Weight (Pounds): 190 Weight (Ounces): 0.0 Precautions Precautions/Isolations: Fall Prevention, Standard Precautions Referral Physician: Manuel Referral Reason: Evaluation/Treatment Medical History Pertinent Medical History: Arthritis, DM, Dementia, HTN Current History ER secondary to right blurred vision and decreased right side sensation Social History Home: Single Level Current Living Status: Alone (with health aide) Entry Into Home: Stairs With Railing Steps Into Home: 7 ADL-Prior Level of Function SCALE: Activities may be completed with or without assistive devices. 8-Tocvvlsfoa-bcnjutn completes the activity by him/herself with no assistance from a helper. 5-Set-up or Clean-up Assistance-helper sets up or cleans up; patient completes activity. [place] assists only prior to or following the activity. 4-Supervision or Touching Assistance-helper provides verbal cues and/or touching/steadying and/or contact guard assistance as patient completes activity. Assistance may be provided throughout the activity or intermittently. 3-Partial/Moderate Assistance-helper does LESS THAN HALF the effort. [place] lifts, holds or supports trunk or limbs, but provides less than half the effort. 2-Substantial/Maximal Assistance-helper does MORE THAN HALF the effort. [place] lifts or holds trunk or limbs and provides more than half the effort. 3-Cxtgucpex-kvjexz does ALL the effort. Patient does none of the effort to complete the activity. Or, the assistance of 2 or more helpers is required for the patient to complete the activity. If activity was not attempted, code reason: 7-Patient Refused. 9-Not Applicable-not attempted and the patient did not perform the activity before the current illness, exacerbation or injury. 10-Not Attempted due to Environmental Limitations-(lack of equipment, weather restraints, etc.). 88-Not Attempted due to Medical Conditions or Safety Concerns. ADL PLOF Comments Pt has home health aide 2-3 hours a day, they assist with medications, changing linens and trash, and are present when pt showers. Pt indicates she is able to shower herself as long as someone is there, IND with toileting and dressing. Pt does not cook, she orders food in or has family/friends that provide her food. Self Care: Needed Some Help Functional Cognition: Independent DME/Equipment: Bath Bench, Tub/Shower DME/Equipment Comments walker PRN OT Current Status Subjective Pt seated in recliner, agreeable to OT evaluation. Pt feels like she is at her PLOF, and feels ready to go home Mental Status/Objective Patient Orientation: Person, Place, Time, Situation, Normal For Age ADL-Treatment Eating (QC): 6 On/Off Footwear (QC): 6 Toileting Hygiene (QC): 6 Other Treatments Pt seated in recliner, agreeable to OT evaluation and tx. Pt provided information about PLOF and home set up. Pt states she feels like she is at her PLOF and is ready to go home. Pt completed footwear and toileting IND. Post tx, pt seated in recliner, call light in reach and all needs met. Education OT Patient Education: Correct positioning, Energy conservation, Modified ADL techniques, Progress toward Goal/Update tx plan, Purpose of tx/functional activities, Rehab process Teaching Recipient: Patient Teaching Methods: Discussion Response to Teaching: Verbalize Understanding OT Penitentiary Goals Penitentiary Goals 1=Demonstrate adherence to instructed precautions during ADL tasks. 2=Patient will verbalize/demonstrate understanding of assistive devices/modifications for ADL. 3=Patient will improve strength/tolerance for activity to enable patient to perform ADL's. OT Education/Plan Problem List/Assessment Assessment: No Skilled OT Needs ID'd No skilled OT services indicated at this time as pt is at PLOF Discharge Recommendations Plan/Recommendations: Discharge/Goals Met Treatment Plan/Plan of Care Patient would benefit from OT for education, treatment and training to promote independence in ADL's, mobility, safety and/or upper extremity function for ADL's. Plan of Care: ADL Retraining Treatment Duration: July 12, 2020 Frequency: 1 time per week (eval only) Rehab Potential: Fair Time/GCodes Start Time: 10:10 Stop Time: 10:24 Total Time Billed (hr/min): 14 Billed Treatment Time 1, HERBERTH GOSS OT July 12, 2020 10:33
--- NOTE | 2020-07-12 10:47 | Discharge Summary ---
Discharge Summary Reconcile Patient Problems Problems Reviewed?: Yes Instructions for Patient Via [facility] Sunglass, Assessment/Instructions Take medications as prescribed. Follow-up with your primary care physician. Return with worsening weakness or if you feel like you are getting worse. You are being set up with home health care. Physician to follow Patient: Farheen Discharge Diet for Home: Low Sodium Diet Hospital Course Date of Admission: July 09, 2020 at 15:23 Admission Diagnosis : Dizziness, right arm numbness Family Physician/Provider: Melquiades Zhong MD Date of Discharge: 07/12/20 Discharge Diagnosis: TIA Hospital Course: Roopa Hughes is an 85-year-old female who presented with dizziness and right arm numbness and was admitted with transient ischemic attack. She underwent a CT scan which showed no acute abnormalities. She underwent an MRI brain which showed no acute abnormalities including no acute stroke. She has a history of carotid stenosis. She was continued on Plavix. She has an intolerance to statins and also reports being unable to take any other cholesterol medications. Her symptoms resolved prior to discharge. She did have some ongoing weakness and was set up with home health care for ongoing therapies. She should follow- up with her primary care physician, Dr. Zhong. She may require referral to a vascular surgeon to evaluate for carotid vascular intervention. Labs and Pending Lab Test: Laboratory Tests 07/11/20 15:29: Glucometer 155H 07/11/20 20:53: Glucometer 176H 07/12/20 06:02: Glucometer 122H Home Meds Active Reported Preservision Areds Tablet (Vit A/Vit C/Vit E/Zinc/Copper) 1 Each Tablet 1 Each PO DAILY Levemir (Insulin Determir) 1,000 Units/10 Ml Soln 4 Units SQ DAILY Tylenol (Acetaminophen) 325 Mg Capsule 325-650 Mg PO Q8H PRN Escitalopram Oxalate 20 Mg Tablet 10 Mg PO HS TAKES (20MG) TABS Rabeprazole Sodium 20 Mg Tablet.dr 20 Mg PO DAILY Losartan Potassium 100 Mg Tablet 100 Mg PO DAILY Clopidogrel (Clopidogrel Bisulfate) 75 Mg Tablet 75 Mg PO DAILY Potassium Chloride 20 Meq Tab.er.prt 20 Meq PO DAILY Atenolol 25 Mg Tablet 25 Mg PO DAILY Furosemide 40 Mg Tablet 40 Mg PO DAILY Levothyroxine Sodium 50 Mcg Tablet 50 Mcg PO DAILY Patient Allergies: Coded Allergies: Cephalexin Monohydrate (Unverified Allergy, Unknown, RASH- tolerates Rocephin, 01/21/20) benazepril HCl (Unverified Allergy, Unknown, COUGH, 08/15/16) hydrochlorothiazide (Unverified Allergy, Unknown, ITCHING, 08/15/16) irbesartan (Unverified Allergy, Unknown, RASH, 08/15/16) pantoprazole sodium (Unverified Allergy, Unknown, N/V, 08/15/16) sulfamethoxazole (Unverified Allergy, Unknown, RASH, 08/15/16) trimethoprim (Unverified Allergy, Unknown, RASH, 08/15/16) Height (Feet): 5 Height (Inches): 2.00 Weight (Pounds): 190 Weight (Ounces): 0.0 Home Health Need/Face to Face Date of Face to Face: July 12, 2020 Clinical Findings: Generalized weakness and fatigue, Muscle weakness, Unsteady gait I have seen Pt [id number]: Yes Discharged To: Home Diagnosis/Conditions: TIA Carotid stenosis Debility Fall Problems/Diagnosis/Condition: (1) TIA (transient ischemic attack) (2) Fall (3) Debility Patient is Homebound due to: Cyndi fall risk due to instabilty, Muscle weakness Homebound Status Due to the above stated illness, injury or surgical procedure (medical condition or diagnosis) and associated clinical findings, the patient is homebound because of his/her inability to leave home except with aid of a supportive device and/or person AND leaving the home requires a considerable and taxing effort or is medically contraindicated. Pt req the following assistanc: Aid of another person, Cane, Walker Home Health Nursing Orders Home Health Services Order: Nursing Services, Intensivist-Evaluate & Treat, Physical Therapy-Evaluate & Treat Home Health Infusion Therapy Line Start Date: July 10, 2020 Therapy Orders Therapy Orders: OT (must have SN or PT order), Physical Therapy Therapy Specific Orders: Eval assistive deivces, Teach enviro modifications/safety, Gait training, Increase strength/endurance Certify Stmt I certify that this patient is under my care and that I, a nurse practitioner or a physician; a historian research assistant working with me, had a face to face encounter that - meets the physician face to face encounter requirements with this patient as dated. Discharge Physical Exam General: Alert, Oriented X3, Cooperative, No Acute Distress HEENT: Atraumatic, PERRLA, EOMI, Mucous Memb Moist/[place] Lungs: Clear to Auscultation, Normal Air Movement Heart: Regular Rate, Normal S1, Normal S2, No Murmurs Abdomen: Normal Bowel Sounds, Soft, No Tenderness Extremities: No Edema, No Tenderness/Swelling Skin: No Rashes, No Significant Lesion Neuro: Normal Speech, Normal Tone Psych/Mental Status: Mental Status NL, Mood NL SHANTA REDDY MD July 12, 2020 10:47
[2020-07-12 16:18] VITALS: BP 130/60
== END 2020-07-12 16:40 | disposition home or self-care (01) ==
LOC: EDUNIT# 10:38 → ER 10:39 → 4TH 15:23
PROVIDERS: ADMIT Family Medicine; ATTEND Internal Medicine
DX: G45.9 Transient cerebral ischemic attack, unspecified (principal); E86.0 Dehydration; G47.30 Sleep apnea, unspecified; E78.00 Pure hypercholesterolemia, unspecified; I10 Essential (primary) hypertension; K21.9 Gastro-esophageal reflux disease without esophagitis; M19.90 Unspecified osteoarthritis, unspecified site; M48.56XA Collapsed vertebra, not elsewhere classified, lumbar region, initial encounter for fracture; F32.9 Major depressive disorder, single episode, unspecified; Z79.4 Long term (current) use of insulin; Z79.899 Other long term (current) drug therapy; Z79.02 Long term (current) use of antithrombotics/antiplatelets; Z79.890 Hormone replacement therapy; Z90.89 Acquired absence of other organs; Z90.710 Acquired absence of both cervix and uterus; E11.9 Type 2 diabetes mellitus without complications; E03.9 Hypothyroidism, unspecified; F03.90 Unspecified dementia, unspecified severity, without behavioral disturbance, psychotic disturbance, mood disturbance, and anxiety
CPT/HCPCS: 36410; 51701; 70450; 70551; 71045; 73590; 76937; 80048; 80053; 80061; 81000; 82947 ×4; 84484; 85025 ×2; 85379; 85610; 85730; 93005; 93041; 94760; 97162; 97165; 99284; C1751; 36415; 96360; G0378

== ENCOUNTER → 2020-11-22 | Outpatient (CLI) | payer MEDICARE ==
[~2020-11-22] MED LIST changes: +INSU100V5 SQ
--- NOTE | 2020-11-22 15:03 | Diagnostic Imaging Report ---
PROCEDURE: MR imaging of the brain without contrast. TECHNIQUE: Multiplanar, multisequence MR imaging of the brain was performed without contrast. INDICATION: Vision changes. COMPARISON: 07/11/2020. Findings: No acute ischemia, mass, or hemorrhage. Scattered chronic microvascular disease is seen in the periventricular and subcortical white matter. The ventricles and cortical sulci are prominent. The basilar cisterns are symmetric and unremarkable. The sellar and suprasellar regions have a normal appearance. The brainstem and posterior fossa are unremarkable. The paranasal sinuses and mastoid air cells demonstrate normal signal characteristics. The globes and orbits are symmetric and unremarkable. The scalp and calvarium have a normal appearance. Impression: 1. No acute ischemia, mass, or hemorrhage. 2. Scattered chronic microvascular disease. 3. Generalized parenchymal volume loss. Dictated by: Dictated on workstation # [id number]
== END ==
LOC: RAD 13:15
PROVIDERS: ATTEND Neurological Surgery
DX: I67.89 Other cerebrovascular disease (principal); G46.4 Cerebellar stroke syndrome
CPT/HCPCS: 70551